=== PATIENT | male | born 1935 | race Caucasian/White ===

== ENCOUNTER → 2016-12-16 | Outpatient (CLI) | payer OTHER ==
[2015-12-02 11:22] VITALS: BP 108/62
[~2016-12-16] MED LIST: AMIN30LI2 PO; ASPI-482 PO; BRIM5DRO2 OP; BRIM5DRO3 EACHEYE; CALC1TAB75 PO; CARV3.12 PO; CARV6.25 PO; CARV6.252 PO; CITA20TA5 PO; DEXT237L PO; FURO-68 PO; FURO40TA4 PO; GADOBUTROL 10 MMOL/10 ML VIAL IV ONE; HYDR-2678 PO; HYDR12.53 PO; Hydrocodone/Acetaminophen PO; LATA2.5D2 OP; LATA2.5D3 OP; MULT1TAB97 PO; OMEG1CAP6 PO; OXYC-323 PO; POTA10TA12 PO; POTASSIUM CHLO10 MEQ PO; SIMV20TA3 PO; TAMS0.4C97 PO; TIMO1DRO2 OP; TIMO5DRO5 EACHEYE
--- NOTE | 2016-12-16 13:17 | KCIC ---
INDICATION: Solitary plasmacytoma of bone. Low back pain and the recent weeks. TECHNIQUE: Sagittal T1, sagittal T2, sagittal STIR, sagittal postcontrast, axial T1, axial T2, and axial postcontrast sequences are provided. 10 mL of intravenous Gadavist was administered without complication. Comparison is from March 01, 2016. FINDINGS: T1 hypointense enhancing lesion in the L5 vertebral body is slightly decreased in size. There is evidence of old pathologic fracture, similar degree of collapse is noted on today's study. Collapse posteriorly is greater than 50 percent. The lesion is T1 hypointense and T2 and STIR mildly hyperintense. An additional lesion is not identified. Relative fatty marrow from L4 through the sacrum when compared to the upper lumbar spine may be related to radiation change. There is no malalignment. There is diffuse disc desiccation. Disc height is relatively maintained. There is subcutaneous edema. The conus medullaris is normal in signal intensity and in position. Degenerative findings were described level by level on the prior study. Degenerative findings appear stable. There is canal stenosis at L3-L4 and L4-L5, moderate. This is secondary to degenerative disc disease and facet and ligamentum flavum hypertrophy. Foraminal narrowing is greatest at L4-L5. There is a lesion in the left ilium which has similar imaging characteristics to the L5 lesion, could represent a second plasmacytoma. Finding is similar to the June 22, 2015 exam. IMPRESSION: 1. Stable lesion at L5 compatible with provided history of plasmacytoma. 2. Lesion in the left ilium is stable as well. No new lesion is identified. 3. Degenerative findings are stable compared to a year ago. There is moderate canal stenosis at L3-L4 and L4-L5 with foraminal narrowing greatest at L4-L5. Electronically signed by: Esau Frias MD (12/16/2016 1:14 PM) [facility]-[email or web address]
== END | disposition home or self-care (01) ==
LOC: KCIC MRI 09:51
PROVIDERS: ATTEND Internal Medicine Hematology & Oncology
DX: C90.30 Solitary plasmacytoma not having achieved remission (principal); M48.06 Spinal stenosis, lumbar region
CPT/HCPCS: 72158; A9585

== ENCOUNTER → 2017-04-27 | Outpatient (CLI) | payer OTHER | END | disposition home or self-care (01) | LOC: KCIC 12:10 | DX: R05 Cough (principal) | CPT/HCPCS: 71046 ==

== ENCOUNTER 2017-06-24 20:02 | Inpatient (IN) | payer OTHER ==
[2017-06-24] MEDS: ASPIRIN CHEWABLE 81 MG TABLET. PO (20:25)
[2017-06-24 20:29] LABS: ADD MAN DIFF? NO
[2017-06-24] MEDS ORDERED: ONDANSETRON PF 4 MG/2 ML VIAL. (20:30)
[2017-06-24 20:31] LABS: BASO % 1 % (0-3); EOS # 0.1 x10^3/uL (0.0-0.7); EOS % 3 % (0-3); HEMOGLOBIN 11.4 g/dL (13.0-17.5); LYMPH # 1.5 x10^3/uL (1.0-4.8); LYMPH % 32 % (24-48); MEAN CORPUSCULAR HEMOGLOBIN 33 pg (25-35); MEAN CORPUSCULAR HGB CONC 34 g/dL (31-37); MEAN CORPUSCULAR VOLUME 96 fL (79-100); MONO # 0.4 x10^3/uL (0.0-1.1); MONO % 9 % (0-9); NEUT # 2.5 x10^3uL (1.8-7.7); NEUT % 56 % (31-73); PLATELET COUNT 166 x10^3/uL (140-400); RED BLOOD COUNT 3.45 x10^6/uL (4.30-5.70); RED CELL DISTRIBUTION WIDTH 13.9 % (11.5-14.5); WHITE BLOOD COUNT 4.6 x10^3/uL (4.0-11.0)
[2017-06-24] MEDS: fentaNYL PF VIAL 100 MCG/2 ML VIAL IV ×2 (20:35→21:49)
[2017-06-24] MEDS: ONDANSETRON PF 4 MG/2 ML VIAL. IV (20:35)
[2017-06-24] MEDS: NITROGLYCERIN SUBLINGUAL 0.4 MG BOTTLE OF 25. SL (20:35)
[2017-06-24 20:41] LABS: ANION GAP 6 (6-14); BLOOD UREA NITROGEN 17 mg/dL (8-26); BUN/CREATININE RATIO 19 (6-20); CALCIUM 9.8 mg/dL (8.5-10.1); CARBON DIOXIDE 32 mmol/L (21-32); CHLORIDE 104 mmol/L (98-107); CREATININE 0.9 mg/dL (0.7-1.3); GFR 81.4; GLUCOSE 139 mg/dL (70-99); POTASSIUM 3.8 mmol/L (3.5-5.1); SODIUM 142 mmol/L (136-145)
[2017-06-24 20:48] LABS: ALBUMIN 3.5 g/dL (3.4-5.0); ALBUMIN/GLOBULIN RATIO 0.9 (1.0-1.7); ALK PHOS 62 U/L (46-116); ALT (SGPT) 26 U/L (16-63); AST (SGOT) 25 U/L (15-37); LIPASE 84 U/L (73-393); TOTAL BILIRUBIN 0.3 mg/dL (0.2-1.0); TOTAL PROTEIN 7.4 g/dL (6.4-8.2)
[2017-06-24 20:48] LABS: TROPONINI 0.038 ng/mL (0.000-0.055)
[2017-06-24 20:52] LABS: NT-PRO BNP 341 pg/mL (0-449)
[2017-06-24] MEDS: CHLORTHALIDONE 25 MG TABLET. PO (21:48)
[2017-06-24 22:05] LABS: BARBITURATES NEG (NEG); BENZODIAZEPINES NEG (NEG); CANNABINOIDS NEG (NEG); COCAINE NEG (NEG); METHADONE NEG (NEG); OPIATES NEG (NEG); PHENCYCLIDINE NEG (NEG)
[2017-06-24 22:06] LABS: AMPHETAMINE/METHAMPHETAMINE NEG (NEG); ETHANOL, URINE NEG (NEG)
[2017-06-24] MEDS ORDERED: ONDANSETRON PF 4 MG/2 ML VIAL. IV (23:00)
[2017-06-24] MEDS ORDERED: MORPHINE SULFATE 4 MG/ML DISP.SYRIN. IV (23:00)
[2017-06-24] MEDS ORDERED: NITROGLYCERIN SUBLINGUAL 0.4 MG BOTTLE OF 25. SL (23:00)
[2017-06-24] MEDS ORDERED: DEXTROSE 50% 25 GM / 50ML DISP.SYRIN. IV (23:30)
[2017-06-24] MEDS: ACETAMINOPHEN 325 MG TABLET. PO (23:31)
[2017-06-25 03:29] LABS: TROPONINI 0.051 ng/mL (0.000-0.055)
[2017-06-25 05:13] LABS: ADD MAN DIFF? NO
[2017-06-25 05:43] LABS: BASO % 0 % (0-3); EOS # 0.1 x10^3/uL (0.0-0.7); EOS % 2 % (0-3); LYMPH # 1.3 x10^3/uL (1.0-4.8); LYMPH % 28 % (24-48); MEAN CORPUSCULAR HEMOGLOBIN 33 pg (25-35); MEAN CORPUSCULAR HGB CONC 35 g/dL (31-37); MEAN CORPUSCULAR VOLUME 96 fL (79-100); MONO # 0.4 x10^3/uL (0.0-1.1); MONO % 8 % (0-9); NEUT # 2.8 x10^3uL (1.8-7.7); NEUT % 62 % (31-73); PLATELET COUNT 137 x10^3/uL (140-400); RED BLOOD COUNT 3.01 x10^6/uL (4.30-5.70); RED CELL DISTRIBUTION WIDTH 14.2 % (11.5-14.5); WHITE BLOOD COUNT 4.5 x10^3/uL (4.0-11.0)
[2017-06-25 05:45] LABS: TROPONINI 0.044 ng/mL (0.000-0.055)
[2017-06-25 06:09] LABS: ANION GAP 12 (6-14); BLOOD UREA NITROGEN 17 mg/dL (8-26); CALCIUM 8.8 mg/dL (8.5-10.1); CARBON DIOXIDE 28 mmol/L (21-32); CHLORIDE 105 mmol/L (98-107); GFR 72.1; GLUCOSE 157 mg/dL (70-99); SODIUM 145 mmol/L (136-145)
[2017-06-25 06:23] LABS: POTASSIUM 2.8 mmol/L (3.5-5.1)
[2017-06-25] MEDS: INSULIN ASPART 300 UNITS/3 ML INSULN.PEN SQ ×3 (08:00→17:00)
[2017-06-25 08:05] LABS: POC GLUCOSE 124 mg/dL (70-99)
[2017-06-25] MEDS: POTASSIUM CHLORIDE 20 MEQ TABLET.ER. PO ×2 (08:13→17:23)
[2017-06-25] MEDS: hydroCHLOROthiazide 12.5 MG CAPSULE PO (09:26)
[2017-06-25] MEDS: ASPIRIN ENTERIC COATED 81 MG TABLET.DR. PO (09:26)
[2017-06-25] MEDS: CITALOPRAM 20 MG TABLET. PO (09:27)
[2017-06-25] MEDS: CARVEDILOL 6.25 MG TABLET. PO ×3 (09:27→17:24)
[2017-06-25 12:19] LABS: POC GLUCOSE 111 mg/dL (70-99)
[2017-06-25 16:59] LABS: POC GLUCOSE 116 mg/dL (70-99)
[2017-06-25] MEDS: LATANOPROST 0.005% OPHTH SOLUTION 2.5ML BOTTLE. OU (21:00)
[2017-06-25] MEDS: SIMVASTATIN 20 MG TABLET PO (21:26)
[2017-06-25] MEDS: TAMSULOSIN 0.4 MG CAP.ER.24H. PO (21:26)
[2017-06-25] MEDS: ACETAMINOPHEN 325 MG TABLET. PO (21:28)
[2017-06-26] MEDS: INSULIN ASPART 300 UNITS/3 ML INSULN.PEN SQ (08:00)
[2017-06-26 08:06] LABS: POC GLUCOSE 117 mg/dL (70-99)
[2017-06-26] MEDS: CITALOPRAM 20 MG TABLET. PO (08:14)
[2017-06-26] MEDS: POTASSIUM CHLORIDE 20 MEQ TABLET.ER. PO (08:14)
[2017-06-26] MEDS: ASPIRIN ENTERIC COATED 81 MG TABLET.DR. PO (08:15)
[2017-06-26] MEDS: CARVEDILOL 6.25 MG TABLET. PO (08:22)
[2017-06-26] MEDS: FUROSEMIDE 40 MG TABLET. PO (08:22)
[2017-06-26] MEDS: hydroCHLOROthiazide 12.5 MG CAPSULE PO (08:24)
[2017-06-26 09:48] LABS: POTASSIUM 3.4 mmol/L (3.5-5.1)
== END 2017-06-26 12:35 | disposition home health service (06) | DRG 305 ==
LOC: ER 20:02 → 5 NORTH 22:01
DX: I16.0 Hypertensive urgency (principal); G61.0 Guillain-Barre syndrome; I50.9 Heart failure, unspecified; E87.6 Hypokalemia; I11.0 Hypertensive heart disease with heart failure; E11.9 Type 2 diabetes mellitus without complications; E78.5 Hyperlipidemia, unspecified; F41.9 Anxiety disorder, unspecified; I25.10 Atherosclerotic heart disease of native coronary artery without angina pectoris; F32.9 Major depressive disorder, single episode, unspecified; T50.2X5A Adverse effect of carbonic-anhydrase inhibitors, benzothiadiazides and other diuretics, initial encounter; I25.2 Old myocardial infarction; Z85.46 Personal history of malignant neoplasm of prostate; Z86.73 Personal history of transient ischemic attack (TIA), and cerebral infarction without residual deficits; Z95.5 Presence of coronary angioplasty implant and graft
CPT/HCPCS: 36415; 70450; 71045; 80048; 80053; 80307; 82962; 83690; 83880; 84132; 84484; 85025; 93005; 96374; 96375; 96376; 99285; 99285-25; J1815; J2405; J3010

== ENCOUNTER 2017-07-21 06:51 | Outpatient (CLI) | payer OTHER ==
[2017-07-21 07:24] LABS: ADD MAN DIFF? NO
[2017-07-21 07:25] LABS: BASO % 1 % (0-3); EOS # 0.1 x10^3/uL (0.0-0.7); EOS % 3 % (0-3); HEMATOCRIT 35.1 % (39.0-53.0); HEMOGLOBIN 12.3 g/dL (13.0-17.5); LYMPH # 1.3 x10^3/uL (1.0-4.8); LYMPH % 29 % (24-48); MEAN CORPUSCULAR HEMOGLOBIN 33 pg (25-35); MEAN CORPUSCULAR HGB CONC 35 g/dL (31-37); MEAN CORPUSCULAR VOLUME 95 fL (79-100); MONO # 0.3 x10^3/uL (0.0-1.1); MONO % 7 % (0-9); NEUT # 2.8 x10^3uL (1.8-7.7); NEUT % 60 % (31-73); PLATELET COUNT 156 x10^3/uL (140-400); RED BLOOD COUNT 3.71 x10^6/uL (4.30-5.70); RED CELL DISTRIBUTION WIDTH 13.8 % (11.5-14.5); WHITE BLOOD COUNT 4.6 x10^3/uL (4.0-11.0)
[2017-07-21 07:37] LABS: PROTHROMBIN TIME PATIENT 12.3 SEC (11.7-14.0)
[2017-07-21] MEDS ORDERED: fentaNYL PF VIAL 100 MCG/2 ML VIAL (08:21)
[2017-07-21] MEDS ORDERED: MIDAZOLAM HCL/PF 2 MG/2 ML VIAL. (08:21)
[2017-07-21] MEDS ORDERED: LIDOCAINE WITH 8.4% SOD BICARB 3 ML DISP.SYRIN. (08:27)
[2017-07-21] MEDS: fentaNYL PF VIAL 100 MCG/2 ML VIAL IV (08:53)
[2017-07-21] MEDS: MIDAZOLAM HCL/PF 2 MG/2 ML VIAL. IV (08:53)
[2017-07-21] MEDS: LIDOCAINE WITH 8.4% SOD BICARB 3 ML DISP.SYRIN. IJ (08:53)
== END 2017-07-21 10:15 | disposition home or self-care (01) ==
LOC: INTRAD 06:51
DX: C79.51 Secondary malignant neoplasm of bone (principal); C80.1 Malignant (primary) neoplasm, unspecified
CPT/HCPCS: 36415; 38222; 77012; 85025; 85610; 88184; 88185; 88237; 99152; J2250; J3010

== ENCOUNTER → 2017-11-24 | Outpatient (CLI) | payer OTHER ==
[2017-07-21 10:00] VITALS: BP 133/68
[~2017-11-24] MED LIST changes: -CITA20TA5 PO; +CITA20TA6 PO; -GADOBUTROL 10 MMOL/10 ML VIAL IV ONE; -POTASSIUM CHLO10 MEQ PO
--- NOTE | 2017-11-24 14:44 | KCIC ---
EXAM: Metastatic Survey DATE: 11/24/2017 12:00 AM CLINICAL INDICATION: COMPARISON: No prior TECHNIQUE: Survey images of the skull, axial skeleton, pelvis and proximal appendicular skeleton submitted. PA view of the chest also submitted. FINDINGS: Lateral views of the skull are negative for focal lytic or blastic abnormality. Negative for acute fracture or sutural diastasis. Decreased bone density. Survey of the axial skeletal shows moderate degenerative changes of the cervical and lumbar spine. No spondylolisthesis. Negative focal lytic or blastic abnormality. Negative compression fracture. Comparative to appendicular skeleton, similar reduction in bone density. AP view of the pelvis is negative for focal lytic or blastic abnormality Comparative to appendicular skeleton, similar reduction in bone density. Negative pathologic fracture. Hip joint spaces are preserved bilaterally. Survey of the proximal appendicular skeleton is negative for focal lytic or blastic abnormality, or endosteal scalloping. Negative pathologic fracture. Decreased bone mineral density. PA chest exam is negative for consolidation or edema. Cardiac silhouette size normal. Negative expansile rib lesion. Old posterior right rib fractures are seen. Atherosclerotic calcifications of the tortuous aorta are seen. Negative lytic or blastic abnormality of the visualized marginal bony skeleton. IMPRESSION: 1. Within the constraints of decreased bone mineral density, no definite lytic or blastic lesion is identified. Electronically signed by: Jesus Nagel MD (11/24/2017 2:41 PM) [id number]
== END | disposition home or self-care (01) ==
LOC: KCIC 08:00
PROVIDERS: ATTEND Internal Medicine Hematology & Oncology
DX: C90.30 Solitary plasmacytoma not having achieved remission (principal); D47.2 Monoclonal gammopathy; I25.2 Old myocardial infarction; M16.0 Bilateral primary osteoarthritis of hip; I11.0 Hypertensive heart disease with heart failure; I50.9 Heart failure, unspecified; E11.9 Type 2 diabetes mellitus without complications; E78.5 Hyperlipidemia, unspecified; E87.6 Hypokalemia; I25.10 Atherosclerotic heart disease of native coronary artery without angina pectoris; Z86.73 Personal history of transient ischemic attack (TIA), and cerebral infarction without residual deficits; Z87.891 Personal history of nicotine dependence; Z85.46 Personal history of malignant neoplasm of prostate; Z82.49 Family history of ischemic heart disease and other diseases of the circulatory system
CPT/HCPCS: 77075

== ENCOUNTER 2017-11-27 08:55 | Outpatient (CLI) | payer OTHER ==
[2017-11-27] VITALS (8 sets, daily range): BP systolic 106–195; BP diastolic 64–100
[~2017-11-27] VITALS: Ht 177.8 cm; Wt 99.8 kg
[2017-11-27] MEDS ORDERED: LIDOCAINE WITH 8.4% SOD BICARB 3 ML DISP.SYRIN. ONE (10:14)
[2017-11-27 10:43] LABS: BASO % 1 % (0-3); EOS # 0.1 x10^3/uL (0.0-0.7); EOS % 2 % (0-3); HEMATOCRIT 33.1 % (39.0-53.0); HEMOGLOBIN 11.4 g/dL (13.0-17.5); LYMPH # 1.2 x10^3/uL (1.0-4.8); LYMPH % 27 % (24-48); MEAN CORPUSCULAR HEMOGLOBIN 33 pg (25-35); MEAN CORPUSCULAR HGB CONC 34 g/dL (31-37); MEAN CORPUSCULAR VOLUME 97 fL (79-100); MONO # 0.4 x10^3/uL (0.0-1.1); MONO % 8 % (0-9); NEUT # 2.7 x10^3uL (1.8-7.7); NEUT % 62 % (31-73); PLATELET COUNT 152 x10^3/uL (140-400); RED BLOOD COUNT 3.42 x10^6/uL (4.30-5.70); RED CELL DISTRIBUTION WIDTH 13.5 % (11.5-14.5); WHITE BLOOD COUNT 4.4 x10^3/uL (4.0-11.0)
[2017-11-27] MEDS ORDERED: fentaNYL PF VIAL 100 MCG/2 ML VIAL ONE (11:00)
[2017-11-27] MEDS ORDERED: MIDAZOLAM HCL/PF 2 MG/2 ML VIAL. ONE (11:00)
[2017-11-27 11:10] LABS: PROTHROMBIN TIME PATIENT 12.9 SEC (11.7-14.0)
[2017-11-27] MEDS ORDERED: fentaNYL PF VIAL 100 MCG/2 ML VIAL IV ONE (11:15)
[2017-11-27] MEDS ORDERED: MIDAZOLAM HCL/PF 2 MG/2 ML VIAL. IV ONE (11:15)
[2017-11-27] MEDS ORDERED: LIDOCAINE WITH 8.4% SOD BICARB 3 ML DISP.SYRIN. IJ ONE (11:15)
--- NOTE | 2017-11-27 11:41 | RAD ---
CT-guided bone marrow biopsy. 11/27/2017 11:36 AM Indication: PLASMACYTOMA, MYELOMA Discussion: The risks and benefits of the procedure, including but not limited to, bleeding and infection were discussed patient. Informed consent was obtained. The patient was brought to the CT scanner and placed in the prone position. A timeout procedure was performed. Hvac [employer]er CT imaging of the pelvis demonstrated left ilium amenable to bone marrow biopsy. The overlying soft tissues were prepped and draped using maximum sterile barrier technique. 1% lidocaine without epinephrine was administered for local anesthesia. Under intermittent CT guidance, an OncControl needle was advanced into the bone marrow of the left iliac crest. 2 Aspirates and 1 core biopsy samples were obtained. Samples were delivered to pathology was present at the time of procedure. The needle was removed and manual pressure held to achieve hemostasis. Secondary to scant cellularity with the sample, the process was repeated. No immediate complications were identified. The procedure was performed under conscious sedation including continuous cardiopulmonary monitoring via dedicated sedation nurse. Sedation time:25 minutes Impression: CT-guided bone marrow biopsy of the left iliac crest . PQRS Compliance Statement: One or more of the following individualized dose reduction techniques were utilized for this examination: 1. Automated exposure control 2. Adjustment of the mA and/or kV according to patient size 3. Use of iterative reconstruction technique
== END 2017-11-27 12:39 | disposition home or self-care (01) ==
LOC: INTRAD 08:55
PROVIDERS: ATTEND Internal Medicine Hematology & Oncology
DX: C90.30 Solitary plasmacytoma not having achieved remission (principal); Z79.01 Long term (current) use of anticoagulants
CPT/HCPCS: 36415; 38222; 77012; 85025; 85610; 85730; 99152; 99153; J2250; J3010; 88184; 88185; 88237

== ENCOUNTER → 2017-12-28 | Outpatient (CLI) | payer OTHER ==
[2017-12-21 11:00] VITALS: BP 124/65
[~2017-12-28] MED LIST changes: +BUPIVACAINE MPF 0.25% 10 ML VIAL. ONE; +BUSP10TA PO; +DOCU100C28 PO; +HYDR-2758 PO; +IOHEXOL 180 MG/ML 10 ML VIAL. ONE; +LIDOCAINE 2% PF 2ML VIAL. ONE; +methylPREDNISolone ACETATE 80 MG/ML VIAL. ONE
--- NOTE | 2017-12-28 20:58 | PAIN ---
DATE OF SERVICE: 12/28/2017 DIAGNOSIS: Bilateral sacroiliitis. HISTORY OF PRESENT ILLNESS: The patient is an 82-year-old male who returns for followup, last seen as an inpatient. The patient with sacroiliitis and significant posterior hip pain on the right side. The patient reports his left side is having some significant pain as well today and has become basically equal right and left with pain mostly with moving, changing positions, standing from sitting position and sitting from standing, is a cramping pain, is sharp, shooting. No radiation into the lower extremities currently, but sometimes into the groin on the right side. The patient reports his pain is a 7 on a scale of 10 at its worst, 4 on average and 4 at its least and is a 4 today. The patient reports it is much more difficult getting around and he is undergoing physical therapy currently, which he does report is helping he thinks significantly to increase his mobility and decrease his pain, but still is fairly tender with any movement or motion, especially standing and walking and again change in positions. The patient reports no new motor or sensory deficits. No new bowel or bladder incontinence or other complaints. PHYSICAL EXAMINATION: VITAL SIGNS: The patient's blood pressure 145/78, pulse 65, respirations are 18, temperature 97.7 degrees Fahrenheit, height is 5 feet 10 inches, weight is 216 pounds. GENERAL: The patient is awake, alert, oriented, appropriate, very pleasant demeanor. HEENT: Shows normocephalic, atraumatic. Extraocular movements are intact and symmetrical. Oral cavity: Mucous membranes are moist and pink. Dentition is intact. NECK: Shows anterior throat supple. CHEST: Shows normal on inspection. Breath sounds clear to auscultation bilaterally. HEART: Shows S1, S2 clear. ABDOMEN: Soft, nontender, nondistended. No palpable organomegaly is noted. No rebound or guarding demonstrated. BACK: Shows spine grossly in the midline, slight exaggerated thoracic kyphosis and minor flattening of lumbar lordotic curvature. Palpation over the spinous sacroiliac region shows significant tenderness bilaterally, slightly worse on the right than the left, but present bilaterally without significant radiation. The patient has good rotational motion of the lumbar spine without significant tenderness as well as extension and flexion without difficulty. EXTREMITIES: Lower extremities show deep tendon reflexes at 1+ in the patellar and tendo calcaneus tendons. Motor exam is approximately 4 on a scale of 5 dorsiflexion and extension, but equal and symmetrical. Options were discussed with the patient. The patient's old chart was reviewed as is his current medication regimen updated. Current review of systems is updated today as well. We will proceed with bilateral sacroiliac joint injection today with fluoroscopic guidance. Risks were again discussed including, but not limited to bleeding, infection, possibility of intravascular injection sequelae, spread of local anesthetic and numbness, side effects of steroid medication, exposure to fluoroscopy and poor results regarding pain control. The patient understands and wished to proceed. The patient will return to the clinic in approximately 2 weeks for followup, was counseled on return appointment, activity level and side effects to be aware of. DIAGNOSIS: Bilateral sacroiliitis. PROCEDURE: Bilateral sacroiliac joint injections using C-arm fluoroscopic guidance under sterile prep and drape using local anesthetic. MEDICATION INJECTED: A total of 80 mg Depo-Medrol plus 6 mL of 0.25% bupivacaine and 3 mL of Isovue for contrast. CONDITION AT DISCHARGE: Stable. The patient tolerated the procedure well, had no complications. LAURA GOOD MD DR: PHANI/kizzy JOB#: [id number] / [id number]
== END | disposition home or self-care (01) ==
LOC: PNCL 14:06
PROVIDERS: ATTEND Anesthesiology
DX: M46.1 Sacroiliitis, not elsewhere classified (principal); D64.9 Anemia, unspecified; I25.10 Atherosclerotic heart disease of native coronary artery without angina pectoris; N40.0 Benign prostatic hyperplasia without lower urinary tract symptoms; I42.0 Dilated cardiomyopathy; E78.5 Hyperlipidemia, unspecified; F41.9 Anxiety disorder, unspecified; M16.0 Bilateral primary osteoarthritis of hip; I11.0 Hypertensive heart disease with heart failure; I50.9 Heart failure, unspecified; E11.9 Type 2 diabetes mellitus without complications; E03.9 Hypothyroidism, unspecified; F32.9 Major depressive disorder, single episode, unspecified; I25.2 Old myocardial infarction; E66.01 Morbid (severe) obesity due to excess calories; Z68.30 Body mass index [BMI] 30.0-30.9, adult; Z85.46 Personal history of malignant neoplasm of prostate; Z95.5 Presence of coronary angioplasty implant and graft; Z79.899 Other long term (current) drug therapy; Z79.82 Long term (current) use of aspirin; Z85.89 Personal history of malignant neoplasm of other organs and systems; Z79.01 Long term (current) use of anticoagulants; Z87.891 Personal history of nicotine dependence; Z86.73 Personal history of transient ischemic attack (TIA), and cerebral infarction without residual deficits
CPT/HCPCS: 27096; J1040; J2001; J3490; Q9965; G0260

== ENCOUNTER → 2018-02-08 | Outpatient (CLI) | payer OTHER ==
[2017-12-21 11:00] VITALS: BP 124/65
[~2018-02-08] MED LIST changes: +LIDOCAINE 1% PF 2 ML VIAL. ONE; -LIDOCAINE 2% PF 2ML VIAL. ONE
--- NOTE | 2018-02-08 15:12 | PAIN ---
DATE OF SERVICE: 02/08/2018 PROGRESS NOTE FOR PAIN CLINIC DIAGNOSES: 1. Bilateral sacroiliitis 2. Right hip joint pain with primary osteoarthritis, right hip joint. HISTORY OF PRESENT ILLNESS: The patient is an 82-year-old male who returns for followup status post bilateral sacroiliac joint injections on 12/28/2017. The patient did fairly well with these, but without significant improvement on the right side. The patient reports the left side is doing much better, the right side has still significant pain. The patient has recently seen his orthopedic surgeon with new evaluation and probable etiology of pain from the right intraarticular acetabular femoral joint. , the patient reports worse with weightbearing, standing, especially with stepping on a stair on his right leg with pain in the hip itself radiating into the groin and into the anterior thigh as well as in the posterior aspect of the hip. The patient reports it is better with sitting or lying down, does not awaken him from sleep at night, sleeps 7-8 hours at a time. The patient reports pain is a 7 on a scale of 10 at its worst, 5 on average and 3 at its least and is a 5 today. The patient reports it is sharp, stabbing, becoming more constant, again worse with ambulation, standing, changing positions, getting up from sitting position as well. The patient reports no new motor or sensory deficits, no bowel or bladder incontinence or other complaints. PHYSICAL EXAMINATION: VITAL SIGNS: The patient's blood pressure is 107/67, pulse 74, respirations 16, temperature 97.6 degrees Fahrenheit, weight is 213 pounds. GENERAL: The patient is awake, alert, oriented, appropriate, very pleasant demeanor. The patient is accompanied by his spouse. HEENT: Shows normocephalic, atraumatic. Extraocular movements are intact and symmetrical. Oral cavity: Mucous membranes are moist and pink. Dentition is intact. NECK: Shows anterior throat supple without palpable lymphadenopathy noted. Swallow reflex is symmetrical. CHEST: Shows normal on inspection. Breath sounds are clear to auscultation bilaterally. HEART: Shows S1, S2 clear. No murmurs auscultated. ABDOMEN: Soft, nontender, nondistended. BACK: Shows spine grossly in the midline. Exaggerated thoracic kyphosis, some flattening of cervical lordotic curvature and lumbar lordotic curvature. Paraspinous musculature in the lumbar distribution shows symmetrical with palpation, on rotational motion shows limited rotational motion, but not secondary to pain as well as extension and flexion, however performed without significant pain reported. EXTREMITIES: Lower extremities show deep tendon reflexes at 1+ in the patellar and tendo-calcaneus tendons. Motor exam is approximately 4 on a scale of 5, but equal and symmetrical with dorsiflexion, extension, quadriceps and hamstring flexion. Peripheral pulses are 1+ posterior tibia. No peripheral edema is noted bilaterally. The patient's right hip shows positive John's sign with external rotation of the right hip and knee flexion. Left side is tender, but not nearly to the extent that it is on the right with this maneuver. Options were discussed with the patient and the patient's spouse who accompanies him to this visit today. The patient's old chart was reviewed as his current medication regimen updated. Current review of systems updated today as well. We will proceed with a right intraarticular hip joint injection today with fluoroscopic guidance. Risks were discussed including but not limited to bleeding, infection, possibility of intravascular injection sequelae, spread of local anesthetic and numbness, side effects of steroid medication and poor results regarding pain control. The patient understands and wished to proceed. The patient will return to the clinic in approximately 2 weeks for followup, was counseled on return appointment, activity level and side effects to be aware of. DIAGNOSIS: Right hip joint pain with primary osteoarthritis, right hip joint. PROCEDURE: Right intraarticular hip joint injection using C-arm fluoroscopic guidance under sterile prep and drape using local anesthetic. MEDICATION INJECTED: A total of 80 mg of Depo-Medrol plus total of 3 mL of 0.25% bupivacaine and 3 mL of Isovue for contrast. CONDITION AT DISCHARGE: Stable. The patient tolerated the procedure well, had no complications. LAURA GOOD MD DR: PHANI/kizzy JOB#: [id number] / [id number]
== END | disposition home or self-care (01) ==
LOC: PNCL 10:37
PROVIDERS: ATTEND Anesthesiology
DX: M16.11 Unilateral primary osteoarthritis, right hip (principal); M46.1 Sacroiliitis, not elsewhere classified
CPT/HCPCS: 20610; 77002; J1040; J3490; Q9965

== ENCOUNTER → 2018-03-21 | Outpatient (CLI) | payer OTHER ==
[2017-12-21 11:00] VITALS: BP 124/65
[~2018-03-21] MED LIST changes: -BUPIVACAINE MPF 0.25% 10 ML VIAL. ONE; +CARV6.2511 PO; -CARV6.252 PO; +CONTRAST GIVEN. MC PRN; -HYDR-2758 PO; +HYDR-2761 PO; -HYDR12.53 PO; +HYDR12.575 PO; -IOHEXOL 180 MG/ML 10 ML VIAL. ONE; +IOHEXOL 240 MG/ML 50ML VIAL. PO ONE; +IOHEXOL 300 MG/ML 100ML VIAL. IV ONE; +IOHEXOL 300 MG/ML 100ML VIAL. ONE; -LIDOCAINE 1% PF 2 ML VIAL. ONE; -OXYC-323 PO; +OXYC1TAB15 PO; -methylPREDNISolone ACETATE 80 MG/ML VIAL. ONE
[2018-03-21 10:41] LABS: BASO % 1 % (0-3); EOS # 0.1 x10^3/uL (0.0-0.7); EOS % 2 % (0-3); HEMATOCRIT 30.4 % (39.0-53.0); HEMOGLOBIN 10.5 g/dL (13.0-17.5); LYMPH # 1.1 x10^3/uL (1.0-4.8); LYMPH % 24 % (24-48); MEAN CORPUSCULAR HEMOGLOBIN 32 pg (25-35); MEAN CORPUSCULAR HGB CONC 34 g/dL (31-37); MEAN CORPUSCULAR VOLUME 92 fL (79-100); MONO # 0.5 x10^3/uL (0.0-1.1); MONO % 10 % (0-9); NEUT # 2.9 x10^3uL (1.8-7.7); NEUT % 64 % (31-73); PLATELET COUNT 169 x10^3/uL (140-400); RED CELL DISTRIBUTION WIDTH 14.4 % (11.5-14.5); WHITE BLOOD COUNT 4.5 x10^3/uL (4.0-11.0)
[2018-03-21 11:01] LABS: ALBUMIN 3.2 g/dL (3.4-5.0); CALCIUM 9.3 mg/dL (8.5-10.1); DIRECT BILIRUBIN 0.1 mg/dL (0.0-0.2); GFR 71.9; POTASSIUM 3.6 mmol/L (3.5-5.1); TOTAL BILIRUBIN 0.3 mg/dL (0.2-1.0)
--- NOTE | 2018-03-21 14:44 | RAD ---
Examination: CT of the abdomen pelvis with IV contrast HISTORY: History of left-sided abdominal pain COMPARISON: 02/11/2015 TECHNIQUE: Axial CT images of the abdomen pelvis were performed with IV contrast. Coronal and sagittal reformats are performed Exposure: One or more of the following individualized dose reduction techniques were utilized for this examination: 1. Automated exposure control 2. Adjustment of the mA and/or kV according to patient size 3. Use of iterative reconstruction technique FINDINGS: The bibasilar lungs are clear. No evidence of free air identified in the abdomen. The visualized liver, spleen, adrenals grossly appears unremarkable. The gallbladder is mildly distended. Moderate size hiatal hernia. The small bowel is nondilated. Feces and gas noted in the colon. Multiple sigmoid colon diverticulosis. Feces and gas noted in the colon. Urinary bladder is mildly distended. The bilateral kidneys enhance symmetrically. Multiple cystic structures identified in the bilateral kidneys with the largest measuring 7.3 cm likely cysts. Mild superior endplate compression change of L2 vertebral body. There is moderate size compression change of L5 vertebral body. There is a lytic bone density identified in the L5 vertebral body which appears somewhat mildly sclerotic of the edges, similar to prior exam could be treated metastasis. Severe aortic atherosclerosis. Moderate vascular calcifications identified in the superior mesenteric artery and the bilateral renal arteries proximally. Impression: 1. Moderate hiatal hernia. 2. Bilateral renal cysts. 2. Multiple sigmoid colon diverticulosis. 4. There is a lytic bone density identified in the L5 vertebral body which appears somewhat mildly sclerotic of the edges, similar to prior exam could be treated metastasis. 5. Mild age indeterminate superior endplate compression change of L2 vertebral body. Electronically signed by: Aaron Hrerera MD (03/21/2018 2:40 PM) [id number]
== END | disposition home or self-care (01) ==
LOC: CT 09:52
PROVIDERS: ATTEND Family Medicine
DX: K44.9 Diaphragmatic hernia without obstruction or gangrene (principal); K57.30 Diverticulosis of large intestine without perforation or abscess without bleeding; K82.8 Other specified diseases of gallbladder; I70.0 Atherosclerosis of aorta; K55.1 Chronic vascular disorders of intestine; Z87.891 Personal history of nicotine dependence
CPT/HCPCS: 36415; 74177; 80048; 80076; 83690; 85025; Q9966; Q9967

== ENCOUNTER → 2018-05-25 | Outpatient (CLI) | payer OTHER ==
[2018-05-21 09:57] VITALS: BP 145/74
[~2018-05-25] MED LIST changes: +ACYC800T PO; +ASPI81TA50 PO; +CARB1TAB2 PO; -CONTRAST GIVEN. MC PRN; +FERR300L PO; -IOHEXOL 240 MG/ML 50ML VIAL. PO ONE; -IOHEXOL 300 MG/ML 100ML VIAL. IV ONE; -IOHEXOL 300 MG/ML 100ML VIAL. ONE; +LATA2.5D3 EACHEYE; +Pantoprazole PO
--- NOTE | 2018-05-25 15:28 | KCIC ---
Ultrasound venous Doppler INDICATION:Left lower extremity swelling TECHNIQUE: Grayscale, color Doppler and spectral waveform ultrasound images of the left lower extremity deep veins obtained. COMPARISON: None FINDINGS: The interrogated deep veins are compressible and demonstrate evidence of blood flow with normal respiratory variation and response to augmentation. IMPRESSION: No sonographic evidence of acute DVT of the left lower extremity deep veins. Electronically signed by: Lele Mena DO (05/25/2018 3:25 PM) [id number]
== END | disposition home or self-care (01) ==
LOC: KCIC US 13:54
PROVIDERS: ATTEND Internal Medicine Hematology & Oncology
DX: M79.89 Other specified soft tissue disorders (principal)
CPT/HCPCS: 93971

== ENCOUNTER → 2018-09-27 | Outpatient (CLI) | payer OTHER ==
[2018-06-19 15:00] VITALS: BP 117/70
--- NOTE | 2018-09-27 16:23 | KCIC ---
Examination: Left Lower Extremity Venous Doppler Ultrasound History: Left leg swelling, calf pain Comparison: 05/25/2018 Procedure: Thornton scale, color flow 2D and spectal waveform analysis images are obtained with and without compression in the area of the common femoral vein, superficial femoral vein - femoral vein junction, main femoral vein (superficial femoral vein) and popliteal vein. Veins of the proximal calf are also imaged. Findings: There is normal duplex flow, color flow and compressibility of all visualized vein segments. No evidence of deep venous thrombus is present. Impression: No evidence of DVT in the visualized left lower extremity venous system. Electronically signed by: Aaron Herrera MD (09/27/2018 4:20 PM) [facility]-KCIC2
== END | disposition home or self-care (01) ==
LOC: KCIC US 12:18
PROVIDERS: ATTEND Internal Medicine Hematology & Oncology
DX: C90.00 Multiple myeloma not having achieved remission (principal); M79.605 Pain in left leg; M79.89 Other specified soft tissue disorders
CPT/HCPCS: 93971

== ENCOUNTER 2019-04-29 10:16 | Emergency (ER) | payer MEDICARE ==
[~2019-04-29] VITALS: Ht 177.8 cm; Wt 88.0 kg
[~2019-04-29 10:16] MED LIST changes: +POTASSIUM CHLO10 ME1 PO; +SIMV20TA18 PO; -SIMV20TA3 PO
[2019-04-29] MEDS ORDERED: traMADol 50 MG TABLET PO ONE (11:00)
--- NOTE | 2019-04-29 11:44 | RAD ---
EXAM: Pelvis and left hip, 3 views; lumbar spine, 3 views. HISTORY: Pain. Fall. COMPARISON: None. FINDINGS: Pelvis and left hip: A frontal view of the pelvis and frontal and frog-leg views of the left hip are obtained. There is no fracture, dislocation or subluxation. There is lucency involving the cortex of the left inferior pubic ramus which is only seen on a single image and is likely artifactual. No convincing pubic ramus fracture is seen. There is mild bilateral hip osteoarthritis with marginal acetabular and femoral head spurring. Lumbar spine: 3 views of the lumbar spine are obtained. There is degenerative endplate remodeling with disc space narrowing and facet arthropathy predominantly at L4-5 and L5-S1. No fracture is seen. IMPRESSION: 1. Mild bilateral hip osteoarthritis. 2. Multilevel degenerative change involving the lumbar spine, primarily at L4-S1. Electronically signed by: Amee Henderson MD (04/29/2019 11:40 AM) [facility] [place]
--- NOTE | 2019-04-29 11:57 | PHYS DOC ---
Past Medical History Past Medical History: Cancer, Heart Disease, Hypertension, Other Additional Past Medical Histor: PROSTATE CA. 2008,PARKINSONS,MULTIPLE MYELOMA, GUILLAIN BARRE SYNDROME Past Surgical History: Other Additional Past Surgical Histo: BONE MARROW ASPIRATION, CARDIAC STENT Alcohol Use: None Drug Use: None Adult General Chief Complaint Chief Complaint: HIP PAIN HPI HPI Patient is a 83 year old male, accompanied by his , who presents to the ER with complaints of left hip, and low back back pain after a fall from standing one week ago. He states that he uses a walker for ambulation and he was transitioning from his walker to turn into the bathroom when he lost his balance and fell. He reports an chronic unsteady gait due to Parkinson's disease. Pt denies any new numbness, tingling, or weakness of extremities. He denies any head or neck pain. Pt denies LOC with the fall and he denies any nausea, vom iting, abdominal pain, saddle anesthesia, or loss of bowel/bladder control. He has been taking ibuprofen at home for pain relief and he currently rates his pain 5/10 on the pain scale. All other ROS is neg unless otherwise noted in HPI. Review of Systems Review of Systems See Above Current Medications Current Medications Current Medications Medications (Trade) Dose Ordered Sig/Isaac Start Time Stop Time Status Last Admin Dose Admin Orphenadrine Citrate (Norflex) 60 mg 1X ONCE 04/29/19 12:15 04/29/19 12:16 DC 04/29/19 12:38 60 MG Tramadol HCl (Ultram) 50 mg 1X ONCE 04/29/19 11:00 04/29/19 11:01 DC 04/29/19 11:29 50 MG Allergies Allergies Allergies Coded Allergies Type Severity Reaction Last Updated Verified No Known Medication Allergies Allergy Unknown 11/30/17 Yes Physical Exam Physical Exam See Above Constitutional: Well developed, well nourished, no acute distress, non-toxic appearance. [] HENT: Normocephalic, atraumatic, bilateral external ears normal, nose normal. [] Eyes: PERRLA, EOMI, conjunctiva normal, no discharge. [] Neck: Normal range of motion, no stridor. [] Cardiovascular:Heart rate regular rhythm Lungs & Thorax: Bilateral breath sounds clear to auscultation, Respirations even and unlabored, no retractions, no respiratory distress [] Abdomen: soft, no tenderness, no masses, no pulsatile masses. [] Skin: Warm, dry, no erythema, no rash. [] Back: no CVA tenderness; L paraspinal lumbar TTP, lumbar bony TTP, no crepitus, no obvious deformity Extremities: L lateral hip TTP, no shortening, no rotation, no crepitus, increased pain with ROM, limited ROM due to pain, no edema; R hip non-tender, no cyanosis, no clubbing, ROM intact, no edema. [] Neurologic: Alert and oriented X 3, no focal deficits noted. [] Psychologic: Affect normal, judgement normal, mood normal. [] Current Patient Data Vital Signs Vital Signs Date Time Temp Pulse Resp B/P (MAP) Pulse Ox O2 Delivery O2 Flow Rate FiO2 04/29/19 14:30 74 18 127/68 (87) 99 Room Air 04/29/19 10:40 99.5 99.5 Lab Values Laboratory Tests Test 04/29/19 12:37 Urine Collection Type Unknown Urine Color Yellow Urine Clarity Clear Urine pH 6.5 Urine Specific [place] 1.010 Urine Protein Negative mg/dL (NEG-TRACE) Urine Glucose (UA) Negative mg/dL (NEG) Urine Ketones (Stick) Negative mg/dL (NEG) Urine Blood Negative (NEG) Urine Nitrite Negative (NEG) Urine Bilirubin Negative (NEG) Urine Urobilinogen Dipstick 0.2 mg/dL (0.2 mg/dL) Urine Leukocyte Esterase Negative (NEG) Urine RBC 0 /HPF (0-2) Urine WBC Occ /HPF (0-4) Urine Squamous Epithelial Cells Occ /LPF Urine Bacteria 0 /HPF (0-FEW) Urine Hyaline Casts Few /HPF EKG EKG [] Radiology/Procedures Radiology/Procedures PROCEDURE: LUMBAR SPINE 2-3V EXAM: Pelvis and left hip, 3 views; lumbar spine, 3 views. HISTORY: Pain. Fall. COMPARISON: None. FINDINGS: Pelvis and left hip: A frontal view of the pelvis and frontal and frog-leg views of the left hip are obtained. There is no fracture, dislocation or subluxation. There is lucency involving the cortex of the left inferior pubic ramus which is only seen on a single image and is likely artifactual. No convincing pubic ramus fracture is seen. There is mild bilateral hip osteoarthritis with marginal acetabular and femoral head spurring. Lumbar spine: 3 views of the lumbar spine are obtained. There is degenerative endplate remodeling with disc space narrowing and facet arthropathy predominantly at L4-5 and L5-S1. No fracture is seen. IMPRESSION: 1. Mild bilateral hip osteoarthritis. 2. Multilevel degenerative change involving the lumbar spine, primarily at L4-S1.[] Course & Med Decision Making Course & Med Decision Making Pertinent Labs and Imaging studies reviewed. (See chart for details) 1242- Spoke with Dr. Sullivan and advised of patient in the ER. X-rays negative, UA pending. Advised that is worried about falls. Will offer patient admit for rehab. Patient declined admission for pain control. He was given IM norflex and tramadol in the ER, he reported comfort with rest after these mediations. Pt was instructed to follow up with his doctor in 1-2 days, return to the ER if symptoms worsen. Prescriptions written for flexeril and tramadol PRN Pt and his verbalized an understanding of home care, medications, follow- up, and return to ED instructions and were in agreement with the plan of care. [] Dragon Disclaimer Dragon Disclaimer This electronic medical record was generated, in whole or in part, using a voice recognition dictation system. Departure Departure Impression: Primary Impression: Hip pain Additional Impressions: Sciatica of left side Back pain Disposition: 01 HOME, SELF-CARE Condition: STABLE Referrals: TAWNY SULLIVAN MD (PCP) Patient Instructions: Back Pain, Adult, [id number], Hip Pain, Sciatica, [id number] Additional Instructions: Fill the prescription(s) and use as directed. Apply heat or ice for to sore areas as needed for comfort. Activity as tolerated. Follow up with your primary care doctor this week if symptoms persist, return to the ER if symptoms worsen. Scripts Cyclobenzaprine Hcl (CYCLOBENZAPRINE HCL) 5 Mg Tablet 1 TAB PO TID for 7 Days, #21 TAB 0 Refills Prov: [facility] 04/29/19 Tramadol Hcl (TRAMADOL HCL) 50 Mg Tablet 50 MG PO Q6HRS PRN for PAIN for 3 Days, #12 TAB 0 Refills Prov: [facility] 04/29/19 Problem Qualifiers Primary Impression: Hip pain Laterality: left Qualified Codes: M25.552 - Pain in left hip Additional Impressions: Back pain Back pain location: low back pain Chronicity: unspecified Back pain laterality: bilateral Sciatica presence: with sciatica Sciatica laterality: sciatica of left side Qualified Codes: M54.42 - Lumbago with sciatica, left side MOLLY SANTOS APRN Apr 29, 2019 11:57
[2019-04-29] MEDS ORDERED: ORPHENADRINE CITRATE 60 MG/2 ML VIAL. IM ONE (12:15)
[2019-04-29 12:51] LABS: BILIRUBIN,URINE NEGATIVE (NEG); CLARITY,URINE CLEAR; COLOR,URINE YELLOW; NITRITE,URINE NEGATIVE (NEG); PH,URINE 6.5; PROTEIN,URINE NEGATIVE (NEG-TRACE); UROBILINOGEN,URINE 0.2 mg/dL (0.2 mg/dL)
[2019-04-29 13:15] LABS: BACTERIA,URINE 0 /HPF (0-FEW); HYALINE CASTS, URINE FEW /HPF; RBC,URINE 0 /HPF (0-2); SQUAMOUS EPITHELIAL CELL,UR OCC /LPF; WBC,URINE OCC /HPF (0-4)
[2019-04-29] MEDS ORDERED: TRAM50TA PO (13:39)
[2019-04-29] MEDS ORDERED: CYCL5TAB PO (13:39)
[2019-04-29 14:30] VITALS: BP 127/68
== END 2019-04-29 15:18 | disposition home or self-care (01) ==
LOC: ER 10:16
DX: M25.552 Pain in left hip (principal); M54.42 Lumbago with sciatica, left side; I11.9 Hypertensive heart disease without heart failure; G20 Parkinson's disease; G61.0 Guillain-Barre syndrome; Z95.5 Presence of coronary angioplasty implant and graft
CPT/HCPCS: 72100; 73502; 81001; 96372; 99285; J2360

== ENCOUNTER → 2019-09-06 | Outpatient (CLI) | payer MEDICARE, OTHER ==
[~2019-09-06] MED LIST changes: +CYCL5TAB PO; +TRAM50TA PO
--- NOTE | 2019-09-09 17:56 | RAD ---
EXAM: PET W CT TOP OF HEAD TO FEET EXAM DATE: 09/06/2019 INDICATION: MULTIPLE MYELOMA RADIOPHARMACEUTICAL: 14.4 mCi of F-18 Fluorodeoxyglucose (FDG) I.V. via the left antecubital fossa. TECHNIQUE: Patient weight: 192 pounds. Following at least four-hour fasting, the patient's blood glucose was 143 mg/dl. Approximately 1 hour after administration of FDG, overlapping emission scanning was performed from the top of the head through both feet. A low-dose CT was performed for attenuation correction purposes and anatomic localization. Fused images of PET and CT were reviewed. Any standardized uptake values (SUV) reported are maximum values within a volume region of interest, expressed in gm/ml. COMPARISON: Pelvis and left hip x-rays of 04/29/2019, CT abdomen and pelvis without IV contrast of 05/16/2018. 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 No abnormal soft tissue FDG uptake in the head and neck, chest, abdomen or pelvis is otherwise identified. There is focal uptake in the anterior right fifth rib to max SUV of 4.11 and in the mid left sixth rib to max SUV of 3.91. Focal uptake in the left iliac bone is present to max SUV of 6.56. CT: A tiny sclerotic focus (axial image 124 of series 3) in the anterolateral right fifth rib correlates with the area of increased FDG uptake. It is anterior to an old, healed right sixth rib fracture. Similar tiny sclerotic focus in the left sixth rib also correlates with the FDG uptake on same-day PET scan (image 121 of axial series 3, image 124 of fused axial series 603). There is a circumscribed osteolytic lesion in the left iliac bone that may correlate with the area of abnormal FDG uptake (axial image 243 of series 3), allowing for possible registration artifact (fused axial images 53 versus images 54 and 55 on series 603). Additional findings on CT including a large hiatal hernia, multiple renal cortical cysts, largest in the anterior right kidney measuring 7 cm and exerting some mild mass effect on the IVC, extensive arterial calcifications including the origins of both renal arteries, scattered colonic diverticuli and radiopaque densities around the prostate gland that could represent fiducial markers from previous radiotherapy. The bones show generalized osteopenia. IMPRESSION: There are 3 sites of FDG uptake that could reflect metabolically active lesions of myeloma; these include the right fifth and left sixth ribs and the left ilium as described. Otherwise, no abnormal FDG uptake identified. Electronically signed by: Adin Dai MD (09/09/2019 5:53 PM) [id number]
== END ==
LOC: PETSC 08:22
PROVIDERS: ATTEND Internal Medicine Hematology & Oncology
DX: C90.00 Multiple myeloma not having achieved remission (principal)
CPT/HCPCS: 78815; A9552

== ENCOUNTER → 2019-09-09 | Outpatient (CLI) | payer MEDICARE, OTHER ==
[2019-09-09 10:12] LABS: BASO % 1 % (0-3); EOS # 0.1 x10^3/uL (0.0-0.7); EOS % 3 % (0-3); HEMATOCRIT 23.2 % (39.0-53.0); HEMOGLOBIN 8.1 g/dL (13.0-17.5); LYMPH # 0.5 x10^3/uL (1.0-4.8); LYMPH % 19 % (24-48); MEAN CORPUSCULAR HEMOGLOBIN 38 pg (25-35); MEAN CORPUSCULAR HGB CONC 35 g/dL (31-37); MEAN CORPUSCULAR VOLUME 109 fL (79-100); MONO # 0.2 x10^3/uL (0.0-1.1); MONO % 8 % (0-9); NEUT # 1.9 x10^3/uL (1.8-7.7); NEUT % 70 % (31-73); PLATELET COUNT 126 x10^3/uL (140-400); RED BLOOD COUNT 2.13 x10^6/uL (4.30-5.70); WHITE BLOOD COUNT 2.7 x10^3/uL (4.0-11.0)
[2019-09-09 12:47] VITALS: BP 186/79
[2019-09-09 13:02] VITALS: BP 182/86
[2019-09-09 13:50] VITALS: BP 177/81
[2019-09-09 14:35] VITALS: BP 179/84
== END | disposition home or self-care (01) ==
LOC: OPS 09:12
PROVIDERS: ATTEND Internal Medicine Hematology & Oncology
DX: D64.9 Anemia, unspecified (principal)
CPT/HCPCS: 36415; 36430; 85025; 86850; 86900; 86901; 86920; P9040

== ENCOUNTER 2019-12-23 12:26 | Emergency (ER) | payer MEDICARE, OTHER ==
[~2019-12-23] VITALS: Ht 177.8 cm; Wt 86.0 kg
--- NOTE | 2019-12-23 12:47 | PHYS DOC ---
Past Medical History Past Medical History: Cancer, Heart Disease, Hypertension, Other Additional Past Medical Histor: PROSTATE CA. 2008,PARKINSONS,MULTIPLE MYELOMA, GUILLAIN BARRE SYNDROME Past Surgical History: Other Additional Past Surgical Histo: BONE MARROW ASPIRATION, CARDIAC STENT Smoking Status: Former Smoker Alcohol Use: None Drug Use: None General Adult EDM: Chief Complaint: SYNCOPE HPI: HPI: Patient is a 84 year old male who was brought here for by EMS from home after he became dizzy, fell down on his left side while he was standing to urinate in the bathroom. He was found to have low blood pressure, 70/40. He is complaining of headache, left shoulder pain, left side hip pain. No chest pain, no shortness of air, no back pain. Review of Systems: Review of Systems: Constitutional: Denies fever or chills. [] Eyes: Denies change in visual acuity. [] HENT: Denies nasal congestion or sore throat. [] Respiratory: Denies cough or shortness of breath. [] Cardiovascular: Denies chest pain or edema. [] GI: Denies abdominal pain, nausea, vomiting, bloody stools or diarrhea. [] : Denies dysuria. [] Musculoskeletal: Positive for left shoulder pain, left side hip pain.] Integument: Denies rash. [] Neurologic: Positive for headache, no focal weakness or sensory changes. [] Endocrine: Denies polyuria or polydipsia. [] Lymphatic: Denies swollen glands. [] Psychiatric: Denies depression or anxiety. [] Heart Score: Risk Factors: Risk Factors: DM, Current or recent (<one month) smoker, HTN, HLP, family history of CAD, obesity. Risk Scores: Score 0 - 3: 2.5% MACE over next 6 weeks - Discharge Home Score 4 - 6: 20.3% MACE over next 6 weeks - Admit for Clinical Observation Score 7 - 10: 72.7% MACE over next 6 weeks - Early Invasive Strategies Allergies: Allergies: Allergies Coded Allergies Type Severity Reaction Last Updated Verified No Known Medication Allergies Allergy Unknown 09/09/19 Yes Physical Exam: PE: Constitutional: Well developed, well nourished, no acute distress, non-toxic appearance. [] HENT: Normocephalic, atraumatic, bilateral external ears normal, oropharynx moist, no oral exudates, nose normal. [] Eyes: PERRLA, EOMI, conjunctiva normal, no discharge. [] Neck: Normal range of motion, no tenderness, supple, no stridor. [] Cardiovascular:Heart rate regular rhythm, no murmur [] Lungs & Thorax: Bilateral breath sounds clear to auscultation [] Abdomen: Bowel sounds normal, soft, no tenderness, no masses, no pulsatile masses. [] Skin: Warm, dry, no erythema, no rash. [] Back: No tenderness, no CVA tenderness. [] Extremities: Left shoulder is tender to palpation, no deformity, Left hip is tender to palpation, no deformity. Neurologic: Alert and oriented X 3, normal motor function, normal sensory function, no focal deficits noted. [] Psychologic: Affect normal, judgement normal, mood normal. [] Current Patient Data: Labs: Current Medications Medications (Trade) Dose Ordered Sig/Isaac Route PRN Reason Start Time Stop Time Status Last Admin Dose Admin Acetaminophen (Tylenol) 1,000 mg 1X ONCE PO 12/23/19 16:00 12/23/19 16:01 DC 12/23/19 16:14 Current Medications Medications (Trade) Dose Ordered Sig/Isaac Route PRN Reason Start Time Stop Time Status Last Admin Dose Admin Acetaminophen (Tylenol) 1,000 mg 1X ONCE PO 12/23/19 16:00 12/23/19 16:01 DC 12/23/19 16:14 Vital Signs: Current Medications Medications (Trade) Dose Ordered Sig/Isaac Route PRN Reason Start Time Stop Time Status Last Admin Dose Admin Acetaminophen (Tylenol) 1,000 mg 1X ONCE PO 12/23/19 16:00 12/23/19 16:01 DC 12/23/19 16:14 EKG: EKG: EKG was done at 1243, rate of 69 BPM, NO STEMI. Radiology/Procedures: Radiology/Procedures: [facility] [address] [place] [address] IMAGING REPORT Signed PATIENT: AIDA COWARTOUNT: [id number] : 1935 LOCATION: ER AGE: 84 SEX: M EXAM STATUS: REG ER ORD. PHYSICIAN: DENIA RUFF DO REASON: FELL, HEAD AND NECK PAIN PROCEDURE: CT HEAD AND CERVICAL SPINE WO EXAM: CT HEAD WITHOUT IV CONTRAST CLINICAL HISTORY: Reason: FELL, HEAD AND NECK PAIN / Spl. Instructions: / History: COMPARISON: None. TECHNIQUE: Routine CT of the head without contrast. Soft tissues and bone windows were reviewed. PQRS compliance statement - One or more of the following individualized dose reduction techniques were utilized for this study: 1. Automated exposure control 2. Adjustment of the mA and/or kV according to patient size 3. Use of iterative reconstruction technique FINDINGS: There is no evidence of hemorrhage, mass or extra-axial fluid collection. Davis-white differentiation is maintained with no evidence of edema. Subcortical, periventricular white matter hypoattenuation likely changes of chronic small vessel disease. Focal lucency left basal ganglia likely age indeterminate lacunar infarct or prominent perivascular space. There is no mass effect or shift of the intracranial structures. The ventricles, basilar cisterns and cortical sulci are normal in size and configuration for the patients stated age. The cerebellum and brainstem are unremarkable. The calvarium demonstrates no evidence of fracture or focal lesion. There is normal aeration of the visualized paranasal sinuses and mastoid air cells. The visualized portions of the orbits are normal. IMPRESSION: 1. No evidence for acute intracranial process. 2. Atherosclerotic calcifications of the intracranial internal carotid and vertebral arteries is seen. EXAM: CT CERVICAL SPINE WITHOUT IV CONTRAST CLINICAL HISTORY: Reason: FELL, HEAD AND NECK PAIN / Spl. Instructions: / History: COMPARISON: PET CT 09/06/2019., CT sinus C-spine 06/14/2018 TECHNIQUE: Helical CT of the cervical spine was performed. Axial, coronal and sagittal reformatted images were also performed. PQRS compliance statement - One or more of the following individualized dose reduction techniques were utilized for this study: 1. Automated exposure control 2. Adjustment of the mA and/or kV according to patient size 3. Use of iterative reconstruction technique FINDINGS: There is mild height loss of the C6 and T1 vertebral body, similar to prior PET scan. Marked osteopenia. There are no degenerative changes are seen. Moderate C3-4, mild C4-5, C5-6 and C6-7 as well as C7-T1 disc height loss. Anterior posterior endplate osteophytes C3-4, C5-6 and C7-T1. No spondylolisthesis. Underlying lucent lesions are suspected within the C6, T1, T2 and be further assessed by MRI. IMPRESSION: 1. Height loss of C6 and T1 vertebral bodies, grossly stable. Otherwise vertebral body heights are preserved. 2. Within the constraints of marked osteopenia, no definite acute fracture. 3. Underlying lucency is seen within several vertebral bodies, differential includes aggressive osteopenia as well as metastasis/myeloma. If further imaging is clinically required, MRI is recommended. Electronically signed by: Jesus Alexander MD (12/23/2019 1:53 PM) [email or web address] DICTATED and SIGNED BY: JESUS ALEXANDER MD DATE: 12/23/19 5154 [] [address] [address] IMAGING REPORT Signed PATIENT: AIDA COWARTOUNT: [id number] : 1935 LOCATION: ER AGE: 84 SEX: M EXAM STATUS: REG ER ORD. PHYSICIAN: DENIA RUFF DO REASON: FELL, LEFT HIP AND LEFT SHOULDER PAIN PROCEDURE: HIP LEFT 2V WITH PELVIS EXAM: AP pelvis, AP and lateral views left DATE: 12/23/2019 12:00 AM INDICATION: Reason: FELL, LEFT HIP AND LEFT SHOULDER PAIN / Spl. Instructions: / History: COMPARISON: No Prior FINDINGS: No evidence of acute fracture or dislocation. Decreased bone mineral density. Bilateral hip joint osteoarthritis with joint space narrowing and proliferative changes. Atherosclerotic vascular calcifications are seen. IMPRESSION: Within the constraints of osteopenia, no evidence for acute fracture or dislocation. If there is persistent clinical concern for fracture, CT or MRI is recommended. Electronically signed by: Jesus Alexander MD (12/23/2019 1:40 PM) [email or web address] DICTATED and SIGNED BY: JESUS ALEXANDER MD DATE: 12/23/[address] [address] IMAGING REPORT Signed PATIENT: AIDA COWARTOUNT: [id number] : 1935 LOCATION: ER AGE: 84 SEX: M EXAM STATUS: REG ER ORD. PHYSICIAN: DENIA RUFF DO REASON: FELL, LEFT HIP AND LEFT SHOULDER PAIN PROCEDURE: SHOULDER 2+V LEFT EXAM: 3 Views Left Shoulder DATE: 12/23/2019 12:44 PM INDICATION: Reason: FELL, LEFT HIP AND LEFT SHOULDER PAIN / Spl. Instructions: / History: COMPARISON: No Prior FINDINGS: There is no evidence for acute fracture or dislocation. AC joint is congruent. AC joint degenerative changes are seen. Glenohumeral joint degenerative changes are seen. Humeral head is not high riding. IMPRESSION: 1. No acute fracture or dislocation. 2. Left glenohumeral and acromioclavicular joint degenerative changes are seen. Electronically signed by: Jesus Alexander MD (12/23/2019 1:40 PM) [email or web address] DICTATED and SIGNED BY: JESUS ALEXANDER MD DATE: 12/23/19 1340 Course & Med Decision Making: Course & Med Decision Making Pertinent Labs and Imaging studies reviewed. (See chart for details) Patient had vasovagal response, orthostatus hypotension when he was standing to urinate. He was given IV FLUID. He felt much better now. Work up did not show any acute problem. Will discharge him home. Brooks Disclaimer: Brooks Disclaimer: This electronic medical record was generated, in whole or in part, using a voice recognition dictation system. Departure Departure Impression: Primary Impression: Head contusion Additional Impressions: Shoulder contusion Hip pain Disposition: HOME, SELF-CARE Condition: STABLE Referrals: TAWNY GUDINO MD (PCP) Justicifation of Admission Dx: Justifications for Admission: Justification of Admission Dx: N/A DENIA RUFF DO Dec 23, 2019 12:47
[2019-12-23 13:11] LABS: BASO % 0 % (0-3); EOS # 0.1 x10^3/uL (0.0-0.7); EOS % 2 % (0-3); HEMATOCRIT 32.7 % (39.0-53.0); HEMOGLOBIN 11.1 g/dL (13.0-17.5); LYMPH # 0.6 x10^3/uL (1.0-4.8); LYMPH % 18 % (24-48); MEAN CORPUSCULAR HEMOGLOBIN 36 pg (25-35); MEAN CORPUSCULAR HGB CONC 34 g/dL (31-37); MEAN CORPUSCULAR VOLUME 105 fL (79-100); MONO # 0.3 x10^3/uL (0.0-1.1); MONO % 10 % (0-9); NEUT # 2.3 x10^3/uL (1.8-7.7); NEUT % 70 % (31-73); PLATELET COUNT 70 x10^3/uL (140-400); RED BLOOD COUNT 3.11 x10^6/uL (4.30-5.70); RED CELL DISTRIBUTION WIDTH 14.7 % (11.5-14.5); WHITE BLOOD COUNT 3.2 x10^3/uL (4.0-11.0)
[2019-12-23 13:17] LABS: CALCIUM 8.7 mg/dL (8.5-10.1); CREATININE 0.8 mg/dL (0.7-1.3); GFR 92.5; POTASSIUM 4.8 mmol/L (3.5-5.1)
[2019-12-23 13:23] LABS: PROTHROMBIN TIME PATIENT 12.3 SEC (11.7-14.0)
[2019-12-23 13:29] LABS: ALBUMIN 3.2 g/dL (3.4-5.0); TOTAL BILIRUBIN 0.4 mg/dL (0.2-1.0); TOTAL PROTEIN 6.4 g/dL (6.4-8.2)
--- NOTE | 2019-12-23 13:43 | RAD ---
EXAM: AP pelvis, AP and lateral views left DATE: 12/23/2019 12:00 AM INDICATION: Reason: FELL, LEFT HIP AND LEFT SHOULDER PAIN / Spl. Instructions: / History: COMPARISON: No Prior FINDINGS: No evidence of acute fracture or dislocation. Decreased bone mineral density. Bilateral hip joint osteoarthritis with joint space narrowing and proliferative changes. Atherosclerotic vascular calcifications are seen. IMPRESSION: Within the constraints of osteopenia, no evidence for acute fracture or dislocation. If there is persistent clinical concern for fracture, CT or MRI is recommended. Electronically signed by: Jesus Nagel MD (12/23/2019 1:40 PM) [email or web address]
--- NOTE | 2019-12-23 13:43 | RAD ---
EXAM: 3 Views Left Shoulder DATE: 12/23/2019 12:44 PM INDICATION: Reason: FELL, LEFT HIP AND LEFT SHOULDER PAIN / Spl. Instructions: / History: COMPARISON: No Prior FINDINGS: There is no evidence for acute fracture or dislocation. AC joint is congruent. AC joint degenerative changes are seen. Glenohumeral joint degenerative changes are seen. Humeral head is not high riding. IMPRESSION: 1. No acute fracture or dislocation. 2. Left glenohumeral and acromioclavicular joint degenerative changes are seen. Electronically signed by: Jesus Nagel MD (12/23/2019 1:40 PM) [email or web address]
--- NOTE | 2019-12-23 13:56 | RAD ---
EXAM: CT HEAD WITHOUT IV CONTRAST CLINICAL HISTORY: Reason: FELL, HEAD AND NECK PAIN / Spl. Instructions: / History: COMPARISON: None. TECHNIQUE: Routine CT of the head without contrast. Soft tissues and bone windows were reviewed. PQRS compliance statement - One or more of the following individualized dose reduction techniques were utilized for this study: 1. Automated exposure control 2. Adjustment of the mA and/or kV according to patient size 3. Use of iterative reconstruction technique FINDINGS: There is no evidence of hemorrhage, mass or extra-axial fluid collection. Davis-white differentiation is maintained with no evidence of edema. Subcortical, periventricular white matter hypoattenuation likely changes of chronic small vessel disease. Focal lucency left basal ganglia likely age indeterminate lacunar infarct or prominent perivascular space. There is no mass effect or shift of the intracranial structures. The ventricles, basilar cisterns and cortical sulci are normal in size and configuration for the patients stated age. The cerebellum and brainstem are unremarkable. The calvarium demonstrates no evidence of fracture or focal lesion. There is normal aeration of the visualized paranasal sinuses and mastoid air cells. The visualized portions of the orbits are normal. IMPRESSION: 1. No evidence for acute intracranial process. 2. Atherosclerotic calcifications of the intracranial internal carotid and vertebral arteries is seen. EXAM: CT CERVICAL SPINE WITHOUT IV CONTRAST CLINICAL HISTORY: Reason: FELL, HEAD AND NECK PAIN / Spl. Instructions: / History: COMPARISON: PET CT 09/06/2019., CT sinus C-spine 06/14/2018 TECHNIQUE: Helical CT of the cervical spine was performed. Axial, coronal and sagittal reformatted images were also performed. PQRS compliance statement - One or more of the following individualized dose reduction techniques were utilized for this study: 1. Automated exposure control 2. Adjustment of the mA and/or kV according to patient size 3. Use of iterative reconstruction technique FINDINGS: There is mild height loss of the C6 and T1 vertebral body, similar to prior PET scan. Marked osteopenia. There are no degenerative changes are seen. Moderate C3-4, mild C4-5, C5-6 and C6-7 as well as C7-T1 disc height loss. Anterior posterior endplate osteophytes C3-4, C5-6 and C7-T1. No spondylolisthesis. Underlying lucent lesions are suspected within the C6, T1, T2 and be further assessed by MRI. IMPRESSION: 1. Height loss of C6 and T1 vertebral bodies, grossly stable. Otherwise vertebral body heights are preserved. 2. Within the constraints of marked osteopenia, no definite acute fracture. 3. Underlying lucency is seen within several vertebral bodies, differential includes aggressive osteopenia as well as metastasis/myeloma. If further imaging is clinically required, MRI is recommended. Electronically signed by: Jesus Nagel MD (12/23/2019 1:53 PM) [email or web address]
[2019-12-23 15:44] VITALS: BP 174/82
[2019-12-23] MEDS ORDERED: ACETAMINOPHEN 500 MG TABLET PO ONE (16:00)
== END 2019-12-23 16:36 | disposition home or self-care (01) ==
LOC: ER 12:26
DX: S00.93XA Contusion of unspecified part of head, initial encounter (principal); S40.012A Contusion of left shoulder, initial encounter; M25.552 Pain in left hip; I11.9 Hypertensive heart disease without heart failure; W18.39XA Other fall on same level, initial encounter; Y93.89 Activity, other specified; Y92.89 Other specified places as the place of occurrence of the external cause; Y99.8 Other external cause status
CPT/HCPCS: 36415; 70450; 72125; 73030; 73502; 80053; 83735; 84484; 85025; 85610; 85730; 93005; 99285-25

== ENCOUNTER → 2020-01-20 | Outpatient (CLI) | payer MEDICARE, OTHER ==
[2019-12-23 15:44] VITALS: BP 174/82
[~2020-01-20] MED LIST changes: +CALC-627 PO; -CALC1TAB75 PO
--- NOTE | 2020-01-21 13:43 | CARD ---
MR#: [id number] Date of Study: 01/20/2020 Ordering Physician: PAWAN COLBY, Referring Physician: PAWAN COLBY, Tech: Maritza Milligan APPROVED REPORT EXAM: Two-dimensional and M-mode echocardiogram with Doppler and color Doppler. Other Information Quality : AverageHR: 75bpm INDICATION Myeloma 2D DIMENSIONS Left Atrium(2D)2.8 (1.6-4.0cm)IVSd0.9 (0.7-1.1cm) Aortic Root(2D)3.4 (2.0-3.7cm)LVDd5.9 (3.9-5.9cm) LVOT Diameter2.1 (1.8-2.4cm)PWd0.9 (0.7-1.1cm) LVDs3.6 (2.5-4.0cm)FS (%) 39.7 % SV121.0 mlLVEF(%)69.4 (>50%) Aortic Valve AoV Peak Carloz.158.4cm/sAoV VTI29.1cm AO Peak GR.10.0mmHgLVOT Peak Carloz.106.4cm/s AO Mean GR.7mmHgAVA (VMAX)2.24cm2 AI P 1/2 Puxr420vi Pulmonary Valve PV Peak Uaevyumx12.6cm/s Tricuspid Valve TR P. Eqmgzbuy700dn/sRAP [id number] TR Peak Gr.15hcMeQINP31uoLm LEFT VENTRICLE The Left Ventricle is borderline dilated. There is normal left ventricular wall thickness. The left v entricular systolic function is normal and the ejection fraction is within normal range. The Ejection Fraction is 50-55%. There is normal LV segmental wall motion. Transmitral Doppler flow pattern is Gr amos I-abnormal relaxation pattern. RIGHT VENTRICLE The right ventricle is normal size. There is normal right ventricular wall thickness. The right ventr icular systolic function is normal. ATRIA The left atrium size is normal. The right atrium size is normal. The interatrial septum is intact wit h no evidence for an atrial septal defect or patent foramen ovale as noted on 2-D or Doppler imaging. AORTIC VALVE The aortic valve is thickened but opens well. Doppler and Color Flow revealed trace aortic regurgitat ion. There is no significant aortic valvular stenosis. Calculated aortic valve area is 3.0 cm2 with m aximum pressure gradient of 10 mmHg and mean pressure gradient of 6 mmHg. MITRAL VALVE The mitral valve is normal in structure and function. There is no evidence of mitral valve prolapse. There is no mitral valve stenosis. Doppler and Color-flow revealed trace mitral regurgitation. TRICUSPID VALVE The tricuspid valve is normal in structure and function. Doppler and Color Flow revealed trace tricus pid regurgitation with an estimated PAP of 25 mmHg. There is no tricuspid valve stenosis. PULMONIC VALVE The pulmonic valve is not well visualized. Doppler and Color Flow revealed trace pulmonic valvular re gurgitation. GREAT VESSELS The aortic root is normal in size. The ascending aorta is normal in size. The IVC was not visualized. PERICARDIAL EFFUSION There is no evidence of significant pericardial effusion. Critical Notification Critical Value: No <Conclusion> The left ventricular systolic function is normal and the ejection fraction is within normal range. Th e Ejection Fraction is 50-55%. There is normal LV segmental wall motion. Signed by : Artie Lynn, Electronically Approved : 01/21/2020 13:42:50
== END ==
LOC: ECHO 08:45
PROVIDERS: ATTEND Internal Medicine Hematology & Oncology
DX: C90.00 Multiple myeloma not having achieved remission (principal)
CPT/HCPCS: 93306

== ENCOUNTER → 2020-06-17 | Outpatient (CLI) | payer MEDICARE, OTHER ==
--- NOTE | 2020-06-17 16:12 | RAD ---
EXAM: Left shoulder, 2 views. HISTORY: Fall. Pain. COMPARISON: None. FINDINGS: 2 views of left shoulder obtained. There is no acute fracture, dislocation or subluxation. There is mild degenerative spurring involving the acromioclavicular joint. There are suspected healed left rib fractures, not fully assessed on this exam. IMPRESSION: Mild left acromioclavicular osteoarthritis. Suspected healed left rib fractures. Electronically signed by: Amee Henderson MD (06/17/2020 4:10 PM) [id number]
--- NOTE | 2020-06-17 17:16 | RAD ---
Examination: 1. Chest PA lateral. 2. Pelvis and left hip 3 views. 3. Left ankle 3 views INDICATION: Chest wall pain, left hip pain after recent fall, left ankle pain after fall COMPARISON: Left hip x-rays 12/23/2019, left shoulder x-rays of 06/17/2020 FINDINGS: Upper normal heart size. No mediastinal widening or shift. Aortic calcifications. Moderate size hiatal hernia. No evidence of hilar adenopathy. Lungs clear on good inspiration. No pneumothorax or pleural effusion Posterior right rib fractures. CHEST: Unremarkable. No free air under the diaphragms. IMPRESSION: No acute cardiopulmonary process. PROCEDURE: XR EXAM OF ANKLE_LEFT 3V, XR BILATERAL HIP (WITH OR WITHOUT PELVIS) LEFT 2 VIEWS, XR CHEST 2V STUDY DATE: 06/17/2020 CLINICAL INDICATION / HISTORY: Reason: LEFT ANKLE PAIN FALL / Spl. Instructions: / History: . TECHNIQUE:Three views of the left hip were obtained. COMPARISON: 12/23/2019 FINDINGS: The osseous structures are normally mineralized. There is normal bony alignment present wit h the femoral heads well-seated within the acetabuli. There is no evidence of acute fracture or dislo cation identified. The overlying soft tissues show surgical clips projecting over the bilateral pubi c symphyses similar to prior but otherwise are grossly unremarkable. Incidental degenerative changes in the lumbar spine are redemonstrated. IMPRESSION: No evidence of a left hip fracture or dislocation. PROCEDURE: XR EXAM OF ANKLE_LEFT 3V, XR BILATERAL HIP (WITH OR WITHOUT PELVIS) LEFT 2 VIEWS, XR CHEST 2V STUDY DATE: 06/17/2020 CLINICAL INDICATION / HISTORY: Reason: LEFT ANKLE PAIN FALL / Spl. Instructions: / History: . TECHNIQUE: Left ankle 3 views. COMPARISON: None FINDINGS: The ankle mortise is approximated, and the talar dome is unremarkable. The joint space widt hs are maintained. No dislocation identified. There are ossific densities along the distal aspect of the medial malleolus that is suspicious for possible tiny avulsion fracture fragments.. There is mild diffuse soft tissue swelling. IMPRESSION: Left ankle swelling with ossific densities along the medial malleolus that could represent tiny avuls ion fracture fragments. Correlate with the clinical exam. Otherwise no fracture or malalignment. Inci dental calcaneal spur. Electronically signed by: Adin Dai MD (06/17/2020 5:13 PM) [id number]
== END ==
LOC: RAD 11:04
PROVIDERS: ATTEND Internal Medicine Hematology & Oncology
DX: C90.00 Multiple myeloma not having achieved remission (principal); M19.012 Primary osteoarthritis, left shoulder; K44.9 Diaphragmatic hernia without obstruction or gangrene; R07.9 Chest pain, unspecified; Z79.52 Long term (current) use of systemic steroids; Z92.29 Personal history of other drug therapy
CPT/HCPCS: 71046; 73030; 73502; 73610

== ENCOUNTER 2020-07-23 09:32 | Observation (INO) | payer MEDICARE, OTHER ==
[~2020-07-23] VITALS: Ht 177.8 cm; Wt 103.0 kg
[~2020-07-23 09:32] MED LIST changes: -ACYC800T PO; +ACYC800T88 PO; +CARB-183 PO; -CARB1TAB2 PO
--- NOTE | 2020-07-23 09:47 | PHYS DOC ---
Past Medical History Past Medical History: Cancer, Heart Disease, Hypertension, Other Additional Past Medical Histor: PROSTATE CA. 2008,PARKINSONS,MULTIPLE MYELOMA, GUILLAIN BARRE SYNDROME Past Surgical History: Other Additional Past Surgical Histo: BONE MARROW ASPIRATION, CARDIAC STENT Smoking Status: Former Smoker Alcohol Use: None Drug Use: None General Adult EDM: Chief Complaint: PRESYNCOPE HPI: HPI: This is a pleasant 84-year-old male presenting to the emergency department today with syncope/presyncope. He was on the toilet when he felt lightheaded dizzy after having a severe pain on his left flank. He fell about a week ago which has been causing him severe pain in his left flank since then. He reports having had a CT and an MRI which were unremarkable. His flank pain has now resolved and is feeling much better. Upon EMS arrival the patient's initial blood pressure was in the 70s systolic. No interventions were given in route and the patient's blood pressure came up to the 120s on arrival. Currently the patient is feeling much better and has no symptoms. Review of systems negative for chest pain shortness of breath. Positive for le ft-sided flank pain. Negative for headache. He did not hit his head. He denies vomiting fevers or chills. He denies facial droop, focal neurologic deficits, double vision. All other review of systems negative. ED course: 84-year-old male presenting with syncope/presyncope. EKG obtained and reviewed contemporaneously in real-time by myself. Shows no obvious P wave with a regular rhythm. ST segments congruent. Not suggestive of acute ischemia. Nonspecific T wave flattening in the inferior leads. CBC shows white blood cell count of 3.8. Hemoglobin 12.5. Platelet count of 120. CBC down to 3.8 from 4.6 on June 172020. Sodium is 150. We will give 1 L of LR. BUN 30. Troponin within normal limits. D-dimer elevated at 0.56. CT head and CT chest abdomen pelvis ordered. CT head unremarkable for acute intracranial findings. CT chest abdomen pelvis shows no central pulmonary embolism though limited evaluation. Multiple lytic lesions noted. Severe aortic and aortic branch atherosclerosis present. On reexamination patient continues to be asymptomatic. I spoke with Dr. Sullivan. Will admit the patient for telemetry and further monitoring and care. Review of Systems: Review of Systems: Constitutional: Denies fever or chills. [] Eyes: Denies change in visual acuity. [] HENT: Denies nasal congestion or sore throat. [] Respiratory: Denies cough or shortness of breath. [] Cardiovascular: Denies chest pain or edema. [] GI: Denies bloody stools[] : Denies dysuria. [] Musculoskeletal: Denies back pain or joint pain. [] Integument: Denies rash. [] Neurologic: Denies headache, focal weakness or sensory changes. [] Endocrine: Denies polyuria or polydipsia. [] Lymphatic: Denies swollen glands. [] Psychiatric: Denies depression or anxiety. [] Heart Score: C/O Chest Pain: No Risk Factors: Risk Factors: DM, Current or recent (<one month) smoker, HTN, HLP, family history of CAD, obesity. Risk Scores: Score 0 - 3: 2.5% MACE over next 6 weeks - Discharge Home Score 4 - 6: 20.3% MACE over next 6 weeks - Admit for Clinical Observation Score 7 - 10: 72.7% MACE over next 6 weeks - Early Invasive Strategies Allergies: Allergies: Allergies Coded Allergies Type Severity Reaction Last Updated Verified No Known Medication Allergies Allergy Unknown 09/09/19 Yes Physical Exam: PE: Constitutional: Well developed, well nourished, no acute distress, non-toxic appearance. [] HENT: Normocephalic, atraumatic, bilateral external ears normal, oropharynx moist, no oral exudates, nose normal. [] Eyes: PERRLA, EOMI, conjunctiva normal, no discharge. [] Neck: Normal range of motion, no tenderness, supple, no stridor. [] Cardiovascular:Heart rate regular rhythm, no murmur [] Lungs & Thorax: Bilateral breath sounds clear to auscultation [] Abdomen: Bowel sounds normal, soft, no tenderness, no masses, no pulsatile masses. [] No rebound tenderness or guarding. Negative McBurney's point. Negative Chu sign Skin: Warm, dry, no erythema, no rash. [] Back: No tenderness, no CVA tenderness. [] Extremities: No tenderness, no cyanosis, no clubbing, ROM intact, no edema. [] Neurologic: Mental status: Awake oriented and alert x3 Cranial nerves: Extraocular movements intact, eyebrows sander bilaterally, smile symmetric, uvula elevation nl, shoulder shrug intact bilaterally, tongue protrusion normal Clear speech. Normal [id number]-[id number]. Sensation: equal and normal in all extremities Strength: 5/5 in upper and lower extremities bilaterally Psychologic: Affect normal, judgement normal, mood normal. [] EKG: EKG: [] Radiology/Procedures: Radiology/Procedures: [] Course & Med Decision Making: Course & Med Decision Making Pertinent Labs and Imaging studies reviewed. (See chart for details) [] Dragon Disclaimer: Dragon Disclaimer: This electronic medical record was generated, in whole or in part, using a voice recognition dictation system. Departure Departure Impression: Primary Impression: Pre-syncope Disposition: ADMITTED INPATIENT Admitting Physician: Jorge Alberto Sullivan Condition: STABLE Referrals: JORGE ALBERTO SULLIVAN MD (PCP) ALEJANDRO PARRA MD Jul 23, 2020 09:47
[2020-07-23 09:56] LABS: BASO % 0 % (0-3); EOS % 1 % (0-3); HEMATOCRIT 37.1 % (39.0-53.0); HEMOGLOBIN 12.5 g/dL (13.0-17.5); LYMPH # 0.6 x10^3/uL (1.0-4.8); LYMPH % 15 % (24-48); MEAN CORPUSCULAR HEMOGLOBIN 36 pg (25-35); MEAN CORPUSCULAR HGB CONC 34 g/dL (31-37); MEAN CORPUSCULAR VOLUME 108 fL (79-100); MONO # 0.2 x10^3/uL (0.0-1.1); MONO % 5 % (0-9); NEUT % 79 % (31-73); PLATELET COUNT 120 x10^3/uL (140-400); RED BLOOD COUNT 3.42 x10^6/uL (4.30-5.70); RED CELL DISTRIBUTION WIDTH 14.5 % (11.5-14.5); WHITE BLOOD COUNT 3.8 x10^3/uL (4.0-11.0)
[2020-07-23 10:07] LABS: CALCIUM 9.4 mg/dL (8.5-10.1); CREATININE 1.2 mg/dL (0.7-1.3)
[2020-07-23 10:13] LABS: ALBUMIN 3.6 g/dL (3.4-5.0); ALBUMIN/GLOBULIN RATIO 1.2 (1.0-1.7); MAGNESIUM 1.9 mg/dL (1.8-2.4); TOTAL BILIRUBIN 0.6 mg/dL (0.2-1.0); TOTAL PROTEIN 6.5 g/dL (6.4-8.2)
[2020-07-23] MEDS ORDERED: CONTRAST GIVEN. MC PRN (10:30)
[2020-07-23] MEDS ORDERED: IOHEXOL 350 MG/ML 100 ML VIAL. IV ONE (10:30)
[2020-07-23] MEDS ORDERED: IV RINGERS,LACTATED 500ML 500 ML IV ONE (11:00)
--- NOTE | 2020-07-23 11:14 | RAD ---
EXAM: Head CT without contrast. HISTORY: Syncope. TECHNIQUE: Computed tomographic images of the head were obtained without contrast. *One or more of the following individualized dose reduction techniques were utilized for this examina tion: 1. Automated exposure control. 2. Adjustment of the mA and/or kV according to patient size. 3. Use of iterative reconstruction technique. COMPARISON: 06/17/2020. FINDINGS: There is no acute or subacute extra-axial or intraparenchymal hemorrhage. There is no mass effect or midline shift. There is no hydrocephalus. There are areas of decreased attenuation within the cerebral white matter, nonspecific and likely rel ated to chronic small vessel disease. There is cerebral atrophy with compensatory enlargement of the ventricles. There are small chronic lacunar infarcts within the left basal ganglia and thalamus. No orbital lesion is seen. There is a left laura bullosa. The mastoid air cells are clear. There are advanced degenerative changes involving the proximal cervical spine. No suspicious calvarial lesion is seen. IMPRESSION: 1. No acute intracranial finding. Note is made that MRI is more sensitive for acute infarction. 2. Bilateral cerebral white matter changes, likely due to chronic small vessel disease. 3. Cerebral atrophy with compensatory enlargement of the ventricles. The ventricles are not greater t cui expected for cerebral volume to suggest normal pressure hydrocephalus. 4. Chronic lacunar infarcts within the left basal ganglia and thalamus. Electronically signed by: Amee Henderson MD (07/23/2020 11:12 AM) [id number]
--- NOTE | 2020-07-23 11:35 | RAD ---
EXAM: CT angiography of the chest, abdomen and pelvis with intravenous contrast. HISTORY: Pain. Multiple myeloma. TECHNIQUE: Computed tomographic images of the chest, abdomen and pelvis were obtained following the a dministration of intravenous contrast according to angiography protocol. Multiplanar reformatting was performed and three dimensional maximum intensity projection images were obtained. *One or more of the following individualized dose reduction techniques were utilized for this examina tion: 1. Automated exposure control. 2. Adjustment of the mA and/or kV according to patient size. 3. Use of iterative reconstruction technique. COMPARISON: 09/06/2019. FINDINGS: Chest: Evaluation for pulmonary emboli is significantly limited due to respiratory motion. No central embolism is seen. However, the possibility of a segmental or subsegmental pulmonary emboli sm is not excluded on this exam. There is no aortic dissection. There is mild cardiomegaly. There is heavily calcified atherosclerotic plaque involving the coronary arteries. There is no mediastinal or hilar lymphadenopathy. There is a large hiatal hernia. There is no infiltrate or pleural effusion. Th ere is no pneumothorax. There is left greater than right basilar atelectasis. There is a mixed lytic and sclerotic lesion within the posterior aspect of T7. No associated pathologic fracture is seen. Th ere is a moderate chronic appearing compression fracture of T1. There are few lytic lesions within th e vertebral column, primarily at T2 and T12. This is superimposed on bone demineralization. There is multilevel endplate remodeling. There is mild central canal stenosis at T10-T11. There are healed rig ht rib fractures. Abdomen and pelvis: No hepatic lesion is seen. The gallbladder, pancreas, stomach, spleen and adrenal glands are unremarkable. There are multiple bilateral renal cysts, the largest of which is seen on t he right measuring 8.1 cm. These are simple in appearance. There is a 2 mm nonobstructing left renal stone. There is no hydronephrosis. There is no evidence of bowel obstruction. There is distal colonic diverticulosis. There is no eviden ce of diverticulitis. The bladder is unremarkable. There are metallic fiducials within the pelvis adj acent to the prostate. There is a normal caliber abdominal aorta. There is heavily calcified atherosc lerotic plaque involving the aorta and main aortic branch vessels. No dissection is seen. There are mixed lytic and sclerotic osseous lesions within the vertebral column, the largest of which is seen within L5 and is associated with a moderate chronic compression fracture. There is multileve l degenerative change throughout the lumbar spine. There is central canal stenosis primarily at L3-L4 and L4-L5. There is sclerosis within the sacrococcygeal junction likely due to additional metastasis . IMPRESSION: 1. Significantly limited evaluation for pulmonary vessels due to respiratory motion. No central embol ism is seen. The possibility of a distal embolism is not excluded. There is no alternative acute thor acic finding or acute finding involving the abdomen or pelvis. 2. Multiple lytic, sclerotic and mixed lytic-sclerotic osseous lesions likely due to accommodation of active and treated multiple myeloma lesions. No acute pathologic fracture is seen. This is similar c ompared to the CT portion of the PET/CT dated 09/06/2019, allowing for differences in imaging technique . 3. Colonic diverticulosis. 4. Large hiatal hernia. 5. Multiple simple appearing renal cysts. Follow-up is not routinely performed for simple cysts. Ther e is also a suspected nonobstructing left renal stone. 6. Severe aortic and aortic branch vessel atherosclerosis. Electronically signed by: Amee Henderson MD (07/23/2020 11:32 AM) [id number]
[2020-07-23] MEDS ORDERED: ACETAMINOPHEN 325 MG TABLET. PO PRN (15:45)
[2020-07-23] MEDS ORDERED: IV NORMAL SALINE 1000ML BAG 1,000 ML IV SCH (16:30)
[2020-07-23 16:45] VITALS: BP 190/100
[2020-07-23] MEDS ORDERED: FERR325T72 PO (17:02)
[2020-07-23 17:15] VITALS: BP 187/96
[2020-07-23] MEDS ORDERED: ACYC200C84 PO (17:53)
[2020-07-23] MEDS ORDERED: DOCUSATE SODIUM 100 MG CAPSULE. PO PRN (18:00)
--- NOTE | 2020-07-23 18:15 | NUR ---
Patient arrived around 1642 from the ER. at bedside. Patient was oriented to the unit and the hospital. Medications reviewed with the patient and his . BP elevated upon admission. Dr Sullivan aware and does not want to order any extra BP medications at this time. He also does not want to start him on fluids at this time as well. Leah paged around 1730 and Amparo paged around 1814. Patient now resting in bed. Will continue to monitor.
[2020-07-23] MEDS ORDERED: CARVEDILOL 3.125 MG TABLET. PO SCH (18:30)
[2020-07-23 19:15] VITALS: BP 129/74
[2020-07-23] MEDS: ACYCLOVIR 200 MG CAPSULE. PO SCH (20:46)
[2020-07-23] MEDS: CARBIDOPA/LEVODOPA 25/100MG TABLET PO SCH (20:47)
[2020-07-23] MEDS: BRIMONIDINE 0.2% OPHTH SOLUTION 5ML BOTTLE. OU SCH (20:50)
[2020-07-23] MEDS: TIMOLOL 0.5% OPHTH SOLUTION 5ML BOTTLE. OU SCH (20:50)
[2020-07-23] MEDS ORDERED: LATANOPROST 0.005% OPHTH SOLUTION 2.5ML BOTTLE. OU SCH (21:00)
[2020-07-23] MEDS ORDERED: SIMVASTATIN 20 MG TABLET PO SCH (21:00)
[2020-07-23] MEDS ORDERED: TAMSULOSIN 0.4 MG CAP.ER.24H. PO SCH (21:00)
[2020-07-23 23:11] VITALS: BP 137/73
[2020-07-24] VITALS (7 sets, daily range): BP systolic 94–175; BP diastolic 55–84
--- NOTE | 2020-07-24 06:26 | NUR ---
Ambulated to toilet w/ walker and SBA w/o difficulty. No c/o chest pain or SOA x 12 hours.
[2020-07-24] MEDS ORDERED: PANTOPRAZOLE 40 MG TABLET.DR. PO SCH (07:30)
[2020-07-24] MEDS ORDERED: POTASSIUM CHLORIDE 20 MEQ TABLET.ER. PO SCH (08:00)
--- NOTE | 2020-07-24 08:43 | PDOC ---
Provider Note Date of Service: DATE: 07/24/20 TIME: 08:42 Provider Note [id number] Justifications for Admission Other Justification TAWNY GUDINO MD Jul 24, 2020 08:43
[2020-07-24] MEDS ORDERED: CITALOPRAM 20 MG TABLET. PO SCH (09:00)
[2020-07-24] MEDS ORDERED: FERROUS SULFATE 325 MG TABLET. PO SCH (09:00)
[2020-07-24] MEDS ORDERED: MULTIVITAMIN with MINERAL TABLET. PO SCH (09:00)
[2020-07-24] MEDS ORDERED: OMEGA-3 FATTY ACIDS/FISH OIL 1,000 MG CAPSULE. PO SCH (09:00)
[2020-07-24] MEDS ORDERED: CALCIUM CARB/VIT D3 500/200 TABLET. PO SCH (09:00)
[2020-07-24] MEDS: CARBIDOPA/LEVODOPA 25/100MG TABLET PO SCH ×2 (09:00→14:16)
[2020-07-24] MEDS: ACYCLOVIR 200 MG CAPSULE. PO SCH (09:01)
[2020-07-24 09:02] LABS: BASO % 0 % (0-3); EOS % 1 % (0-3); HEMATOCRIT 35.3 % (39.0-53.0); HEMOGLOBIN 11.9 g/dL (13.0-17.5); LYMPH # 0.8 x10^3/uL (1.0-4.8); LYMPH % 19 % (24-48); MEAN CORPUSCULAR HEMOGLOBIN 36 pg (25-35); MEAN CORPUSCULAR HGB CONC 34 g/dL (31-37); MEAN CORPUSCULAR VOLUME 108 fL (79-100); MONO # 0.4 x10^3/uL (0.0-1.1); MONO % 8 % (0-9); NEUT # 3.2 x10^3/uL (1.8-7.7); NEUT % 72 % (31-73); PLATELET COUNT 115 x10^3/uL (140-400); RED BLOOD COUNT 3.27 x10^6/uL (4.30-5.70); RED CELL DISTRIBUTION WIDTH 13.8 % (11.5-14.5); WHITE BLOOD COUNT 4.5 x10^3/uL (4.0-11.0)
[2020-07-24] MEDS: BRIMONIDINE 0.2% OPHTH SOLUTION 5ML BOTTLE. OU SCH (09:02)
[2020-07-24] MEDS: TIMOLOL 0.5% OPHTH SOLUTION 5ML BOTTLE. OU SCH (09:02)
--- NOTE | 2020-07-24 09:05 | SSS ---
ADMIT DATE: 07/24/2020 23-HOUR SUMMARY The patient was admitted for discharged and dictated 07/24/2000. HOSPITAL SUMMARY: An 84-year-old white male who had some diarrhea at home and then while sitting in the kitchen, after that got lightheaded and weak and dizzy and was hypotensive and had a presyncopal episode. Since then, he has been feeling fine. His blood pressure has been labile and actually elevated at times. His hemoglobin and blood counts were normal except for sodium mildly elevated at 150 and MCV is 108 consistent with his known hematologic problem. Head CT and abdominal and pelvic CTA showed no significant abnormalities. He continues to eat today and will likely be discharged later today and followed as an outpatient. FINAL DIAGNOSIS: Vasovagal syncope. OPERATIONS, PROCEDURES, COMPLICATIONS: None. CONSULTATION: Dr. Lord. DISPOSITION: All home meds remain the same. ACTIVITY: As tolerated. FOLLOWUP: Office followup as scheduled. SHELL DANGELO: Dorinda TID: [id number]
[2020-07-24 09:08] LABS: ALBUMIN 3.2 g/dL (3.4-5.0); ALBUMIN/GLOBULIN RATIO 1.1 (1.0-1.7); CALCIUM 8.5 mg/dL (8.5-10.1); CREATININE 0.9 mg/dL (0.7-1.3); GFR 80.8; TOTAL BILIRUBIN 0.7 mg/dL (0.2-1.0); TOTAL PROTEIN 6.2 g/dL (6.4-8.2)
--- NOTE | 2020-07-24 09:26 | PDOC2 ---
TRISTEN TORO GROUP SALES MANAGER 07/24/20 0926: CARDIAC CONSULT DATE OF CONSULT Date of Consult DATE: 07/24/20 TIME: 09:00 REASON FOR CONSULT Reason for Consult: Syncope REFERRING PHYSICIAN Referring Physician: Zulay SOURCE Source: Caregiver (spouse), Chart review, Patient HISTORY OF PRESENT ILLNESS HISTORY OF PRESENT ILLNESS This is a pleasnt 84 yo male admitted for complains of passing out. Reports yesterday morning that he started having loose stools went to the bathroom then went back to the chair and had some bowel incontinence and went back to the bathroom and had another diarrhea and attended by his and suddenly he lost consciousness. No chest pain, but slightly SOA at that time. No complains of palpitations. His told me that he was unconscious <1 min. She called for help and EMS checked his SBP and it was in the 70s while on a the toilet. He did check his BP earlier prior to this event while laying down and his SBP was in the 180s. He had a fall about a month ago but involving losing his balance. Denies passing out prior to this event for a very long time. No prior hx of arrhythmia. No hx of VTE. 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, Parkinsons) GI: Diverticulosis, Hemorrhoids Heme/Onc: Anemia NOS, Cancer (MM, prostate CA with radiation and chemo) Hepatobiliary: No pertinent hx Psych: Anxiety Musculoskeletal: Osteoarthritis Rheumatologic: No pertinent hx Infectious disease: No pertinent hx ENT: Other (glaucoma) Renal/: No pertinent hx Endocrine: Diabetes Dermatology: No pertinent hx PAST SURGICAL HISTORY Past Surgical History: Tonsillectomy, Other (PCI/stent, vasectomy) FAMILY HISTORY Family History noncontributory SOCIAL HISTORY Smoke: No ALCOHOL: none Drugs: None Lives: with Family CURRENT MEDICATIONS CURRENT MEDICATIONS Current Medications Medications (Trade) Dose Ordered Sig/Isaac Route PRN Reason Start Time Stop Time Status Last Admin Dose Admin Iohexol (Omnipaque 350 Mg/ml) 75 ml 1X ONCE IV 07/23/20 10:30 07/23/20 10:31 DC 07/23/20 10:34 Ringer's Solution 500 ml @ 500 mls/hr 1X ONCE IV 07/23/20 11:00 07/23/20 11:59 DC 07/23/20 11:13 Acetaminophen (Tylenol) 650 mg QID PRN PO MILD PAIN / TEMP > 100.3'F 07/23/20 15:45 07/23/20 16:06 Carbidopa/Levodopa (Sinemet 25/100) 2 tab TID PO 07/23/20 21:00 07/23/20 20:47 Carvedilol (Coreg) 3.125 mg DAILYWSUP PO 07/23/20 18:30 07/23/20 18:36 Latanoprost (Xalatan) 1 drop QHS OU 07/23/20 21:00 07/23/20 20:46 Simvastatin (Zocor) 20 mg QHS PO 07/23/20 21:00 07/23/20 20:47 Tamsulosin HCl (Flomax) 0.4 mg HS PO 07/23/20 21:00 07/23/20 20:47 Acyclovir (Zovirax) 200 mg BID PO 07/23/20 21:00 07/23/20 20:46 ALLERGIES ALLERGIES: Coded Allergies: No Known Medication Allergies (Verified Allergy, Unknown, 09/09/19) ROS Review of System 14 point ROS evaluated with pertinent positives noted per HPI PHYSICAL EXAM General: Alert, Oriented X3, Cooperative, No acute distress HEENT: Atraumatic, Mucous membr. moist/pink Lungs: Other (diminished) Heart: Regular rate (SR), Normal S1, Normal S2, No murmurs Abdomen: Soft, No tenderness Extremities: No cyanosis, No edema Skin: No breakdown, No significant lesion Neuro: Normal speech, Sensation intact Psych/Mental Status: Mental status NL, Mood NL MUSCULOSKELETAL: Osteoarthritic changes both hands VITALS/I&O VITALS/I&O: Vital Signs Date Time Temp Pulse Resp B/P (MAP) Pulse Ox O2 Delivery O2 Flow Rate FiO2 07/24/20 03:23 98.7 62 16 133/70 (91) 95 Room Air 98.7 I & O 07/23/20 07/23/20 07/24/20 15:00 23:00 07:00 Intake Total 500 ml 120 ml 200 ml Output Total 325 ml Balance 500 ml 120 ml -125 ml LABS Lab: Laboratory Tests Test 07/23/20 09:43 White Blood Count 3.8 x10^3/uL (4.0-11.0) L Red Blood Count 3.42 x10^6/uL (4.30-5.70) L Hemoglobin 12.5 g/dL (13.0-17.5) L Hematocrit 37.1 % (39.0-53.0) L Mean Corpuscular Volume 108 fL (79-100) H Mean Corpuscular Hemoglobin 36 pg (25-35) H Mean Corpuscular Hemoglobin Concent 34 g/dL (31-37) Red Cell Distribution Width 14.5 % (11.5-14.5) Platelet Count 120 x10^3/uL (140-400) L Neutrophils (%) (Auto) 79 % (31-73) H Lymphocytes (%) (Auto) 15 % (24-48) L Monocytes (%) (Auto) 5 % (0-9) Eosinophils (%) (Auto) 1 % (0-3) Basophils (%) (Auto) 0 % (0-3) Neutrophils # (Auto) 3.0 x10^3/uL (1.8-7.7) Lymphocytes # (Auto) 0.6 x10^3/uL (1.0-4.8) L Monocytes # (Auto) 0.2 x10^3/uL (0.0-1.1) Eosinophils # (Auto) 0.0 x10^3/uL (0.0-0.7) Basophils # (Auto) 0.0 x10^3/uL (0.0-0.2) D-Dimer (Tonja) 0.56 ug/mlFEU (0.00-0.50) H Sodium Level 150 mmol/L (136-145) H Potassium Level 4.0 mmol/L (3.5-5.1) Chloride Level 109 mmol/L (98-107) H Carbon Dioxide Level 29 mmol/L (21-32) Anion Gap 12 (6-14) Blood Urea Nitrogen 30 mg/dL (8-26) H Creatinine 1.2 mg/dL (0.7-1.3) Estimated GFR (Cockcroft-Gault) 58.0 BUN/Creatinine Ratio 25 (6-20) H Glucose Level 197 mg/dL (70-99) H Calcium Level 9.4 mg/dL (8.5-10.1) Magnesium Level 1.9 mg/dL (1.8-2.4) Total Bilirubin 0.6 mg/dL (0.2-1.0) Aspartate Amino Transferase (AST) 19 U/L (15-37) Alanine Aminotransferase (ALT) 12 U/L (16-63) L Alkaline Phosphatase 53 U/L (46-116) Troponin I Quantitative < 0.017 ng/mL (0.000-0.055) Total Protein 6.5 g/dL (6.4-8.2) Albumin 3.6 g/dL (3.4-5.0) Albumin/Globulin Ratio 1.2 (1.0-1.7) Laboratory Tests 07/23/20 09:43 Laboratory Tests 07/23/20:43 ECHOCARDIOGRAM ECHOCARDIOGRAM LEFT VENTRICLE The Left Ventricle is borderline dilated. There is normal left ventricular wall thickness. The left ventricular systolic function is normal and the ejection fraction is within normal range. The Ejection Fraction is 50-55%. There is normal LV segmental wall motion. Transmitral Doppler flow pattern is Grade I- abnormal relaxation pattern. RIGHT VENTRICLE The right ventricle is normal size. There is normal right ventricular wall thickness. The right ventricular systolic function is normal. ATRIA The left atrium size is normal. The right atrium size is normal. The interatrial septum is intact with no evidence for an atrial septal defect or patent foramen ovale as noted on 2-D or Doppler imaging. AORTIC VALVE The aortic valve is thickened but opens well. Doppler and Color Flow revealed trace aortic regurgitation. There is no significant aortic valvular stenosis. Calculated aortic valve area is 3.0 cm2 with maximum pressure gradient of 10 mmHg and mean pressure gradient of 6 mmHg. MITRAL VALVE The mitral valve is normal in structure and function. There is no evidence of mitral valve prolapse. There is no mitral valve stenosis. Doppler and Color-flow revealed trace mitral regurgitation. TRICUSPID VALVE The tricuspid valve is normal in structure and function. Doppler and Color Flow revealed trace tricuspid regurgitation with an estimated PAP of 25 mmHg. There is no tricuspid valve stenosis. PULMONIC VALVE The pulmonic valve is not well visualized. Doppler and Color Flow revealed trace pulmonic valvular regurgitation. GREAT VESSELS The aortic root is normal in size. The ascending aorta is normal in size. The IVC was not visualized. PERICARDIAL EFFUSION There is no evidence of significant pericardial effusion. Critical Notification Critical Value: No <Conclusion> The left ventricular systolic function is normal and the ejection fraction is within normal range. The Ejection Fraction is 50-55%. There is normal LV segmental wall motion. DATE: 01/20/20 1443 HEART CATH HEART CATH Coronary Angiography The patient's coronary anatomy is right dominant. The left main coronary artery is a large size vessel with diffuse calcification noted throughout this vessel and without significant stenosis. The left main trifurcates to the left anterior descending, circumflex, and ramus. The left anterior descending artery is a large size vessel with mild-moderate diffused disease. There is a 50% stenosis in the proximal segment. and in the mid-segment is 50% The first diagonal branch is a medium size vessel with stenosis. There is a 50% stenosis in the proximal segment. The second diagonal branch is a small size vessel with intimal irregularities and without significant stenosis. The third diagonal branch is a small size vessel with intimal irregularities and without significant stenosis. The circumflex artery is a medium size vessel with mild diffused disease. There is a 60% stenosis in the distal segment. The first obtuse marginal branch is a medium size vessel with intimal irregularities and without significant stenosis. The second obtuse marginal branch is a small size vessel with intimal irregularities and without significant stenosis. The third obtuse marginal branch is a small size vessel free of disease. The ramus intermedius artery is a medium size vessel with intimal irregularities and without significant stenosis. The right coronary artery is a large size vessel with diffuse calcification noted throughout this vessel and without significant stenosis. The right posterior descending artery is a medium size vessel with intimal irregularities and without significant stenosis. The right posterolateral branch is a small size vessel with intimal irregularities and without significant stenosis. Left Ventriculography The left ventricle is dilated in size with decreased contractility. The left ventricular ejection fraction is estimated to be 28%. The left ventricular end diastolic pressure is 16 mmHg. There was no gradient across the aortic valve upon pullback. There is global hypokinesis of the LV Conclusion This pt has mild diffuse calcific CAD with an advanced dilated cardiomyopathy that may be nonischemic. In view of the coronary anatomy I do not think that the chest pain is angina. Recommend medical treatment. Recommendations Medical Therapy DATE: 06/20/171911 ASSESSMENT/PLAN ASSESSMENT/PLAN 1. Syncope: due to orthostasis and likely vasovagal episode induced by diarrhea 2. 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 Parkinsons 4. Hx of MM and Prostate CA 5. Pancytopenia 6. CAD: reported past stent, clinically stable 7. HTN: controlled currently 8. Chronic diastolic CHF: compensated 9. HLP 10. Diarrhea: none further, notable for diverticulosis and large hiatal hernia per CT. Per PCP 11 Prerenal azotemia with hypernatremia: due to volume loss also contributing to hypotension 12. DM2: no coverage, defer to PCP 13. Hx of thrombocytopenia: PLT at 120 Recommendations 1. IVF received in ED. Recheck BMP. Stop lasix. 2. Check UA, TSH and will obtain orthostatic readings. If this is positive then will start mechanical compressions, discussed with RN 3. He takes x1 low dose coreg at [facility] which could potentially result to rebound HTN. Will monitor BP trend will adjust BP coverage pending BP trend 4. Secondary prevention measures. No ASA noted will placed on baby ECASA 5. Would like to f/u in our office will set up appointment. On September 02 at 1030 RYAN BUNCH MD 07/24/20 1616: CARDIAC CONSULT ASSESSMENT/PLAN ASSESSMENT/PLAN Patient seen and examined. Agree with CLIENT RELATIONSHIP MANAGER's assessment and plan. Syncope most likely secondary to combination of orthostasis from dehydration and vasovagal etiology Continue intravenous hydration CAD status clinically stable Chronic diastolic heart failure clinically well compensated We will consider outpatient event monitor Thank you for your consultation TRISTEN TORO APRN Jul 24, 2020 09:26 RYAN BUNCH MD Jul 24, 2020 16:16
--- NOTE | 2020-07-24 09:57 | PDOC2 ---
NEUROLOGY CONSULT Date of Service DOS: DATE: 07/24/20 TIME: 09:48 Reason for Consult Reason for Consult: Syncope Referring Physician Referring Physician: Dr. Sullivan Source Source: Caregiver (), Chart review, Patient History of Present Illness History of Present Illness The patient is an 84-year-old right-handed male who had 2 bouts of diarrhea, the second of which was incontinent, then he fainted. He felt lightheaded and dizzy. He had pain in the left flank. He fell a week ago and has had some pain there. Emergency medical services found blood pressure of 70 systolic. There was no convulsive activity or prolonged postictal confusion. He feels fine today. I follow-up in the office for Parkinson's and he also had Guillain-Robbins in 2009. He has fainted before. Past Medical History Cardiovascular: CAD, HTN, [place], Syncope, Other (Cardiomyopathy) CENTRAL NERVOUS SYSTEM: Other (Parkinson's, Guillain-Robbins, chronic tension headache) Heme/Onc: Other (Multiple myeloma) Psych: Depression ENT: Other (Glaucoma) Renal/: Benign prostatic enlarg., Prostate Ca. Endocrine: Diabetes (Prediabetes) Past Surgical History Past Surgical History: No pertinent history Family History Family History: No pertinent hx Social History Social History , no alcohol or tobacco Current Medications Current Medications Current Medications Iohexol (Omnipaque 350 Mg/ml) 75 ml 1X ONCE IV Last administered on 07/23/20at 10:34; Start 07/23/20 at 10:30; Stop 07/23/20 at 10:31; Status DC Info (CONTRAST GIVEN -- Rx MONITORING) 1 each PRN DAILY PRN MC SEE COMMENTS; Start 07/23/20 at 10:30; Stop 07/25/20 at 10:29 Ringer's Solution 500 ml @ 500 mls/hr 1X ONCE IV Last administered on 07/23/20at 11:13; Start 07/23/20 at 11:00; Stop 07/23/20 at 11:59; Status DC Acetaminophen (Tylenol) 650 mg QID PRN PO MILD PAIN / TEMP > 100.3'F Last administered on 07/23/20at 16:06; Start 07/23/20 at 15:45 Sodium Chloride 1,000 ml @ 100 mls/hr Q10H IV ; Start 07/23/20 at 16:30; Stop 07/23/20 at 20:29; Status DC Carbidopa/Levodopa (Sinemet 25/100) 2 tab TID PO Last administered on 07/24/20 09:00; Start 07/23/20 at 21:00 Carvedilol (Coreg) 3.125 mg DAILYWSUP PO Last administered on 07/23/20 18:36; Start 07/23/20 at 18:30 Citalopram Hydrobromide (CeleXA) 20 mg DAILY PO Last administered on 07/24/20 09:01; Start 07/24/20 at 09:00 Docusate Sodium (Colace) 100 mg PRN DAILY PRN PO CONSTIPATION; Start 07/23/20 at 18:00 Ferrous Sulfate (Feosol) 325 mg DAILY PO Last administered on 07/24/20 09:01; Start 07/24/20 at 09:00 Furosemide (Lasix) 40 mg QMWF PO ; Start 07/24/20 at 16:00 Latanoprost (Xalatan) 1 drop QHS OU Last administered on 07/23/20 20:46; Start 07/23/20 at 21:00 Fish Oil (Fish Oil) 1,000 mg DAILY PO Last administered on 07/24/20 09:01; Start 07/24/20 at 09:00 Potassium Chloride (Klor-Con) 20 meq DAILYWBKFT PO Last administered on 07/24/20 09:02; Start 07/24/20 at 08:00 Simvastatin (Zocor) 20 mg QHS PO Last administered on 07/23/20 20:47; Start 07/23/20 at 21:00 Tamsulosin HCl (Flomax) 0.4 mg HS PO Last administered on 07/23/20 20:47; Start 07/23/20 at 21:00 Brimonidine Tartrate (Alphagan) 1 drop BID OU Last administered on 07/24/20 09:02; Start 07/23/20 at 21:00 Calcium/Vitamin D (Oscal D 500mg/ 200uts) 1 tab DAILY PO Last administered on 07/24/20 09:00; Start 07/24/20 at 09:00 Multivitamins (Thera M Plus) 1 tab DAILY PO Last administered on 4/23/21at 09:00; Start 07/24/20 at 09:00 Timolol Maleate (Timoptic 0.5% Ophth) 1 drop BID OU Last administered on 07/24/20at 09:02; Start 07/23/20 at 21:00 Pantoprazole Sodium (Protonix) 40 mg DAILYAC PO Last administered on 07/24/20at 09:01; Start 07/24/20 at 07:30 Acyclovir (Zovirax) 200 mg BID PO Last administered on 07/24/20at 09:01; Start 07/23/20 at 21:00 Active Scripts Active Tramadol Hcl 50 Mg Tablet 50 Mg PO Q6HRS PRN 3 Days [Pantoprazole] 40 MG Tablet.dr 40 Mg PO DAILY 30 Days Reported Acyclovir 200 Mg Capsule 1 Cap PO BID Feosol (Ferrous Sulfate) 325 Mg Tablet 1 Tab PO DAILY 30 Days Fish Oil 1,000 Mg Capsule (Angier-3 Fatty Acids/Fish Oil) 1 Each Capsule 1 Each PO DAILY Sinemet 25-100 Mg Tablet (Carbidopa/Levodopa) 1 Each Tablet 2 Tab PO TID Latanoprost 2.5 Ml Drops 1 Drop EACHEYE QHS Docusate Sodium 100 Mg Capsule 1 Cap PO DAILY PRN Potassium Chloride (Potassium Chloride) 10 Meq Capsule.er 20 Meq PO DAILY Timoptic 0.5% Ocudose Drop (Timolol Maleate/Pf) 1 Each Droperette 1 Each OP BID Furosemide 40 Mg Tablet 40 Mg PO QMWF Flomax (Tamsulosin Hcl) 0.4 Mg Cap.er.24h 0.4 Mg PO HS Carvedilol (Carvedilol) 6.25 Mg Tablet 3.25 Mg PO DAILYWSUP Calcium 600 + Vit D 200 Tablet (Calcium Carbonate/Vitamin D3) 1 Each Tablet 1 Each PO DAILY Daily Multiple Vitamin (Multivitamin) 1 Each Tablet 1 Each PO DAILY Alphagan P (Brimonidine Tartrate) 5 Ml Drops 1 Drop EACHEYE BID Citalopram Hbr (Citalopram Hydrobromide) 20 Mg Tablet 20 Mg PO DAILY Simvastatin 20 Mg Tablet 20 Mg PO DAILY Allergies Allergies: Coded Allergies: No Known Medication Allergies (Verified Allergy, Unknown, 09/09/19) ROS Review of System Negative for fever, chills, weight loss, shortness of breath, chest pain, indigestion, hematochezia, melena, and dysuria. Full 14-point review of systems is negative. Physical Exam Physical Examination General: Well-developed, well-nourished white male in no acute distress HEENT: Normocephalic andatraumatic. Temporal arteriespulsatile and nontender. Neck: Supple without bruit, no meningismus Musculoskeletal: Stability:see neurologic. Gait exam:see neurologic. Tone:see neurologic.Strength:see neurologic. Neurological: Mental Status:intact, orientation, memory, attention span/concentration, language, fund of knowledge normal. Cranial Nerves:Pupils equal and reactive to light, extraocular movements areintact, visual young are full to confrontation. Facial sensation is normal. There is no facial asymmetry. Vestibulo-ocular reflex is intact. Palate elevates and tongue protrudes in midline. All other cranial related problems are negative except as mentioned before.Reflexes:0+ and symmetric with flexor plantar responses. Motor:4/5 strength with normal tone and bulk. Coordination:Finger-nose finger and [id number] testing are normal. Rapid alternating movements and fine finger movements are intact. Slight rest tremor. Masked fascies, bradykinesia, cogwheel rigidity. Gait:Not tested, usually uses a roller-walker. Sensory:Stocking loss. Vitals VITALS Vital Signs Date Time Temp Pulse Resp B/P (MAP) Pulse Ox O2 Delivery O2 Flow Rate FiO2 07/24/20 07:00 98.4 61 16 175/84 (114) 96 Room Air 98.4 Labs Labs Laboratory Tests Test 07/23/20 09:43 07/24/20 07:45 White Blood Count 3.8 x10^3/uL (4.0-11.0) 4.5 x10^3/uL (4.0-11.0) Red Blood Count 3.42 x10^6/uL (4.30-5.70) 3.27 x10^6/uL (4.30-5.70) Hemoglobin 12.5 g/dL (13.0-17.5) 11.9 g/dL (13.0-17.5) Hematocrit 37.1 % (39.0-53.0) 35.3 % (39.0-53.0) Mean Corpuscular Volume 108 fL (79-100) 108 fL (79-100) Mean Corpuscular Hemoglobin 36 pg (25-35) 36 pg (25-35) Mean Corpuscular Hemoglobin Concent 34 g/dL (31-37) 34 g/dL (31-37) Red Cell Distribution Width 14.5 % (11.5-14.5) 13.8 % (11.5-14.5) Platelet Count 120 x10^3/uL (140-400) 115 x10^3/uL (140-400) Neutrophils (%) (Auto) 79 % (31-73) 72 % (31-73) Lymphocytes (%) (Auto) 15 % (24-48) 19 % (24-48) Monocytes (%) (Auto) 5 % (0-9) 8 % (0-9) Eosinophils (%) (Auto) 1 % (0-3) 1 % (0-3) Basophils (%) (Auto) 0 % (0-3) 0 % (0-3) Neutrophils # (Auto) 3.0 x10^3/uL (1.8-7.7) 3.2 x10^3/uL (1.8-7.7) Lymphocytes # (Auto) 0.6 x10^3/uL (1.0-4.8) 0.8 x10^3/uL (1.0-4.8) Monocytes # (Auto) 0.2 x10^3/uL (0.0-1.1) 0.4 x10^3/uL (0.0-1.1) Eosinophils # (Auto) 0.0 x10^3/uL (0.0-0.7) 0.0 x10^3/uL (0.0-0.7) Basophils # (Auto) 0.0 x10^3/uL (0.0-0.2) 0.0 x10^3/uL (0.0-0.2) D-Dimer (Tonja) 0.56 ug/mlFEU (0.00-0.50) Sodium Level 150 mmol/L (136-145) 145 mmol/L (136-145) Potassium Level 4.0 mmol/L (3.5-5.1) 4.0 mmol/L (3.5-5.1) Chloride Level 109 mmol/L (98-107) 107 mmol/L (98-107) Carbon Dioxide Level 29 mmol/L (21-32) 30 mmol/L (21-32) Anion Gap 12 (6-14) 8 (6-14) Blood Urea Nitrogen 30 mg/dL (8-26) 25 mg/dL (8-26) Creatinine 1.2 mg/dL (0.7-1.3) 0.9 mg/dL (0.7-1.3) Estimated GFR (Cockcroft-Gault) 58.0 80.8 BUN/Creatinine Ratio 25 (6-20) 28 (6-20) Glucose Level 197 mg/dL (70-99) 85 mg/dL (70-99) Calcium Level 9.4 mg/dL (8.5-10.1) 8.5 mg/dL (8.5-10.1) Magnesium Level 1.9 mg/dL (1.8-2.4) Total Bilirubin 0.6 mg/dL (0.2-1.0) 0.7 mg/dL (0.2-1.0) Aspartate Amino Transf (AST/SGOT) 19 U/L (15-37) 20 U/L (15-37) Alanine Aminotransferase (ALT/SGPT) 12 U/L (16-63) 9 U/L (16-63) Alkaline Phosphatase 53 U/L (46-116) 43 U/L (46-116) Troponin I Quantitative < 0.017 ng/mL (0.000-0.055) Total Protein 6.5 g/dL (6.4-8.2) 6.2 g/dL (6.4-8.2) Albumin 3.6 g/dL (3.4-5.0) 3.2 g/dL (3.4-5.0) Albumin/Globulin Ratio 1.2 (1.0-1.7) 1.1 (1.0-1.7) Thyroid Stimulating Hormone (TSH) 2.036 uIU/mL (0.358-3.74) Laboratory Tests Test 07/24/20 07:45 White Blood Count 4.5 x10^3/uL (4.0-11.0) Red Blood Count 3.27 x10^6/uL (4.30-5.70) Hemoglobin 11.9 g/dL (13.0-17.5) Hematocrit 35.3 % (39.0-53.0) Mean Corpuscular Volume 108 fL (79-100) Mean Corpuscular Hemoglobin 36 pg (25-35) Mean Corpuscular Hemoglobin Concent 34 g/dL (31-37) Red Cell Distribution Width 13.8 % (11.5-14.5) Platelet Count 115 x10^3/uL (140-400) Neutrophils (%) (Auto) 72 % (31-73) Lymphocytes (%) (Auto) 19 % (24-48) Monocytes (%) (Auto) 8 % (0-9) Eosinophils (%) (Auto) 1 % (0-3) Basophils (%) (Auto) 0 % (0-3) Neutrophils # (Auto) 3.2 x10^3/uL (1.8-7.7) Lymphocytes # (Auto) 0.8 x10^3/uL (1.0-4.8) Monocytes # (Auto) 0.4 x10^3/uL (0.0-1.1) Eosinophils # (Auto) 0.0 x10^3/uL (0.0-0.7) Basophils # (Auto) 0.0 x10^3/uL (0.0-0.2) Sodium Level 145 mmol/L (136-145) Potassium Level 4.0 mmol/L (3.5-5.1) Chloride Level 107 mmol/L (98-107) Carbon Dioxide Level 30 mmol/L (21-32) Anion Gap 8 (6-14) Blood Urea Nitrogen 25 mg/dL (8-26) Creatinine 0.9 mg/dL (0.7-1.3) Estimated GFR (Cockcroft-Gault) 80.8 BUN/Creatinine Ratio 28 (6-20) Glucose Level 85 mg/dL (70-99) Calcium Level 8.5 mg/dL (8.5-10.1) Total Bilirubin 0.7 mg/dL (0.2-1.0) Aspartate Amino Transf (AST/SGOT) 20 U/L (15-37) Alanine Aminotransferase (ALT/SGPT) 9 U/L (16-63) Alkaline Phosphatase 43 U/L (46-116) Total Protein 6.2 g/dL (6.4-8.2) Albumin 3.2 g/dL (3.4-5.0) Albumin/Globulin Ratio 1.1 (1.0-1.7) Thyroid Stimulating Hormone (TSH) 2.036 uIU/mL (0.358-3.74) Images Images Head CT without contrast. HISTORY: Syncope. TECHNIQUE: Computed tomographic images of the head were obtained without c ontrast. *One or more of the following individualized dose reduction techniques were utilized for this examination: 1. Automated exposure control. 2. Adjustment of the mA and/or kV according to patient size. 3. Use of iterative reconstruction technique. COMPARISON: 06/17/2020. FINDINGS: There is no acute or subacute extra-axial or intraparenchymal hemorrhage. There is no mass effect or midline shift. There is no hydrocephalus. There are areas of decreased attenuation within the cerebral white matter, nonspecific and likely related to chronic small vessel disease. There is cerebral atrophy with compensatory enlargement of the ventricles. There are small chronic lacunar infarcts within the left basal ganglia and thalamus. No orbital lesion is seen. There is a left laura bullosa. The mastoid air cells are clear. There are advanced degenerative changes involving the proximal cervical spine. No suspicious calvarial lesion is seen. IMPRESSION: 1. No acute intracranial finding. Note is made that MRI is more sensitive for acute infarction. 2. Bilateral cerebral white matter changes, likely due to chronic small vessel disease. 3. Cerebral atrophy with compensatory enlargement of the ventricles. The ventricles are not greater than expected for cerebral volume to suggest normal pressure hydrocephalus. 4. Chronic lacunar infarcts within the left basal ganglia and thalamus. MRI of the left hip without contrast, 06/19/2020 HISTORY: History of left hip pain COMPARISON: None TECHNIQUE: Multiplanar, multisequence MR imaging of the left hip was performed without contrast FINDINGS: The attachment of the hamstring tendon to the ischial tuberosity, attachment of the gluteal tendons to the greater trochanter, attachment of the iliopsoas tendon to the lesser trochanter and the attachment of the rectus femoris tendon to the anterior inferior iliac spine grossly appears intact. Mild increased signal identified in the gluteal tendons and the hamstring tendons likely tendinosis.The left femoral head is within the acetabulum. Moderate joint space loss left hip joint likely degenerative changes. Mild increased T2 signal identified in the subcutaneous region of the left proximal thigh laterally likely edema or cellulitis. Moderate degenerative the left hip joint. The evaluation of the labrum is difficult. IMPRESSION: 1. Mild increased T2 signal identified in the subcutaneous region of the left proximal thigh laterally likely edema or cellulitis. 2. Moderate degenerative changes left hip joint. 3. Mild tendinosis hamstring and gluteal tendons. Assessment/Plan Assessment/Plan Impression: Vasovagal syncope due to diarrhea, dehydration, flank pain. Parkinson's, stable History of Guillain-Robbins which may give him a heightened vasovagal response. Recommendations: Okay for discharge later today if he feels well. Follow-up with me as scheduled, 12/11/2020 Also discussed with patient's . Thank you for letting me help with the patient's care. DONI ASENCIO MD Jul 24, 2020 09:57
--- NOTE | 2020-07-24 12:40 | NUR ---
SS following for discharge planning. SS reviewed pt chart and discussed with pt RN. Pt is from home with spouse and is currently on room air. Pt has had services with [facility], ; fax [phone]. SS will continue to follow for discharge planning.
[2020-07-24 13:57] LABS: BILIRUBIN,URINE NEGATIVE (NEG); CLARITY,URINE CLEAR; COLOR,URINE YELLOW; NITRITE,URINE NEGATIVE (NEG); PROTEIN,URINE NEGATIVE (NEG-TRACE)
[2020-07-24 14:12] LABS: AMORPHOUS SEDIMENT,UR PRESENT /HPF; BACTERIA,URINE 0 /HPF (0-FEW); HYALINE CASTS, URINE MODERATE /HPF; RBC,URINE 0 /HPF (0-2); WBC,URINE 0 /HPF (0-4)
[2020-07-24] MEDS ORDERED: METOPROLOL SUCC 24HR ER 25 MG TAB.ER.24H. PO SCH (15:00)
[2020-07-24] MEDS ORDERED: FUROSEMIDE 40 MG TABLET. PO SCH (16:00)
[2020-07-24] MEDS ORDERED: METO-239 PO ×2 (17:39→17:41)
--- NOTE | 2020-07-24 19:23 | NUR ---
Discharge Note: AIDA COWART [address] Discharge instructions and discharge home medications reviewed with Patient and a copy given. All questions have been answered and understanding verbalized. The following instructions and handouts were given: syncope, hypotension, follow up, medications including new dose of metoprolol and stopping his coreg, he will talk to Dr. Sullivan about his lasix use. Discontinued lines and drains: IV removed, no lines present on discharge. Patient discharged to home. left by wheelchair to his 's private vehicle. Addendum: 07/24/20 at 1944 by OLAYINKA GARNER RN called metoprolol into [facility].
[2020-07-25 16:10] LABS: KAPPA FREE 244.9 mg/L (3.3-19.4); KAPPA LAMBDA RATIO 13.61 (0.26-1.65)
== END 2020-07-24 18:50 | disposition home or self-care (01) ==
LOC: ER 09:32 → INTOOBSV 12:24 → ED HOLD 12:24 → 2 SOUTH 15:43
PROVIDERS: ADMIT Family Medicine; ATTEND Family Medicine
DX: R55 Syncope and collapse (principal); G20 Parkinson's disease; I11.0 Hypertensive heart disease with heart failure; I50.32 Chronic diastolic (congestive) heart failure; I25.10 Atherosclerotic heart disease of native coronary artery without angina pectoris; I42.8 Other cardiomyopathies; K44.9 Diaphragmatic hernia without obstruction or gangrene; K57.90 Diverticulosis of intestine, part unspecified, without perforation or abscess without bleeding; E11.51 Type 2 diabetes mellitus with diabetic peripheral angiopathy without gangrene; D61.818 Other pancytopenia; E87.0 Hyperosmolality and hypernatremia; E86.0 Dehydration; E78.5 Hyperlipidemia, unspecified; L03.90 Cellulitis, unspecified; F41.9 Anxiety disorder, unspecified; D69.6 Thrombocytopenia, unspecified; M19.90 Unspecified osteoarthritis, unspecified site; H40.9 Unspecified glaucoma; Z85.46 Personal history of malignant neoplasm of prostate; Z95.1 Presence of aortocoronary bypass graft; Z87.891 Personal history of nicotine dependence; Z95.5 Presence of coronary angioplasty implant and graft; Z90.49 Acquired absence of other specified parts of digestive tract; W19.XXXA Unspecified fall, initial encounter; Y92.89 Other specified places as the place of occurrence of the external cause; Y93.89 Activity, other specified; Y99.8 Other external cause status
CPT/HCPCS: 36415; 70450; 71275; 74174; 80053; 81001; 83520; 83735; 84165; 84443; 84484; 85025; 85379; 93005; 99285; G0378; J7120; Q9967; 96360; G0379

== ENCOUNTER 2020-09-10 12:45 | Emergency (ER) | payer MEDICARE, OTHER ==
[~2020-09-10] VITALS: Ht 177.8 cm; Wt 87.2 kg
[~2020-09-10 12:45] MED LIST changes: +ACYC200C84 PO; +FERR325T72 PO; +METO-239 PO
[2020-09-10] MEDS ORDERED: ORPHENADRINE CITRATE 60 MG/2 ML VIAL. IM ONE (13:30)
--- NOTE | 2020-09-10 13:32 | RAD ---
EXAM: CT head and cervical spine without contrast INDICATION: Headache, neck pain status post fall COMPARISON: CT head 07/23/[address] head and cervical spine 06/17/2020 and 12/23/2019 TECHNIQUE: Axial CT imaging through the head and cervical spine without intravenous contrast. Sagitta l and coronal reformats were obtained. One or more of the following individualized dose reduction techniques were utilized for this examinat ion: 1. Automated exposure control 2. Adjustment of the mA and/or kV according to patient size 3. Use of iterative reconstruction technique. FINDINGS: CT head: The ventricles and sulci are moderately enlarged, reflecting age-related volume loss. There is a mild burden of periventricular and deep hypoattenuating white matter lesions. There are old small lacunar infarcts in the left basal ganglia, unchanged. vGrey-white matter differentiation is maintained. The re is no intracranial hemorrhage, acute infarct, or mass lesion. Basal cisterns are clear. The skull and scalp are intact. Paranasal sinuses and mastoid air cells are clear. Globes and orbits are intact.. CT cervical spine: No acute fracture. There are unchanged C6 and T1 compression fractures with up to 50 percent vertebra l body height loss of both vertebral bodies. No retropulsion of cortex. There is lucency in both vert ebral body suspicious for underlying lytic lesion. Lucency in the T2 and T3 vertebral bodies could al so represent underlying lytic lesions, or could be due to osteopenia. This is unchanged from 0. Alignment is normal. There is unchanged reversal of lordosis. Unchanged moderate to severe disc sp joy narrowing, greatest at C3-C4. There are bridging anterior osteophyte throughout the cervical spin e. Unchanged fusion of the right facets at C2-C3 and mild facet arthrosis elsewhere. Multilevel cami inal narrowing, greatest at 3 C4 and C5-C6. Prevertebral soft tissue is normal. There are calcifications in the arch and great vessels. Visualized portion of lung apices are clear. IMPRESSION: 1. No acute intracranial abnormality. 2. No acute osseous abnormality of the cervical spine. 3. Unchanged probable pathologic compression fractures of C6 and T1. Unchanged possible lytic lesions in the T2 and T3 vertebral bodies versus osteopenia. Electronically signed by: Nishi Painter MD (09/10/2020 1:29 PM) [id number]
--- NOTE | 2020-09-10 13:41 | RAD ---
EXAM: Left shoulder radiograph, left hip and pelvis radiograph 09/10/2020 1:03 PM CLINICAL INDICATION: Pain, fall COMPARISON: Left shoulder radiograph and left hip and pelvis radiograph 12/23/2019 TECHNIQUE: 3 views of the left shoulder, 3 views of the left hip and pelvis. FINDINGS: Left shoulder: No acute fracture. Alignment is normal. There is mild acromioclavicular degenerative j oint disease. The glenohumeral joint is maintained. Subacromial space is normal. Pelvis and left hip: No acute fracture. Alignment is normal. There is moderate degenerative joint dis ease of the hips. The pubic symphysis and sacroiliac joints are maintained. IMPRESSION: No acute osseous abnormality of the left shoulder or hip. Electronically signed by: Nishi Painter MD (09/10/2020 1:38 PM) [id number]
[2020-09-10] MEDS ORDERED: ORPH100T PO (13:44)
--- NOTE | 2020-09-10 13:47 | PHYS DOC ---
Past Medical History Past Medical History: Cancer, Heart Disease, Hypertension, Other Additional Past Medical Histor: PROSTATE CA,PARKINSONS,MULTIPLE MYELOMA,GUILLAIN BARRE SYNDROME Past Surgical History: Angioplasty, Other Additional Past Surgical Histo: BONE MARROW ASPIRATION, CARDIAC STENT Smoking Status: Never Smoker Alcohol Use: None Drug Use: None General Adult EDM: Chief Complaint: MECHANICAL FALL HPI: HPI: Patient is a 85 year old [f__sex] who presents with [] Review of Systems: Review of Systems: Constitutional: Denies fever or chills. [] Eyes: Denies change in visual acuity. [] HENT: Denies nasal congestion or sore throat. [] Respiratory: Denies cough or shortness of breath. [] Cardiovascular: Denies chest pain or edema. [] GI: Denies abdominal pain, nausea, vomiting, bloody stools or diarrhea. [] : Denies dysuria. [] Musculoskeletal: Denies back pain or joint pain. [] Integument: Denies rash. [] Neurologic: Denies headache, focal weakness or sensory changes. [] Endocrine: Denies polyuria or polydipsia. [] Lymphatic: Denies swollen glands. [] Psychiatric: Denies depression or anxiety. [] Heart Score: Risk Factors: Risk Factors: DM, Current or recent (<one month) smoker, HTN, HLP, family history of CAD, obesity. Risk Scores: Score 0 - 3: 2.5% MACE over next 6 weeks - Discharge Home Score 4 - 6: 20.3% MACE over next 6 weeks - Admit for Clinical Observation Score 7 - 10: 72.7% MACE over next 6 weeks - Early Invasive Strategies Current Medications: Current Medications Medications (Trade) Dose Ordered Sig/Isaac Start Time Stop Time Status Last Admin Dose Admin Orphenadrine Citrate (Norflex) 60 mg 1X ONCE 09/10/20 13:30 09/10/20 13:31 DC 09/10/20 13:27 60 MG Allergies: Allergies: Allergies Coded Allergies Type Severity Reaction Last Updated Verified No Known Medication Allergies Allergy Unknown 09/09/19 Yes Physical Exam: PE: Constitutional: Well developed, well nourished, no acute distress, non-toxic appearance. [] HENT: Normocephalic, atraumatic, bilateral external ears normal, oropharynx moist, no oral exudates, nose normal. [] Eyes: PERRLA, EOMI, conjunctiva normal, no discharge. [] Neck: Normal range of motion, no tenderness, supple, no stridor. [] Cardiovascular:Heart rate regular rhythm, no murmur [] Lungs & Thorax: Bilateral breath sounds clear to auscultation [] Abdomen: Bowel sounds normal, soft, no tenderness, no masses, no pulsatile masses. [] Skin: Warm, dry, no erythema, no rash. [] Back: No tenderness, no CVA tenderness. [] Extremities: No tenderness, no cyanosis, no clubbing, ROM intact, no edema. [] Neurologic: Alert and oriented X 3, normal motor function, normal sensory function, no focal deficits noted. [] Psychologic: Affect normal, judgement normal, mood normal. [] Current Patient Data: Vital Signs: Vital Signs Date Time Temp Pulse Resp B/P (MAP) Pulse Ox O2 Delivery O2 Flow Rate FiO2 09/10/20 12:57 98.0 63 18 139/71 (93) 99 Room Air 98.0 EKG: EKG: [] Radiology/Procedures: Radiology/Procedures: PROCEDURE: CT HEAD AND CERVICAL SPINE WO EXAM: CT head and cervical spine without contrast INDICATION: Headache, neck pain status post fall COMPARISON: CT head 07/23/[address] head and cervical spine 06/17/2020 and 12/23/2019 TECHNIQUE: Axial CT imaging through the head and cervical spine without intravenous contrast. Sagittal and coronal reformats were obtained. One or more of the following individualized dose reduction techniques were utilized for this examination: 1. Automated exposure control 2. Adjustment of the mA and/or kV according to patient size 3. Use of iterative reconstruction technique. FINDINGS: CT head: The ventricles and sulci are moderately enlarged, reflecting age-related volume loss. There is a mild burden of periventricular and deep hypoattenuating white matter lesions. There are old small lacunar infarcts in the left basal ganglia, unchanged. vGrey-white matter differentiation is maintained. There is no intracranial hemorrhage, acute infarct, or mass lesion. Basal cisterns are clear. The skull and scalp are intact. Paranasal sinuses and mastoid air cells are clear. Globes and orbits are intact.. CT cervical spine: No acute fracture. There are unchanged C6 and T1 compression fractures with up to 50 percent vertebral body height loss of both vertebral bodies. No retropulsion of cortex. There is lucency in both vertebral body suspicious for underlying lytic lesion. Lucency in the T2 and T3 vertebral bodies could also represent underlying lytic lesions, or could be due to osteopenia. This is unchanged from 12/23/2019. Alignment is normal. There is unchanged reversal of lordosis. Unchanged moderate to severe disc space narrowing, greatest at C3-C4. There are bridging anterior osteophyte throughout the cervical spine. Unchanged fusion of the right facets at C2-C3 and mild facet arthrosis elsewhere. Multi level foraminal narrowing, greatest at 3 C4 and C5-C6. Prevertebral soft tissue is normal. There are calcifications in the arch and great vessels. Visualized portion of lung apices are clear. IMPRESSION: 1. No acute intracranial abnormality. 2. No acute osseous abnormality of the cervical spine. 3. Unchanged probable pathologic compression fractures of C6 and T1. Unchanged possible lytic lesions in the T2 and T3 vertebral bodies versus osteopenia. Electronically signed by: Nishi Painter MD (09/10/2020 1:29 PM) [id number] PROCEDURE: SHOULDER 2+V LEFT & HIP LEFT + PELVIS EXAM: Left shoulder radiograph, left hip and pelvis radiograph 09/10/2020 1:03 PM CLINICAL INDICATION: Pain, fall COMPARISON: Left shoulder radiograph and left hip and pelvis radiograph 12/23/2019 TECHNIQUE: 3 views of the left shoulder, 3 views of the left hip and pelvis. FINDINGS: Left shoulder: No acute fracture. Alignment is normal. There is mild acromioclavicular degenerative joint disease. The glenohumeral joint is maintained. Subacromial space is normal. Pelvis and left hip: No acute fracture. Alignment is normal. There is moderate degenerative joint disease of the hips. The pubic symphysis and sacroiliac joints are maintained. IMPRESSION: No acute osseous abnormality of the left shoulder or hip. Electronically signed by: Nishi Painter MD (09/10/2020 1:38 PM) [id number] Course & Med Decision Making: Course & Med Decision Making Pertinent Labs and Imaging studies reviewed. (See chart for details) [] Dragkaushik Disclaimer: Dragon Disclaimer: This electronic medical record was generated, in whole or in part, using a voice recognition dictation system. Departure Departure Impression: Primary Impression: Fall from standing Qualified Codes: W19.XXXA - Unspecified fall, initial encounter Additional Impressions: Head contusion Qualified Codes: S00.03XA - Contusion of scalp, initial encounter Left shoulder strain Qualified Codes: S46.912A - Strain of unspecified muscle, fascia and tendon at shoulder and upper arm level, left arm, initial encounter Hip pain Disposition: HOME / SELF CARE / HOMELESS Condition: STABLE Referrals: TAWNY GUDINO MD (PCP) MEENA ZALDIVAR MD Patient Instructions: Facial or Scalp Contusion, [id number], Fall Prevention and Home Safety, [id number], Hip Pain, Shoulder Pain, [id number] Additional Instructions: ICE area of discomfort 20 min on then leave off next 20 mins. Repeat several times daily for next few days. Take over the counter Naproxen and/or Tylenol as needed for pain or discomfort. Scripts Orphenadrine Citrate (ORPHENADRINE CITRATE) 100 Mg Tablet.er 100 MG PO BID PRN for MUSCLE PAIN, #10 TAB Prov: YUE LA DO 09/10/20 YUE LA DO Sep 10, 2020 13:47
[2020-09-10 14:01] VITALS: BP 151/72
[2020-09-10] MEDS ORDERED: NAPROXEN 500 MG TABLET PO ONE (14:15)
== END 2020-09-10 14:37 | disposition home or self-care (01) ==
LOC: ER 12:45
DX: S46.912A Strain of unspecified muscle, fascia and tendon at shoulder and upper arm level, left arm, initial encounter (principal); S00.03XA Contusion of scalp, initial encounter; M54.2 Cervicalgia; M25.552 Pain in left hip; I11.9 Hypertensive heart disease without heart failure; M16.0 Bilateral primary osteoarthritis of hip; Z95.5 Presence of coronary angioplasty implant and graft; W18.39XA Other fall on same level, initial encounter; Y93.89 Activity, other specified; Y92.89 Other specified places as the place of occurrence of the external cause; Y99.8 Other external cause status
CPT/HCPCS: 70450; 72125; 73030; 73502; 96372; 99285; J2360

== ENCOUNTER → 2020-10-23 | Outpatient (CLI) | payer MEDICARE, OTHER ==
[2020-10-13 15:00] VITALS: BP 130/60
[~2020-10-23] MED LIST changes: +ORPH100T PO
--- NOTE | 2020-10-23 17:41 | RAD ---
EXAM: PET/CT SCAN INDICATION: Multiple myeloma, restaging COMPARISON: PET CT 09/06/2019 PET/CT SCAN TECHNIQUE: Approximately 60 minutes after the intravenous administration of 14.79millicur ies of F-18 fluorodeoxyglucose (FDG), PET imaging of the body from the base of the skull through the toes was performed. Reconstruction in all 3 planes were performed. The patient's serum glucose level at the time of the F-18 FDG administration was 109 mg/dL. A noncontrast CT scan was obtained for atte nuation correction and anatomic localization purposes only and is not considered a diagnostic CT scan . PQRS compliance Statement One or more of the following individualized dose reduction techniques were utilized for this study: 1. Automated exposure control 2. Adjustment of the mA and/or kV according to patient size 3. Use of iterative reconstruction technique FINDINGS: HEAD AND NECK: No abnormal radiotracer uptake in the head and neck. CHEST: No FDG avid lymphadenopathy or abnormal FDG uptake in the lungs. Abnormal FDG uptake in bones discussed below. Heart is mildly enlarged. There are coronary artery calcifications. Thoracic aorta. Alignment is normal in caliber. There is a large hiatal hernia. Mild distention of the esophagus. Sma ll right and trace left pleural effusions. ABDOMEN AND PELVIS: No abnormal FDG uptake. There is physiologic uptake in the liver, spleen, and kid neys. Large bilateral exophytic simple renal cysts are unchanged. MUSCULOSKELETAL: There is intense FDG uptake in the T5 vertebral body, SUV max 24.4. This is new from prior PET/CT and may correspond with an underlying vague sclerotic lesion. There is mild FDG uptake within the T1 fracture. Unchanged low level FDG uptake in the T6 and L1 vertebral bodies. FDG uptake in the right anterior fifth rib is unchanged. There is persistent FDG uptake in the left anterior fif th, sixth, and seventh ribs. Persistent FDG uptake in the left iliac bone. No FDG uptake in the lower extremities. IMPRESSION: 1. New intense FDG uptake in the T5 vertebral body suspicious for disease involvement. 2. Persistent mild to moderate FDG uptake in the bilateral ribs and left iliac bone. 3. Unchanged low level FDG uptake in the T6-L1 vertebral bodies. Electronically signed by: Nishi Painter MD (10/23/2020 5:39 PM) [id number]
== END ==
LOC: PETSC 08:21
PROVIDERS: ATTEND Physician Assistant
DX: C90.00 Multiple myeloma not having achieved remission (principal); S22.019A Unspecified fracture of first thoracic vertebra, initial encounter for closed fracture; I51.7 Cardiomegaly; I25.10 Atherosclerotic heart disease of native coronary artery without angina pectoris; K44.9 Diaphragmatic hernia without obstruction or gangrene; N28.1 Cyst of kidney, acquired; X58.XXXA Exposure to other specified factors, initial encounter; Y93.89 Activity, other specified; Y92.89 Other specified places as the place of occurrence of the external cause; Y99.8 Other external cause status
CPT/HCPCS: 78816; A9552

== ENCOUNTER 2020-11-02 08:32 | Outpatient (CLI) | payer MEDICARE, OTHER ==
[~2020-11-02] VITALS: Ht 177.8 cm; Wt 88.6 kg
[2020-11-02] VITALS (11 sets, daily range): BP systolic 142–179; BP diastolic 66–91
[2020-11-02 09:25] LABS: BASO % 0 % (0-3); EOS # 0.1 x10^3/uL (0.0-0.7); EOS % 4 % (0-3); HEMATOCRIT 34.1 % (39.0-53.0); HEMOGLOBIN 11.7 g/dL (13.0-17.5); LYMPH # 0.7 x10^3/uL (1.0-4.8); LYMPH % 24 % (24-48); MEAN CORPUSCULAR HEMOGLOBIN 38 pg (25-35); MEAN CORPUSCULAR HGB CONC 34 g/dL (31-37); MEAN CORPUSCULAR VOLUME 110 fL (79-100); MONO # 0.3 x10^3/uL (0.0-1.1); MONO % 10 % (0-9); NEUT # 1.9 x10^3/uL (1.8-7.7); NEUT % 62 % (31-73); PLATELET COUNT 111 x10^3/uL (140-400); RED CELL DISTRIBUTION WIDTH 13.4 % (11.5-14.5)
[2020-11-02] MEDS ORDERED: LIDOCAINE WITH 8.4% SOD BICARB 3 ML DISP.SYRIN. ONE (09:30)
[2020-11-02] MEDS ORDERED: MIDAZOLAM HCL/PF 2 MG/2 ML VIAL. ONE (09:31)
[2020-11-02] MEDS ORDERED: fentaNYL PF VIAL 100 MCG/2 ML VIAL ONE (09:31)
[2020-11-02 09:33] LABS: PROTHROMBIN TIME PATIENT 12.6 SEC (11.7-14.0)
[2020-11-02] MEDS ORDERED: fentaNYL PF VIAL 100 MCG/2 ML VIAL IV ONE (09:45)
[2020-11-02] MEDS ORDERED: LIDOCAINE WITH 8.4% SOD BICARB 3 ML DISP.SYRIN. IJ ONE (09:45)
[2020-11-02] MEDS ORDERED: MIDAZOLAM HCL/PF 2 MG/2 ML VIAL. IV ONE (09:45)
[2020-11-02] MEDS ORDERED: ALPR1TAB6 PO (09:47)
--- NOTE | 2020-11-02 12:35 | NUR ---
Discharge Note: AIDA COWART Discharge instructions and discharge home medications reviewed with Patient and ; and a copy given. All questions have been answered and understanding verbalized. The following instructions and handouts were given: Moderate Sedation and bone marrow biopsy. Discontinued lines and drains: Left wrist IV dc'd, tip intact, and bandage applied. Patient discharged to home with via personal vehicle.
--- NOTE | 2020-11-02 16:29 | RAD ---
Procedure: CT guided iliac crest bone marrow aspirate and biopsy with conscious sedation . Clinical Indication: Multiple myeloma Discussion: The risks and benefits of the procedure including but not limited to infection, bleeding, and pain, were discussed the patient. Informed consent was obtained. Patient was brought to the CT s canner and placed in the prone position. A time out procedure was performed. The left gluteal region was prepped and draped using maximum sterile barrier technique. CT imaging of the pelvis was perform ed demonstrating a left ilium amenable to bone marrow biopsy. Once an appropriate site for skin entry was selected 1% lidocaine without epinephrine was administered for local anesthesia Following this an Sequence [employer] In [employer] an 11 gauge biopsy needle was set into the superficial cortex of the iliac crest. Aspirates and cores were obtained. Pressure was held to achieve hemostasis. Sterile dressing was applied. The patient tolerated the procedure well without immediate complication. Sedation: Conscious sedation was performed for 20 minutes. Sedation was carried while the patient wa s continually monitored by a member of the Radiology nursing staff. Continual cardiopulmonary monito ring was carried out during the procedure. Conclusion: Successful CT guided bone marrow biopsy and aspirate of left iliac crest CT DOSING PQRS STATEMENT: One or more of the following individualized dose reduction techniques were utilized for this examinat ion: 1. Automated exposure control 2. Adjustment of the mA and/or kV according to patient size 3. Use of iterative reconstruction technique Electronically signed by: Shravan Bennett MD (11/02/2020 4:26 PM) [id number]
== END 2020-11-02 12:38 | disposition home or self-care (01) ==
LOC: INTRAD 08:32
PROVIDERS: ATTEND Internal Medicine Hematology & Oncology
DX: C90.00 Multiple myeloma not having achieved remission (principal); Z20.822 Contact with and (suspected) exposure to COVID-19; I10 Essential (primary) hypertension; E78.00 Pure hypercholesterolemia, unspecified; I25.2 Old myocardial infarction; I42.9 Cardiomyopathy, unspecified; I25.10 Atherosclerotic heart disease of native coronary artery without angina pectoris; G20 Parkinson's disease; G61.0 Guillain-Barre syndrome; F41.9 Anxiety disorder, unspecified; H40.9 Unspecified glaucoma; F32.9 Major depressive disorder, single episode, unspecified; M19.90 Unspecified osteoarthritis, unspecified site; Z86.010 Personal history of colon polyps; Z87.442 Personal history of urinary calculi; Z87.440 Personal history of urinary (tract) infections; Z92.3 Personal history of irradiation; Z85.46 Personal history of malignant neoplasm of prostate; Z85.830 Personal history of malignant neoplasm of bone; Z87.891 Personal history of nicotine dependence; Z79.899 Other long term (current) drug therapy; Z95.5 Presence of coronary angioplasty implant and graft; Z98.890 Other specified postprocedural states
CPT/HCPCS: 36415; 38222; 77012; 85025; 85610; 87426; 99152; J2250; J3010; J3490

== ENCOUNTER → 2020-11-20 | Outpatient (CLI) | payer MEDICARE, OTHER ==
[2020-11-02 11:47] VITALS: BP 159/77
[~2020-11-20] MED LIST changes: +ALPR1TAB6 PO
[2020-11-20 11:57] LABS: CALCIUM 8.5 mg/dL (8.5-10.1); CREATININE 1.1 mg/dL (0.7-1.3); GFR 63.9; POTASSIUM 4.2 mmol/L (3.5-5.1)
[2020-11-20 12:07] LABS: BASO % 0 % (0-3); EOS % 1 % (0-3); HEMATOCRIT 33.5 % (39.0-53.0); HEMOGLOBIN 11.3 g/dL (13.0-17.5); LYMPH # 0.3 x10^3/uL (1.0-4.8); LYMPH % 6 % (24-48); MEAN CORPUSCULAR HEMOGLOBIN 38 pg (25-35); MEAN CORPUSCULAR HGB CONC 34 g/dL (31-37); MEAN CORPUSCULAR VOLUME 111 fL (79-100); MONO # 0.3 x10^3/uL (0.0-1.1); MONO % 5 % (0-9); NEUT % 88 % (31-73); PLATELET COUNT 123 x10^3/uL (140-400); RED BLOOD COUNT 3.02 x10^6/uL (4.30-5.70); RED CELL DISTRIBUTION WIDTH 14.1 % (11.5-14.5); WHITE BLOOD COUNT 5.6 x10^3/uL (4.0-11.0)
[2020-11-20 13:12] LABS: % EOS 1 % (0-5); % LYMPHS 6 % (24-48); % MONOS 4 % (0-10); % SEGS 89 % (35-66); PLT ESTIMATE DECREASED (ADEQUATE)
== END ==
LOC: ONCLAB 11:16
PROVIDERS: ATTEND Physician Assistant
DX: C90.00 Multiple myeloma not having achieved remission (principal)
CPT/HCPCS: 36415; 80048; 85007; 85025

== ENCOUNTER → 2020-11-27 | Outpatient (CLI) | payer MEDICARE, OTHER ==
[2020-11-02 11:47] VITALS: BP 159/77
--- NOTE | 2020-11-27 13:46 | RAD ---
EXAMINATION: CT pelvis without IV contrast. INDICATION:85 years, Male, pelvic pain. History of multiple myeloma. TECHNIQUE: Axial CT images of the pelvis were obtained. Coronal and sagittal reformatted performed. COMPARISON: PET/CT dated 10/20/2020. Exposure: One or more of the following individualized dose reduction techniques were utilized for thi s examination: 1. Automated exposure control 2. Adjustment of the mA and/or kV according to patient size 3. Use of iterative reconstruction technique. FINDINGS: Partially visualized simple 5.0 cm and 3.7 cm cysts in the right kidney. No bowel obstruction or wall thickening. Few sigmoid diverticulosis without diverticulitis. Moderate to severe aortobiiliac ather osclerotic calcifications without dilatation. No lymphadenopathy in the pelvis by size criteria. Unde rdistended urinary bladder which limits evaluation. Brachytherapy seed implants in the prostate. Trac e amount of pelvic free fluid. No pneumoperitoneum. MUSCULOSKELETAL: Diffuse osteopenia. Similar mixed lytic and sclerotic lesion with mild compression deformity of L5 ve rtebral body. Subcentimeter subtle lytic lesion in the left iliac bone, corresponds to previous hyper metabolic lesion seen on PET CT scan, most consistent with metastasis. Severe multilevel degenerative changes in the spine. No acute osseous process. IMPRESSION: 1. No acute osseous abnormality. No pelvic lymphadenopathy. 2. Similar mixed lytic and sclerotic lesion with mild compression deformity of L5 vertebral body. 3. Subcentimeter lytic lesion in the left iliac bone, corresponds to previous hypermetabolic lesion seen on PET CT scan, most consistent with metastasis. Electronically signed by: Carlos Medel MD (11/27/2020 1:44 PM) [facility]
== END ==
LOC: CT 15:21
PROVIDERS: ATTEND Physician Assistant
DX: M85.88 Other specified disorders of bone density and structure, other site (principal); M43.8X6 Other specified deforming dorsopathies, lumbar region; M47.819 Spondylosis without myelopathy or radiculopathy, site unspecified; I70.90 Unspecified atherosclerosis; N28.1 Cyst of kidney, acquired; K57.30 Diverticulosis of large intestine without perforation or abscess without bleeding; Z96.89 Presence of other specified functional implants; R10.2 Pelvic and perineal pain
CPT/HCPCS: 72192

== ENCOUNTER → 2020-12-09 | Outpatient (CLI) | payer MEDICARE, OTHER ==
[2020-11-02 11:47] VITALS: BP 159/77
[2020-12-09 11:28] LABS: BASO % 0 % (0-3); EOS # 0.6 x10^3/uL (0.0-0.7); EOS % 10 % (0-3); HEMATOCRIT 34.3 % (39.0-53.0); HEMOGLOBIN 11.8 g/dL (13.0-17.5); LYMPH # 0.4 x10^3/uL (1.0-4.8); LYMPH % 8 % (24-48); MEAN CORPUSCULAR HEMOGLOBIN 37 pg (25-35); MEAN CORPUSCULAR HGB CONC 34 g/dL (31-37); MEAN CORPUSCULAR VOLUME 109 fL (79-100); MONO # 0.4 x10^3/uL (0.0-1.1); MONO % 6 % (0-9); NEUT # 4.5 x10^3/uL (1.8-7.7); NEUT % 77 % (31-73); PLATELET COUNT 124 x10^3/uL (140-400); RED BLOOD COUNT 3.16 x10^6/uL (4.30-5.70); RED CELL DISTRIBUTION WIDTH 13.1 % (11.5-14.5); WHITE BLOOD COUNT 5.9 x10^3/uL (4.0-11.0)
[2020-12-09 11:47] LABS: ALBUMIN 2.8 g/dL (3.4-5.0); CREATININE 0.8 mg/dL (0.7-1.3); GFR 92.3; POTASSIUM 3.5 mmol/L (3.5-5.1); TOTAL BILIRUBIN 0.3 mg/dL (0.2-1.0); TOTAL PROTEIN 5.7 g/dL (6.4-8.2)
[2020-12-09 11:51] LABS: CALCIUM 8.1 mg/dL (8.5-10.1)
== END ==
LOC: ONCLAB 09:47
PROVIDERS: ATTEND Physician Assistant
DX: C90.00 Multiple myeloma not having achieved remission (principal)
CPT/HCPCS: 36415; 80053; 85025

== ENCOUNTER → 2020-12-16 | Outpatient (CLI) | payer MEDICARE, OTHER ==
[2020-11-02 11:47] VITALS: BP 159/77
[2020-12-16 10:55] LABS: CALCIUM 8.8 mg/dL (8.5-10.1); CREATININE 0.8 mg/dL (0.7-1.3); GFR 92.3
[2020-12-16 10:56] LABS: BASO % 0 % (0-3); EOS # 0.3 x10^3/uL (0.0-0.7); EOS % 6 % (0-3); HEMATOCRIT 37.1 % (39.0-53.0); HEMOGLOBIN 12.6 g/dL (13.0-17.5); LYMPH # 0.7 x10^3/uL (1.0-4.8); LYMPH % 12 % (24-48); MEAN CORPUSCULAR HEMOGLOBIN 37 pg (25-35); MEAN CORPUSCULAR HGB CONC 34 g/dL (31-37); MEAN CORPUSCULAR VOLUME 108 fL (79-100); MONO # 0.5 x10^3/uL (0.0-1.1); MONO % 9 % (0-9); NEUT % 73 % (31-73); PLATELET COUNT 124 x10^3/uL (140-400); RED BLOOD COUNT 3.44 x10^6/uL (4.30-5.70); RED CELL DISTRIBUTION WIDTH 13.7 % (11.5-14.5); WHITE BLOOD COUNT 5.5 x10^3/uL (4.0-11.0)
[2020-12-16 11:04] LABS: ALBUMIN 3.1 g/dL (3.4-5.0); ALBUMIN/GLOBULIN RATIO 1.2 (1.0-1.7); TOTAL BILIRUBIN 0.5 mg/dL (0.2-1.0); TOTAL PROTEIN 5.7 g/dL (6.4-8.2)
== END ==
LOC: ONCLAB 10:02
PROVIDERS: ATTEND Physician Assistant
DX: C90.00 Multiple myeloma not having achieved remission (principal)
CPT/HCPCS: 36415; 80053; 85025

== ENCOUNTER → 2020-12-24 | Outpatient (CLI) | payer MEDICARE, OTHER ==
[2020-11-02 11:47] VITALS: BP 159/77
[2020-12-24 12:14] LABS: BASO % 0 % (0-3); EOS # 0.2 x10^3/uL (0.0-0.7); EOS % 5 % (0-3); HEMATOCRIT 35.2 % (39.0-53.0); HEMOGLOBIN 12.2 g/dL (13.0-17.5); LYMPH # 0.4 x10^3/uL (1.0-4.8); LYMPH % 10 % (24-48); MEAN CORPUSCULAR HEMOGLOBIN 37 pg (25-35); MEAN CORPUSCULAR HGB CONC 35 g/dL (31-37); MEAN CORPUSCULAR VOLUME 107 fL (79-100); MONO # 0.3 x10^3/uL (0.0-1.1); MONO % 8 % (0-9); NEUT % 77 % (31-73); PLATELET COUNT 126 x10^3/uL (140-400); RED BLOOD COUNT 3.29 x10^6/uL (4.30-5.70); RED CELL DISTRIBUTION WIDTH 13.4 % (11.5-14.5)
[2020-12-24 12:32] LABS: CALCIUM 8.8 mg/dL (8.5-10.1); CREATININE 0.8 mg/dL (0.7-1.3); GFR 92.3; POTASSIUM 3.7 mmol/L (3.5-5.1)
[2020-12-24 12:40] LABS: ALBUMIN 2.9 g/dL (3.4-5.0); ALBUMIN/GLOBULIN RATIO 0.9 (1.0-1.7); TOTAL BILIRUBIN 0.3 mg/dL (0.2-1.0); TOTAL PROTEIN 6.2 g/dL (6.4-8.2)
== END ==
LOC: ONCLAB 11:09
PROVIDERS: ATTEND Internal Medicine Hematology & Oncology
DX: C90.00 Multiple myeloma not having achieved remission (principal)
CPT/HCPCS: 36415; 80053; 85025

== ENCOUNTER → 2020-12-31 | Outpatient (CLI) | payer MEDICARE, OTHER ==
[2020-11-02 11:47] VITALS: BP 159/77
[2020-12-31 12:30] LABS: BASO % 0 % (0-3); EOS # 0.1 x10^3/uL (0.0-0.7); EOS % 2 % (0-3); HEMATOCRIT 35.3 % (39.0-53.0); HEMOGLOBIN 11.8 g/dL (13.0-17.5); LYMPH # 0.4 x10^3/uL (1.0-4.8); LYMPH % 10 % (24-48); MEAN CORPUSCULAR HEMOGLOBIN 36 pg (25-35); MEAN CORPUSCULAR HGB CONC 34 g/dL (31-37); MEAN CORPUSCULAR VOLUME 107 fL (79-100); MONO # 0.3 x10^3/uL (0.0-1.1); MONO % 9 % (0-9); NEUT # 3.1 x10^3/uL (1.8-7.7); NEUT % 80 % (31-73); PLATELET COUNT 138 x10^3/uL (140-400); RED CELL DISTRIBUTION WIDTH 13.8 % (11.5-14.5); WHITE BLOOD COUNT 3.9 x10^3/uL (4.0-11.0)
[2020-12-31 12:45] LABS: CALCIUM 8.8 mg/dL (8.5-10.1); CREATININE 0.9 mg/dL (0.7-1.3); GFR 80.6; POTASSIUM 3.6 mmol/L (3.5-5.1)
[2020-12-31 12:55] LABS: ALBUMIN 2.9 g/dL (3.4-5.0); ALBUMIN/GLOBULIN RATIO 0.9 (1.0-1.7); TOTAL BILIRUBIN 0.4 mg/dL (0.2-1.0); TOTAL PROTEIN 6.1 g/dL (6.4-8.2)
== END ==
LOC: ONCLAB 11:46
PROVIDERS: ATTEND Internal Medicine Hematology & Oncology
DX: C90.00 Multiple myeloma not having achieved remission (principal)
CPT/HCPCS: 36415; 80053; 85025

== ENCOUNTER → 2021-01-07 | Outpatient (CLI) | payer MEDICARE, OTHER ==
[2020-11-02 11:47] VITALS: BP 159/77
[2021-01-08 12:34] LABS: BASO % 1 % (0-3); EOS # 0.1 x10^3/uL (0.0-0.7); EOS % 2 % (0-3); HEMATOCRIT 38.3 % (39.0-53.0); LYMPH # 0.6 x10^3/uL (1.0-4.8); LYMPH % 14 % (24-48); MEAN CORPUSCULAR HEMOGLOBIN 36 pg (25-35); MEAN CORPUSCULAR HGB CONC 34 g/dL (31-37); MEAN CORPUSCULAR VOLUME 106 fL (79-100); MONO # 0.5 x10^3/uL (0.0-1.1); MONO % 11 % (0-9); NEUT # 3.2 x10^3/uL (1.8-7.7); NEUT % 73 % (31-73); PLATELET COUNT 143 x10^3/uL (140-400); RED BLOOD COUNT 3.63 x10^6/uL (4.30-5.70); RED CELL DISTRIBUTION WIDTH 13.5 % (11.5-14.5); WHITE BLOOD COUNT 4.4 x10^3/uL (4.0-11.0)
== END ==
LOC: ONCLAB 11:41
PROVIDERS: ATTEND Internal Medicine Hematology & Oncology
DX: C90.30 Solitary plasmacytoma not having achieved remission (principal)
CPT/HCPCS: 36415; 85025

== ENCOUNTER → 2021-01-08 | Outpatient (CLI) | payer MEDICARE, OTHER ==
[2020-11-02 11:47] VITALS: BP 159/77
== END | disposition home or self-care (01) ==
LOC: OPS 09:54
PROVIDERS: ATTEND Physician Assistant
DX: C90.00 Multiple myeloma not having achieved remission (principal); R07.82 Intercostal pain; N28.1 Cyst of kidney, acquired; R10.2 Pelvic and perineal pain
CPT/HCPCS: G0463

== ENCOUNTER → 2021-01-15 | Outpatient (CLI) | payer MEDICARE, OTHER ==
[2020-11-02 11:47] VITALS: BP 159/77
[2021-01-15 11:13] LABS: BASO % 0 % (0-3); EOS # 0.1 x10^3/uL (0.0-0.7); EOS % 3 % (0-3); HEMATOCRIT 37.6 % (39.0-53.0); HEMOGLOBIN 12.7 g/dL (13.0-17.5); LYMPH # 0.5 x10^3/uL (1.0-4.8); LYMPH % 12 % (24-48); MEAN CORPUSCULAR HEMOGLOBIN 36 pg (25-35); MEAN CORPUSCULAR HGB CONC 34 g/dL (31-37); MEAN CORPUSCULAR VOLUME 106 fL (79-100); MONO # 0.4 x10^3/uL (0.0-1.1); MONO % 9 % (0-9); NEUT # 3.2 x10^3/uL (1.8-7.7); NEUT % 76 % (31-73); PLATELET COUNT 127 x10^3/uL (140-400); RED BLOOD COUNT 3.55 x10^6/uL (4.30-5.70); RED CELL DISTRIBUTION WIDTH 13.5 % (11.5-14.5); WHITE BLOOD COUNT 4.2 x10^3/uL (4.0-11.0)
[2021-01-15 11:32] LABS: ALBUMIN 3.1 g/dL (3.4-5.0); CALCIUM 8.5 mg/dL (8.5-10.1); CREATININE 0.8 mg/dL (0.7-1.3); GFR 92.3; POTASSIUM 3.6 mmol/L (3.5-5.1); TOTAL BILIRUBIN 0.4 mg/dL (0.2-1.0); TOTAL PROTEIN 6.3 g/dL (6.4-8.2)
== END ==
LOC: ONCLAB 11:06
PROVIDERS: ATTEND Physician Assistant
DX: C90.30 Solitary plasmacytoma not having achieved remission (principal)
CPT/HCPCS: 36415; 80053; 85025

== ENCOUNTER → 2021-01-15 | Outpatient (CLI) | payer MEDICARE, OTHER ==
[2020-11-02 11:47] VITALS: BP 159/77
--- NOTE | 2021-01-15 17:29 | RAD ---
EXAM: Chest, 2 views. HISTORY: Chest wall pain. COMPARISON: None. FINDINGS: 2 views of the chest are obtained. There is no infiltrate, pleural effusion or pneumothorax . The heart is normal in size. There is a small hiatal hernia. There are healed rib fractures. IMPRESSION: No acute pulmonary finding. Electronically signed by: Amee Henderson MD (01/15/2021 5:27 PM) [facility]
== END ==
LOC: RAD 14:24
PROVIDERS: ATTEND Internal Medicine Hematology & Oncology
DX: R07.82 Intercostal pain (principal); K44.9 Diaphragmatic hernia without obstruction or gangrene; Z87.81 Personal history of (healed) traumatic fracture
CPT/HCPCS: 71046

== ENCOUNTER → 2021-01-22 | Outpatient (CLI) | payer MEDICARE, OTHER ==
[2020-11-02 11:47] VITALS: BP 159/77
[2021-01-22 12:29] LABS: BASO % 0 % (0-3); EOS # 0.1 x10^3/uL (0.0-0.7); EOS % 2 % (0-3); HEMATOCRIT 35.7 % (39.0-53.0); LYMPH # 0.5 x10^3/uL (1.0-4.8); LYMPH % 13 % (24-48); MEAN CORPUSCULAR HEMOGLOBIN 35 pg (25-35); MEAN CORPUSCULAR HGB CONC 34 g/dL (31-37); MEAN CORPUSCULAR VOLUME 105 fL (79-100); MONO # 0.3 x10^3/uL (0.0-1.1); MONO % 8 % (0-9); NEUT % 77 % (31-73); PLATELET COUNT 126 x10^3/uL (140-400); RED BLOOD COUNT 3.41 x10^6/uL (4.30-5.70); RED CELL DISTRIBUTION WIDTH 13.6 % (11.5-14.5); WHITE BLOOD COUNT 3.9 x10^3/uL (4.0-11.0)
[2021-01-22 12:40] LABS: CALCIUM 8.5 mg/dL (8.5-10.1); CREATININE 0.8 mg/dL (0.7-1.3); GFR 92.3; POTASSIUM 4.1 mmol/L (3.5-5.1)
[2021-01-22 12:51] LABS: ALBUMIN 2.9 g/dL (3.4-5.0); TOTAL BILIRUBIN 0.4 mg/dL (0.2-1.0); TOTAL PROTEIN 5.9 g/dL (6.4-8.2)
== END ==
LOC: ONCLAB 11:19
PROVIDERS: ATTEND Internal Medicine Hematology & Oncology
DX: C90.00 Multiple myeloma not having achieved remission (principal)
CPT/HCPCS: 36415; 80053; 85025

== ENCOUNTER 2021-01-30 19:05 | Inpatient (IN) | payer MEDICARE, OTHER ==
[~2021-01-30] VITALS: Ht 177.8 cm; Wt 83.1 kg
--- NOTE | 2021-01-30 19:28 | PHYS DOC ---
Past Medical History Past Medical History: CAD, Cancer, Diverticulitis, Heart Disease, Hypertension, MO, Other Additional Past Medical Histor: PROSTATE CA,PARKINSONS,MULTIPLE MYELOMA,GUILLAIN BARRE SYNDROME Past Surgical History: Angioplasty, Other Additional Past Surgical Histo: BONE MARROW ASPIRATION, CARDIAC STENT Smoking Status: Former Smoker Alcohol Use: None Drug Use: None General Adult EDM: Chief Complaint: CHEST PAIN-CARDIAC NATURE HPI: HPI: Patient is a 85-year-old male with past medical history of CAD status post stents, multiple myeloma currently on chemo, hypertension, and Parkinson's presenting per EMS for chest pain that started more than 1 hour ago. He describes the pain as a pressure in the center of his chest that radiates to his left arm. He reports that he has felt more short of breath throughout this afternoon. Per EMS, patient's first blood pressure was 200 systolic then decreased after the first nitro to 130 systolic and patient reported an improvement in his pain from 8 out of 10 to a 5 out of 10. He denies associated nausea, vomiting, or dizziness. He reports he last saw his external relations manager Dr. Lakhani few weeks ago for routine checkup. Review of Systems: Review of Systems: Constitutional: Denies fever or chills Eyes: Denies redness or eye pain HENT: Denies nasal congestion or sore throat Respiratory:Denies cough; reports shortness of breath Cardiovascular:Denies palpitations; reports chest pain. GI: Denies abdominal pain, nausea, or vomiting : Denies dysuria or hematuria Musculoskeletal: Denies back pain or joint pain Integument: Denies rash or skin lesions Neurologic: Denies headache, focal weakness or sensory changes Complete systems were reviewed and found to be within normal limits, except as documented in this note. Heart Score: C/O Chest Pain: Yes HEART Score for Chest Pain: HEART Score for Chest Pain Response (Comments) Value History Moderately Suspicious 1 ECG Normal 0 Age > 65 2 Risk Factors >3 Risk Factors or Hx CAD 2 Troponin < Normal Limit 0 Total 5 Risk Factors: Risk Factors: DM, Current or recent (<one month) smoker, HTN, HLP, family history of CAD, obesity. Risk Scores: Score 0 - 3: 2.5% MACE over next 6 weeks - Discharge Home Score 4 - 6: 20.3% MACE over next 6 weeks - Admit for Clinical Observation Score 7 - 10: 72.7% MACE over next 6 weeks - Early Invasive Strategies Allergies: Allergies: Allergies Coded Allergies Type Severity Reaction Last Updated Verified No Known Drug Allergies 10/10/20 No Physical Exam: PE: Constitutional: Well developed, well nourished, no acute distress, non-toxic appearance HENT: Normocephalic, atraumatic Eyes: EOMI, conjunctiva normal, no discharge Neck: Normal range of motion, no tenderness, supple Lungs & Thorax: No respiratory distress, equal chest rise and fall Abdomen: Soft, no tenderness Skin: Warm, dry, no rash Back: No tenderness, no CVA tenderness Extremities: ROM intact, no edema, upper extremity tremor at rest Neurologic: Alert and oriented X 3, normal motor function, normal sensory function, no focal deficits noted, resting tremor noted Psychologic: Affect normal, judgment normal EKG: EKG: Completed at 1909, normal sinus rhythm at a rate of 95 bpm, no acute ST segment changes, QRS 78 ms, QT 336 ms, QTc 425 ms Completed at 1957, normal sinus rhythm at a rate of 86 bpm, no acute ST segment changes, QRS 84 ms, QT 380 ms, QTc 458 ms Radiology/Procedures: Radiology/Procedures: PROCEDURE: CT ANGIOGRAPHY CHEST CTA Chest with contrast: Clinical History: Reason: chest pain, elevated d-dimer, eval for PE, OMNI 350, 100 ML IV / Spl. Instructions: / History: Shortness of breath. Axial helical images of the chest were obtained after the administration of 100 cc of IV Omni 350 and timed appropriately for a pulmonary arterial study. Conventional axial reconstruction was performed in addition to coronal, sagittal and bilateral oblique MIP (maximum intensity projection). This study was ordered to detect possible pulmonary embolism. COMPARISON: July 23, 2020 FINDINGS: There are no filling defects to suggest pulmonary embolism. The lungs and pleural margins are clear. There is no mediastinal or hilar lymphadenopathy. The thoracic aorta appears normal. There is a moderate size hiatal hernia. There is old rib fractures bilaterally. Impression: 1. No evidence of pulmonary embolism. 2. No significant findings. End impression PQRS Compliance Statement: One or more of the following individualized dose reduction techniques were utilized for this examination: 1. Automated exposure control 2. Adjustment of the mA and/or kV according to patient size 3. Use of iterative reconstruction technique Electronically signed by: Jesus Ty III, MD (01/30/2021 8:49 PM) [facility] PROCEDURE: PORTABLE CHEST 1V XR CHEST 1V Clinical History: Reason: chest pain blood work 7:25 / Spl. Instructions: / History: Technique: AP view of the chest was obtained at 01/30/2021 8:11 PM. Comparison: January 15, 2021. Findings: The heart is normal in size. The pulmonary vessels appear normal. This patchy opacity in the lung bases left worse than right. There is old rib fractures bilaterally. Prominence of the mediastinum is likely a hiatal hernia. Impression: Mild basal infiltrates likely discoid atelectasis. Electronically signed by: Jesus Ty III, MD (01/30/2021 9:46 PM) [facility] Course & Med Decision Making: Course & Med Decision Making Pertinent Labs and Imaging studies reviewed. (See chart for details) Patient is a 85-year-old male with past medical history of CAD with stents, hypertension, multiple myeloma currently on chemo, and Parkinson's presenting for chest pain. Heart score 5. Both EKGs demonstrated no acute ST segment changes. 324 mg aspirin and 1 sublingual nitro given per EMS. Fentanyl given for continued chest pain along with 1 L normal saline. CBC unremarkable when compared with previous. D-dimer elevated 0.83. CMP unremarkable besides an elevated pro BNP of 1043. Troponin negative. Urine unremarkable. Rapid Covid negative. CT chest negative for evidence of pulmonary embolism. CXR showed some evidence of atelectasis, but no cardiomegaly or evidence of pneumonia. Based on risk factors and heart score of 5 recommended admission for further wor k-up with cardiology. Patient agreeable to plan. Patient requiring admission for further evaluation and treatment. Discussed with Dr. Gudino (PCP) who is in agreement with admission. Discussed findings and plan with patient and spouse, who acknowledge understanding and agreement. Kseniaon Disclaimer: Brooks Disclaimer: This electronic medical record was generated, in whole or in part, using a voice recognition dictation system. Departure Departure Impression: Primary Impression: Chest pain Qualified Codes: R07.9 - Chest pain, unspecified Disposition: ADMITTED INPATIENT Admitting Physician: Tawny Gudino Condition: STABLE Referrals: TAWNY GUDINO MD (PCP) YUE LA DO Jan 30, 2021 19:28
[2021-01-30 19:41] LABS: BASO % 1 % (0-3); EOS # 0.1 x10^3/uL (0.0-0.7); EOS % 2 % (0-3); HEMATOCRIT 37.1 % (39.0-53.0); HEMOGLOBIN 12.7 g/dL (13.0-17.5); LYMPH # 1.1 x10^3/uL (1.0-4.8); LYMPH % 26 % (24-48); MEAN CORPUSCULAR HEMOGLOBIN 35 pg (25-35); MEAN CORPUSCULAR HGB CONC 34 g/dL (31-37); MEAN CORPUSCULAR VOLUME 104 fL (79-100); MONO # 0.5 x10^3/uL (0.0-1.1); MONO % 12 % (0-9); NEUT # 2.7 x10^3/uL (1.8-7.7); NEUT % 60 % (31-73); PLATELET COUNT 156 x10^3/uL (140-400); RED BLOOD COUNT 3.59 x10^6/uL (4.30-5.70); RED CELL DISTRIBUTION WIDTH 13.5 % (11.5-14.5); WHITE BLOOD COUNT 4.5 x10^3/uL (4.0-11.0)
[2021-01-30 19:52] LABS: CREATININE 0.8 mg/dL (0.7-1.3); GFR 92.3; POTASSIUM 3.8 mmol/L (3.5-5.1); PROTHROMBIN TIME PATIENT 12.5 SEC (11.7-14.0)
[2021-01-30 19:58] LABS: ALBUMIN 3.1 g/dL (3.4-5.0); MAGNESIUM 1.9 mg/dL (1.8-2.4); TOTAL BILIRUBIN 0.4 mg/dL (0.2-1.0); TOTAL PROTEIN 6.3 g/dL (6.4-8.2)
[2021-01-30 20:08] LABS: BILIRUBIN,URINE NEGATIVE (NEG); CLARITY,URINE CLOUDY; COLOR,URINE YELLOW; NITRITE,URINE NEGATIVE (NEG); PH,URINE 7.5 (<5.0-8.0); PROTEIN,URINE NEGATIVE (NEG-TRACE)
[2021-01-30 20:14] LABS: AMORPHOUS SEDIMENT,UR PRESENT /HPF; BACTERIA,URINE 0 /HPF (0-FEW); RBC,URINE RARE /HPF (0-2); WBC,URINE 0 /HPF (0-4)
[2021-01-30] MEDS ORDERED: CONTRAST GIVEN. MC PRN (20:15)
[2021-01-30] MEDS ORDERED: fentaNYL PF VIAL 100 MCG/2 ML VIAL IV ONE (20:30)
--- NOTE | 2021-01-30 20:51 | RAD ---
CTA Chest with contrast: Clinical History: Reason: chest pain, elevated d-dimer, eval for PE, OMNI 350, 100 ML IV / Spl. Instr uctions: / History: Shortness of breath. Axial helical images of the chest were obtained after the administration of 100 cc of IV Omni 350 and timed appropriately for a pulmonary arterial study. Conventional axial reconstruction was performed in addition to coronal, sagittal and bilateral oblique MIP (maximum intensity projection). This catrina dy was ordered to detect possible pulmonary embolism. COMPARISON: July 23, 2020 FINDINGS: There are no filling defects to suggest pulmonary embolism. The lungs and pleural margins are clear. There is no mediastinal or hilar lymphadenopathy. The thoracic aorta appears normal. There is a moderate size hiatal hernia. There is old rib fractures bilaterally. Impression: 1. No evidence of pulmonary embolism. 2. No significant findings. End impression PQRS Compliance Statement: One or more of the following individualized dose reduction techniques were utilized for this examinat ion: 1. Automated exposure control 2. Adjustment of the mA and/or kV according to patient size 3. Use of iterative reconstruction technique Electronically signed by: Jesus Ty III, MD (01/30/2021 8:49 PM) [facility]
[2021-01-30] MEDS ORDERED: IOHEXOL 350 MG/ML 100 ML VIAL. IV ONE (21:00)
[2021-01-30] MEDS ORDERED: IV NORMAL SALINE 1000ML BAG 1,000 ML IV ONE (21:00)
[2021-01-30] MEDS ORDERED: ONDANSETRON PF 4 MG/2 ML VIAL. IVP PRN (21:30)
--- NOTE | 2021-01-30 21:48 | RAD ---
XR CHEST 1V Clinical History: Reason: chest pain blood work 7:25 / Spl. Instructions: / History: Technique: AP view of the chest was obtained at 01/30/2021 8:11 PM. Comparison: January 15, 2021. Findings: The heart is normal in size. The pulmonary vessels appear normal. This patchy opacity in the lung bas es left worse than right. There is old rib fractures bilaterally. Prominence of the mediastinum is li anne marie a hiatal hernia. Impression: Mild basal infiltrates likely discoid atelectasis. Electronically signed by: Jesus Ty III, MD (01/30/2021 9:46 PM) [facility]
[2021-01-30] MEDS: fentaNYL PF VIAL 100 MCG/2 ML VIAL IVP PRN (22:41)
[2021-01-31] VITALS (7 sets, daily range): BP systolic 130–190; BP diastolic 75–109
[2021-01-31] MEDS ORDERED: TRAM50TA PO (01:25)
[2021-01-31] MEDS ORDERED: POTA20TA4 PO (02:07)
[2021-01-31] MEDS ORDERED: CARB1TAB44 PO (02:07)
[2021-01-31] MEDS ORDERED: FLUD0.1T PO (02:07)
[2021-01-31] MEDS ORDERED: PANT40TA77 PO (02:07)
[2021-01-31] MEDS ORDERED: ACYC800T88 PO (02:07)
--- NOTE | 2021-01-31 05:24 | EKG ---
[facility] [address] [place] [address] Test Date: 2021-01-30 Test Time: 19:57:57 Pat Name: AIDA COWART Department: Room: [facility] Gender: M Strategy Planning Consultant: : 1935 Requested By: YUE LA Order Number: [id number] Reading MD: Bony Lakhani Measurements Intervals [place] Rate: 86 P: 2 SD: 198 QRS: -22 QRSD: 84 T: 53 QT: 380 QTc: 458 Interpretive Statements SINUS RHYTHM LEFTWARD AXIS QRS(T) CONTOUR ABNORMALITY CONSISTENT WITH ANTEROSEPTAL INFARCT AGE UNDETERMINED T ABNORMALITY IN HIGH LATERAL LEADS ABNORMAL ECG Electronically Signed On 01-31-2021 12:43:02 CDT by Bony Lakhani
--- NOTE | 2021-01-31 05:25 | EKG ---
[facility] [address] [place] [address] Test Date: 2021-01-30 Test Time: 19:09:28 Pat Name: AIDA COWART Department: Room: [facility] Gender: M Business Process Manager: : 1935 Requested By: YUE LA Order Number: [id number] Reading MD: Bony Lakhani Measurements Intervals [place] Rate: 95 P: -42 TN: 204 QRS: -23 QRSD: 78 T: 31 QT: 336 QTc: 425 Interpretive Statements SINUS RHYTHM LEFT ATRIAL ABNORMALITY LEFTWARD AXIS QRS(T) CONTOUR ABNORMALITY CONSISTENT WITH ANTEROSEPTAL INFARCT AGE UNDETERMINED Electronically Signed On 01-31-2021 12:43:29 CDT by Bony Lakhani
[2021-01-31] MEDS: fentaNYL PF VIAL 100 MCG/2 ML VIAL IVP PRN ×2 (08:54→21:17)
[2021-01-31] MEDS ORDERED: traMADol 50 MG TABLET PO PRN ×2 (10:00)
[2021-01-31] MEDS ORDERED: DOCUSATE SODIUM 100 MG CAPSULE. PO PRN (10:00)
--- NOTE | 2021-01-31 10:11 | PDOC ---
Provider Note Date of Service: DATE: 01/31/21 TIME: 10:09 Provider Note [id number] Justifications for Admission Other Justification TAWNY GUDINO MD Jan 31, 2021 10:11
[2021-01-31] MEDS: PANTOPRAZOLE 40 MG TABLET.DR. PO SCH (10:38)
[2021-01-31] MEDS: CARVEDILOL 6.25 MG TABLET. PO SCH ×2 (10:39→17:13)
[2021-01-31] MEDS: ACYCLOVIR 200 MG CAPSULE. PO SCH ×2 (10:39→21:17)
[2021-01-31] MEDS: POTASSIUM CHLORIDE 20 MEQ TABLET.ER. PO SCH (10:39)
[2021-01-31] MEDS ORDERED: FLUDROCORTISONE 0.1 MG TABLET PO SCH (11:00)
[2021-01-31] MEDS ORDERED: SIMVASTATIN 20 MG TABLET PO SCH (11:00)
[2021-01-31] MEDS: TIMOLOL 0.5% OPHTH SOLUTION 5ML BOTTLE. OU SCH ×2 (11:44→21:18)
[2021-01-31] MEDS: BRIMONIDINE 0.2% OPHTH SOLUTION 5ML BOTTLE. OU SCH ×2 (11:45→21:18)
--- NOTE | 2021-01-31 11:50 | HP ---
DATE OF SERVICE: 01/31/2021 ADMIT DATE: 01/30/2021 CHIEF COMPLAINT: Headache and chest pain. HISTORY OF PRESENT ILLNESS: An 85-year-old white male with multiple medical problems including multiple myeloma, coronary disease by history, Parkinson's disease and others. He takes Florinef for orthostatic hypotension from Parkinson's, but lately he has been having headaches and chest pressure and pain and blood pressure has been high at home. He has been taken off several medicines including carvedilol and amlodipine in the last few months because of blood pressure reduction. He has no visual complaints. No other specific complaints and ER evaluation was unremarkable. PAST MEDICAL HISTORY: Well documented in the old record. ALLERGIES: No allergies. MEDICATIONS: Multiple meds listed per the chart. SOCIAL HISTORY: Disabled, lives at home with his . Nonsmoker, nondrinker. FAMILY HISTORY: Unremarkable. REVIEW OF SYSTEMS: No other complaints. OBJECTIVE: ENT: All within normal limits. Funduscopic exam was not done. NECK: Revealed no carotid bruits, nodes or masses. LUNGS: Clear, without tachypnea. CARDIOVASCULAR: Regular rate. No tachycardia or murmur. ABDOMEN: Soft, benign, nontender. EXTREMITIES: Good pedal and radial pulses. No edema. No joint or skin lesions. NEUROLOGIC: He has bilateral parkinsonian tremor in each arm, right greater than left. He has some cogwheeling and stiffness. Gait was not tested. He moves all upper and lower extremities. Mental status is intact for him. ASSESSMENT: Headache, chest pain and generalized discomfort consistent with uncontrolled hypertension. He has a history of Parkinson's disease and previous orthostatic hypotension and takes Florinef for that condition. All other medical problems are stable. PLAN: Discontinue Florinef and will resume amlodipine and carvedilol to lower blood pressure for now and see if his headache and chest pain respond. Appropriate consultations. CAM/GABBY/DEBI DR: CAM/kizzy TID: [id number]
[2021-01-31] MEDS: CARBIDOPA/LEVODOPA CR 25/100MG TABLET.SA. PO SCH ×2 (14:24→21:17)
--- NOTE | 2021-01-31 17:37 | PDOC2 ---
CONSULT Date of Consult Date of Consult DATE: 01/31/21 TIME: 17:30 Reason for Consult Reason for Consult: Chest pain Referring Physician Referring Physician: Dr. Sullivan Identification/Chief Complaint Chief Complaint Chest pain Source Source: Chart review, Patient History of Present Illness Reason for Visit: The patient is an 85-year-old male who developed episodes of chest pain and headache last evening and came to the emergency room. His initial EKG showed no acute ischemic changes and additional troponin was normal. He received a CT scan with contrast of the chest that showed no evidence of pulmonary emboli. Chest x-ray showed mild basilar infiltrates. He has an extensive medical history including previous coronary stenting, hypertension, multiple myeloma treated with chemotherapy and a history of a bone marrow transplant. His troponins have remained stable and normal overnight. He has had recent episodes of hypertension. He states that originally he was treated for hypotension with Florinef. This morning he is feeling comfortable. His chest pain has largely resolved. Past Medical History Cardiovascular: CAD, HTN, [place], Syncope, Other Pulmonary: No pertinent hx CENTRAL NERVOUS SYSTEM: Other (Parkinson's disease) GI: Diverticulosis, Hemorrhoids Heme/Onc: Other (Multiple myeloma) Hepatobiliary: No pertinent hx Psych: Depression Musculoskeletal: Osteoarthritis Rheumatologic: No pertinent hx Infectious disease: No pertinent hx Renal/: Benign prostatic enlarg., Prostate Ca. Endocrine: Diabetes Past Surgical History Past Surgical History: Other (Reported coronary stents.) Family History Family History: Hypertension Social History Quit ALCOHOL: none Drugs: None Lives: with Family Current Medications Current Medications Current Medications Fentanyl Citrate (Fentanyl 2ml Vial) 50 mcg 1X ONCE IV Last administered on 01/30/21at 20:45; Start 01/30/21 at 20:30; Stop 01/30/21 at 20:31; Status DC Sodium Chloride 1,000 ml @ 1,000 mls/hr 1X ONCE IV Last administered on 01/30/21at 20:45; Start 01/30/21 at 21:00; Stop 01/30/21 at 21:59; Status DC Iohexol (Omnipaque 350 Mg/ml) 100 ml 1X ONCE IV Last administered on 01/30/21at 20:41; Start 01/30/21 at 21:00; Stop 01/30/21 at 21:01; Status DC Info (CONTRAST GIVEN -- Rx MONITORING) 1 each PRN DAILY PRN MC SEE COMMENTS; Start 01/30/21 at 20:15; Stop 02/01/21 at 20:14 Ondansetron HCl (Zofran) 4 mg PRN Q8HRS PRN IVP NAUSEA/VOMITING; Start 01/30/21 at 21:30; Stop 01/31/21 at 21:29 Fentanyl Citrate (Fentanyl 2ml Vial) 50 mcg PRN Q2HR PRN IVP PAIN Last administered on 01/31/21at 08:54; Start 01/30/21 at 21:30 Docusate Sodium (Colace) 100 mg PRN DAILY PRN PO HARD STOOLS; Start 01/31/21 at 10:00 Fludrocortisone Acetate (Florinef) 0.1 mg DAILY PO ; Start 01/31/21 at 11:00; Stop 01/31/21 at 10:17; Status DC Latanoprost (Xalatan) 1 drop QHS OU ; Start 01/31/21 at 21:00 Pantoprazole Sodium (Protonix) 40 mg DAILYAC PO Last administered on 01/31/21at 10:38; Start 01/31/21 at 11:00 Potassium Chloride (Klor-Con) 40 meq DAILY PO Last administered on 01/31/21at 10:39; Start 01/31/21 at 11:00 Simvastatin (Zocor) 20 mg DAILY PO Last administered on 01/31/21at 10:39; Start 01/31/21 at 11:00 Tamsulosin HCl (Flomax) 0.4 mg HS PO ; Start 01/31/21 at 21:00 Tramadol HCl (Ultram) 50 mg PRN TID PRN PO MODERATE PAIN; Start 01/31/21 at 10:00 Acyclovir (Zovirax) 800 mg BID PO Last administered on 01/31/21at 10:39; Start 01/31/21 at 11:00 Brimonidine Tartrate (Alphagan) 1 drop BID OU Last administered on 01/31/21at 11:45; Start 01/31/21 at 11:00 Carbidopa/Levodopa (Sinemet Cr) 2 tab.sa TID PO Last administered on 01/31/21at 14:24; Start 01/31/21 at 14:00 Timolol Maleate (Timoptic 0.5% [facility]) 1 drop BID OU Last administered on 01/31/21at 11:44; Start 01/31/21 at 11:00 Tramadol HCl (Ultram) 100 mg PRN TID PRN PO SEVERE PAIN; Start 01/31/21 at 10:00 Amlodipine Besylate (Norvasc) 5 mg DAILY PO Last administered on 01/31/21at 10:38; Start 01/31/21 at 10:30 Carvedilol (Coreg) 6.25 mg BIDWMEALS PO Last administered on 01/31/21at 17:13; Start 01/31/21 at 10:30 Active Scripts Active Reported Pantoprazole Sodium (Pantoprazole Sodium) 40 Mg Tablet.dr 40 Mg PO DAILYAC Potassium Chloride (Potassium Chloride) 20 Meq Tablet.er 40 Meq PO DAILY Fludrocortisone Acetate 0.1 Mg Tablet 1 Tab PO DAILY Carbidopa-Levo Er 50-200 Tab (Carbidopa/Levodopa) 1 Each Tablet.er 1 Each PO TID Acyclovir 800 Mg Tablet 800 Mg PO BID Tramadol Hcl 50 Mg Tablet 50 Mg PO TID PRN Feosol (Ferrous Sulfate) 325 Mg Tablet 1 Tab PO DAILY 30 Days Fish Oil 1,000 Mg Capsule ([place]-3 Fatty Acids/Fish Oil) 1 Each Capsule 1 Each PO DAILY Latanoprost 2.5 Ml Drops 1 Drop EACHEYE QHS Docusate Sodium 100 Mg Capsule 1 Cap PO DAILY PRN Timoptic 0.5% Ocudose Drop (Timolol Maleate/Pf) 1 Each Droperette 1 Each OP BID Flomax (Tamsulosin Hcl) 0.4 Mg Cap.er.24h 0.4 Mg PO HS Calcium 600 + Vit D 200 Tablet (Calcium Carbonate/Vitamin D3) 1 Each Tablet 2 Each PO DAILY Daily Multiple Vitamin (Multivitamin) 1 Each Tablet 1 Each PO DAILY Alphagan P (Brimonidine Tartrate) 5 Ml Drops 1 Drop EACHEYE BID Simvastatin 20 Mg Tablet 20 Mg PO DAILY Allergies Allergies: Coded Allergies: No Known Drug Allergies (Unverified , 10/10/20) ROS General: YES: Fatigue Cardiovascular: yes Other (Resolving chest pressure) Physical Exam General: mild distress HEENT: Atraumatic Lungs: Clear to auscultation Heart: Regular rate Abdomen: Normal bowel sounds Vitals VITALS Vital Signs Date Time Temp Pulse Resp B/P (MAP) Pulse Ox O2 Delivery O2 Flow Rate FiO2 01/31/21 17:13 92 139/88 01/31/21 15:49 97.9 20 99 Room Air 97.9 Labs Labs Laboratory Tests Test 01/30/21 19:32 01/30/21 19:53 01/30/21 19:58 01/31/21 00:08 White Blood Count 4.5 x10^3/uL (4.0-11.0) Red Blood Count 3.59 x10^6/uL (4.30-5.70) Hemoglobin 12.7 g/dL (13.0-17.5) Hematocrit 37.1 % (39.0-53.0) Mean Corpuscular Volume 104 fL (79-100) Mean Corpuscular Hemoglobin 35 pg (25-35) Mean Corpuscular Hemoglobin Concent 34 g/dL (31-37) Red Cell Distribution Width 13.5 % (11.5-14.5) Platelet Count 156 x10^3/uL (140-400) Neutrophils (%) (Auto) 60 % (31-73) Lymphocytes (%) (Auto) 26 % (24-48) Monocytes (%) (Auto) 12 % (0-9) Eosinophils (%) (Auto) 2 % (0-3) Basophils (%) (Auto) 1 % (0-3) Neutrophils # (Auto) 2.7 x10^3/uL (1.8-7.7) Lymphocytes # (Auto) 1.1 x10^3/uL (1.0-4.8) Monocytes # (Auto) 0.5 x10^3/uL (0.0-1.1) Eosinophils # (Auto) 0.1 x10^3/uL (0.0-0.7) Basophils # (Auto) 0.0 x10^3/uL (0.0-0.2) Prothrombin Time 12.5 SEC (11.7-14.0) Prothromb Time International Ratio 0.9 (0.8-1.1) Activated Partial Thromboplast Time 28 SEC (24-38) D-Dimer (Tonja) 0.63 ug/mlFEU (0.00-0.50) Sodium Level 140 mmol/L (136-145) Potassium Level 3.8 mmol/L (3.5-5.1) Chloride Level 103 mmol/L (98-107) Carbon Dioxide Level 30 mmol/L (21-32) Anion Gap 7 (6-14) Blood Urea Nitrogen 20 mg/dL (8-26) Creatinine 0.8 mg/dL (0.7-1.3) Estimated GFR (Cockcroft-Gault) 92.3 BUN/Creatinine Ratio 25 (6-20) Glucose Level 114 mg/dL (70-99) Calcium Level 9.0 mg/dL (8.5-10.1) Magnesium Level 1.9 mg/dL (1.8-2.4) Total Bilirubin 0.4 mg/dL (0.2-1.0) Aspartate Amino Transf (AST/SGOT) 17 U/L (15-37) Alanine Aminotransferase (ALT/SGPT) 8 U/L (16-63) Alkaline Phosphatase 63 U/L (46-116) Troponin I High Sensitivity 12 ng/L (4-75) 20 ng/L (4-75) KY-Dtm-Z-Type Natriuretic Peptide 1043 pg/mL (0-449) Total Protein 6.3 g/dL (6.4-8.2) Albumin 3.1 g/dL (3.4-5.0) Albumin/Globulin Ratio 1.0 (1.0-1.7) Lipase 33 U/L (73-393) Urine Collection Type Unknown Urine Color Yellow Urine Clarity Cloudy Urine pH 7.5 (<5.0-8.0) Urine Specific [place] 1.015 (1.000-1.030) Urine Protein Negative mg/dL (NEG-TRACE) Urine Glucose (UA) Negative mg/dL (NEG) Urine Ketones (Stick) Negative mg/dL (NEG) Urine Blood Negative (NEG) Urine Nitrite Negative (NEG) Urine Bilirubin Negative (NEG) Urine Urobilinogen Dipstick 1.0 mg/dL (0.2 mg/dL) Urine Leukocyte Esterase Negative (NEG) Urine RBC Rare /HPF (0-2) Urine WBC 0 /HPF (0-4) Urine Squamous Epithelial Cells Few /LPF Urine Amorphous Sediment Present /HPF Urine Bacteria 0 /HPF (0-FEW) Urine Mucus Slight /LPF SARS-CoV-2 RNA (MANAV) Negative (Negative) SARS-CoV-2 Antigen (Rapid) Negative (NEGATIVE) Test 01/31/21 09:35 Troponin I High Sensitivity 18 ng/L (4-75) Laboratory Tests Test 01/30/21 19:32 01/30/21 19:53 01/30/21 19:58 01/31/21 00:08 White Blood Count 4.5 x10^3/uL (4.0-11.0) Red Blood Count 3.59 x10^6/uL (4.30-5.70) Hemoglobin 12.7 g/dL (13.0-17.5) Hematocrit 37.1 % (39.0-53.0) Mean Corpuscular Volume 104 fL (79-100) Mean Corpuscular Hemoglobin 35 pg (25-35) Mean Corpuscular Hemoglobin Concent 34 g/dL (31-37) Red Cell Distribution Width 13.5 % (11.5-14.5) Platelet Count 156 x10^3/uL (140-400) Neutrophils (%) (Auto) 60 % (31-73) Lymphocytes (%) (Auto) 26 % (24-48) Monocytes (%) (Auto) 12 % (0-9) Eosinophils (%) (Auto) 2 % (0-3) Basophils (%) (Auto) 1 % (0-3) Neutrophils # (Auto) 2.7 x10^3/uL (1.8-7.7) Lymphocytes # (Auto) 1.1 x10^3/uL (1.0-4.8) Monocytes # (Auto) 0.5 x10^3/uL (0.0-1.1) Eosinophils # (Auto) 0.1 x10^3/uL (0.0-0.7) Basophils # (Auto) 0.0 x10^3/uL (0.0-0.2) Prothrombin Time 12.5 SEC (11.7-14.0) Prothromb Time International Ratio 0.9 (0.8-1.1) Activated Partial Thromboplast Time 28 SEC (24-38) D-Dimer (Tonja) 0.63 ug/mlFEU (0.00-0.50) Sodium Level 140 mmol/L (136-145) Potassium Level 3.8 mmol/L (3.5-5.1) Chloride Level 103 mmol/L (98-107) Carbon Dioxide Level 30 mmol/L (21-32) Anion Gap 7 (6-14) Blood Urea Nitrogen 20 mg/dL (8-26) Creatinine 0.8 mg/dL (0.7-1.3) Estimated GFR (Cockcroft-Gault) 92.3 BUN/Creatinine Ratio 25 (6-20) Glucose Level 114 mg/dL (70-99) Calcium Level 9.0 mg/dL (8.5-10.1) Magnesium Level 1.9 mg/dL (1.8-2.4) Total Bilirubin 0.4 mg/dL (0.2-1.0) Aspartate Amino Transf (AST/SGOT) 17 U/L (15-37) Alanine Aminotransferase (ALT/SGPT) 8 U/L (16-63) Alkaline Phosphatase 63 U/L (46-116) Troponin I High Sensitivity 12 ng/L (4-75) 20 ng/L (4-75) MD-Zxe-D-Type Natriuretic Peptide 1043 pg/mL (0-449) Total Protein 6.3 g/dL (6.4-8.2) Albumin 3.1 g/dL (3.4-5.0) Albumin/Globulin Ratio 1.0 (1.0-1.7) Lipase 33 U/L (73-393) Urine Collection Type Unknown Urine Color Yellow Urine Clarity Cloudy Urine pH 7.5 (<5.0-8.0) Urine Specific [place] 1.015 (1.000-1.030) Urine Protein Negative mg/dL (NEG-TRACE) Urine Glucose (UA) Negative mg/dL (NEG) Urine Ketones (Stick) Negative mg/dL (NEG) Urine Blood Negative (NEG) Urine Nitrite Negative (NEG) Urine Bilirubin Negative (NEG) Urine Urobilinogen Dipstick 1.0 mg/dL (0.2 mg/dL) Urine Leukocyte Esterase Negative (NEG) Urine RBC Rare /HPF (0-2) Urine WBC 0 /HPF (0-4) Urine Squamous Epithelial Cells Few /LPF Urine Amorphous Sediment Present /HPF Urine Bacteria 0 /HPF (0-FEW) Urine Mucus Slight /LPF SARS-CoV-2 RNA (MANAV) Negative (Negative) SARS-CoV-2 Antigen (Rapid) Negative (NEGATIVE) Test 01/31/21 09:35 Troponin I High Sensitivity 18 ng/L (4-75) Images Images Chest CT scan and checks x-ray as above. Assessment/Plan Assessment/Plan 1. Chest discomfort. Patient has a history of coronary disease as noted above. His EKG has shown no acute ischemic changes. Troponins have been normal x3 although his BNP is mildly elevated at 1043. Patient is feeling significantly better this morning. We will continue present medications and monitor. 2. Hypertension. Patient's Florinef has been discontinued. He is being started on Norvasc and carvedilol as tolerated. 3. Parkinson's disease. Continue present treatment. 4. History of multiple myeloma. Continue treatment. MARKY LEIGH MD Jan 31, 2021 17:37
--- NOTE | 2021-01-31 20:22 | CONS ---
DATE OF CONSULTATION: 01/31/2021 REFERRING PHYSICIAN: Jorge Alberto Sullivan MD REASON FOR CONSULTATION: Parkinson's disease. HISTORY OF PRESENT ILLNESS: The patient is a very pleasant 85-year-old man who has been followed by Dr. Asencio for Parkinson's disease. His is at bedside and also provided history. They believe he has had Parkinson's disease for about 3 years. They started working with Dr. 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 He has been maintained on carbidopa/levodopa 50/200 mg sustained release 3 times per day. The medication has generally controlled his symptoms fairly well. More recently, he has noted increased amounts of tremor. He had been experiencing severe hypotension and was placed on Florinef. He presented on this occasion with hypertension. His blood pressure medications have been added back and his Florinef has been discontinued. He has been experiencing some headache. PAST MEDICAL HISTORY: 1. Coronary artery disease. 2. History of congestive heart failure. 3. Hypertension. 4. History of myocardial infarction. 5. Hyperlipidemia. 6. History of Guillain-Mcville syndrome. 7. Parkinson's disease. 8. Diverticulosis. 9. History of hemorrhoids. 10. Multiple myeloma. 11. Prostate cancer, status post radiation and chemo. 12. Osteoarthritis. 13. Anxiety. 14. Glaucoma. 15. Diabetes. 16. Vasectomy. 17. Tonsillectomy. ALLERGIES: No known allergies to drugs. MEDICATIONS PRIOR TO ADMISSION: Acyclovir 800 mg twice per day, Alphagan 1 drop each eye twice a day, calcium with vitamin D, carbidopa/levodopa ER 50/200 mg 3 times a day, docusate sodium 100 mg as needed, iron sulfate 325 mg, Florinef 0.1 mg, latanoprost 1 drop each eye at night, multivitamin, omega-3 fatty acids, pantoprazole 40 mg, potassium chloride 40 mEq, simvastatin 20 mg, tamsulosin 0.4 mg extended release, timolol 0.5 mg twice per day in each eye and tramadol 50 mg 3 times per day as needed. FAMILY HISTORY: Noncontributory. SOCIAL HISTORY: He lives at home with his . He does not smoke tobacco or drink alcohol. REVIEW OF SYSTEMS: He has had some headache. There has been no change of vision or hearing. He has been able to chew and swallow. His nose is often stuffy. He has had some shortness of breath. He has not had a cough or cold. He is not complaining of chest or abdominal pain. He has some arthritic pain. He has not had fever or rash. No current gastrointestinal or genitourinary complaint. Does not currently complain of anxiety. He normally walks with a walker around the house. PHYSICAL EXAMINATION: VITAL SIGNS: Blood pressure was 188/107, pulse 88, respirations 18, temperature 98 degrees Fahrenheit orally. Oximetry was 98% on room air. His weight was 85.1 kilograms and height 70 inches. The calculated body mass index was 26.9. GENERAL: He was alert, awake and cooperative. NEUROLOGIC: Speech was fluent and clear. He had a good fund of recent and remote knowledge. Attention and concentration was intact. He appeared well-groomed and well-nourished. He was oriented. Examination of the cranial nerves revealed visual young were full to confrontation. Extraocular movements were intact, but his left eye was a lazy eye and drifted laterally. Pupils were 3 mm. He was not able to cooperate for funduscopic examination. Facial sensation was intact. The muscles of mastication and facial expression were powerful symmetrically. Hearing was intact to finger rub. The palate arched symmetrically and the tongue was midline with full range of motion. Sternocleidomastoid and trapezius were powerful. Muscle bulk was normal. Tone was slightly more rigid in the right arm than the left. He had great difficulty relaxing his legs. Power was full and symmetric in the upper and lower extremities. Reflexes 2/4 in the upper extremities and at the knees, but absent at the ankles. Toes were not upgoing. Coordination testing with [id number]-kq-[id number], gner-vh-rfyi, fine motor and rapid alternating movements fairly well performed with some bradykinesia with rapid tapping. The amplitude of the movement was less on the left hand than on the right. Sensory exam was intact to pain, light touch, proprioception, graphesthesia, cold thermal and vibration except for distal sensory shading in the feet. Vibration was better perceived at the mid calf. Proprioception was still intact. Sharp was still intact, but cold thermal was also shaded to above the ankle. There was no extinction to double simultaneous stimulation. Gait was not testable at this time. NECK: Auscultation of the carotid arteries did not reveal a bruit. HEART: Rhythm was regular, without a murmur. EXTREMITIES: Peripheral pulses were symmetric. There was no cyanosis. There was edema, especially of the left calf, ankle and foot more than the right. LABORATORY RESULTS: CBC was performed on 01/30/2021 revealing a normal white blood cell count and platelet count. Hemoglobin was diminished to 12.7 and hematocrit 37.1. Chemistries were performed on 01/30/2021 revealing normal electrolytes, BUN and creatinine. The GFR calculated at 92.3. Glucose was elevated at 114. Calcium was normal, but total protein was low at 6.3 and albumin at 3.1. Liver enzymes were not elevated. BNP was elevated at 1043. Lipase was not elevated. Troponin was not elevated. PT/INR was performed on 01/30/2021 and was 0.9 and APTT was 28. D-dimer was elevated at 0.63. Urinalysis was performed on 01/30/2021 and was negative. Serology with SARS-CoV-2 RNA as well as rapid antigen were both negative on 01/30/2021. DIAGNOSTIC RESULTS: Chest x-ray was performed on 01/30/2021 revealing mild basilar infiltrates, likely discoid atelectasis. Chest CTA was performed on 01/30/2021 revealing no evidence of pulmonary embolism. No significant findings. IMPRESSION: The patient is a very pleasant 85-year-old man with a several-year history of Parkinson's disease. He follows with Dr. Asencio as an outpatient. He noticed in the last 2 weeks, increased tremor. He does have mixed tremor. He clearly has a resting tremor, but there also appeared to be an essential tremor as well. It is possible the essential tremor may be more prominent due to his underlying health conditions. He has recently changed his chemotherapy for the multiple myeloma. He has fairly fluid movements, but I do not see much bradykinesia. I am concerned rapid changes have been made with respect to the blood pressure control. We will need to keep a very close eye on orthostatic blood pressures. RECOMMENDATIONS: I will not alter the Parkinson's medicines at this time. Dr. Asencio will return on 02/01 and will be able to follow up with the patient. I appreciate being involved in his care. SARY DR: MIGUEL/kizzy TID: [id number] CC: DONI ASENCIO MD
[2021-01-31] MEDS: TAMSULOSIN 0.4 MG CAP.ER.24H. PO SCH (21:17)
[2021-01-31] MEDS: LATANOPROST 0.005% OPHTH SOLUTION 2.5ML BOTTLE. OU SCH (21:18)
[2021-02-01 02:37] VITALS: BP 134/76
[2021-02-01 06:28] VITALS: BP 149/89
--- NOTE | 2021-02-01 08:18 | PDOC ---
Provider Note Date of Service: DATE: 02/01/21 TIME: 08:17 Provider Note bp better back on amlo and coreg, and SCHWAB and chest pain gone- still off florinef re same reason- will follow today, modify meds as needed, likely dc in am Justifications for Admission Other Justification TAWNY GUDINO MD Feb 01, 2021 08:18
[2021-02-01] MEDS: CARBIDOPA/LEVODOPA CR 25/100MG TABLET.SA. PO SCH ×3 (08:28→22:45)
[2021-02-01] MEDS: POTASSIUM CHLORIDE 20 MEQ TABLET.ER. PO SCH (08:28)
[2021-02-01] MEDS: CARVEDILOL 6.25 MG TABLET. PO SCH ×2 (08:32→17:51)
[2021-02-01] MEDS: ACYCLOVIR 200 MG CAPSULE. PO SCH ×2 (08:32→22:44)
[2021-02-01] MEDS: PANTOPRAZOLE 40 MG TABLET.DR. PO SCH (08:33)
[2021-02-01] MEDS: BRIMONIDINE 0.2% OPHTH SOLUTION 5ML BOTTLE. OU SCH ×2 (08:35→21:00)
[2021-02-01] MEDS: TIMOLOL 0.5% OPHTH SOLUTION 5ML BOTTLE. OU SCH ×2 (08:35→21:00)
[2021-02-01 11:16] VITALS: BP 138/81
--- NOTE | 2021-02-01 11:42 | PDOC ---
PROGRESS NOTES Date of Service DATE: 02/01/21 TIME: 11:37 Assessment Acute issue is headache, chest pain and generalized discomfort due to uncontrolled hypertension. He Parkinson's, increased tremor, may have mixed tremor with a component of essential tremor. I have followed him in the office for nearly 10 years History of Guillain-Robbins Chemotherapy-related neuropathy, multiple mild He was having syncope and orthostatic hypotension Plan Continue current Parkinson's regimen Control of blood pressure Cardiology is also following Discussed with Subjective Feels much better today Objective Vital Signs Date Time Temp Pulse Resp B/P (MAP) Pulse Ox O2 Delivery O2 Flow Rate FiO2 02/01/21 11:16 98.2 90 19 138/81 (100) 97 Room Air 98.2 Intake and Output 02/01/21 07:00 Intake Total 1000 ml Output Total 350 ml Balance 650 ml Intake Oral 1000 ml Output Urine Total 350 ml PHYSICAL EXAM Alert. Oriented to time, place and person. PERRL. EOMI. CN: no focal findings. Muscle tone: normal. Muscle strength: 4/5 DTR: 0+ Plantar reflex: Flexor Gait: not examined in bed. Sensory exam: Stocking loss. No cerebellar signs elicited. Mild resting tremor, no postural tremor. Has masked facies, bradykinesia, cogwheel rigidity Review of Relevant I have reviewed the following items justine (where applicable) has been applied. Labs Laboratory Tests Test 01/30/21 19:32 01/30/21 19:53 01/30/21 19:58 01/31/21 00:08 White Blood Count 4.5 x10^3/uL (4.0-11.0) Red Blood Count 3.59 x10^6/uL (4.30-5.70) Hemoglobin 12.7 g/dL (13.0-17.5) Hematocrit 37.1 % (39.0-53.0) Mean Corpuscular Volume 104 fL (79-100) Mean Corpuscular Hemoglobin 35 pg (25-35) Mean Corpuscular Hemoglobin Concent 34 g/dL (31-37) Red Cell Distribution Width 13.5 % (11.5-14.5) Platelet Count 156 x10^3/uL (140-400) Neutrophils (%) (Auto) 60 % (31-73) Lymphocytes (%) (Auto) 26 % (24-48) Monocytes (%) (Auto) 12 % (0-9) Eosinophils (%) (Auto) 2 % (0-3) Basophils (%) (Auto) 1 % (0-3) Neutrophils # (Auto) 2.7 x10^3/uL (1.8-7.7) Lymphocytes # (Auto) 1.1 x10^3/uL (1.0-4.8) Monocytes # (Auto) 0.5 x10^3/uL (0.0-1.1) Eosinophils # (Auto) 0.1 x10^3/uL (0.0-0.7) Basophils # (Auto) 0.0 x10^3/uL (0.0-0.2) Prothrombin Time 12.5 SEC (11.7-14.0) Prothromb Time International Ratio 0.9 (0.8-1.1) Activated Partial Thromboplast Time 28 SEC (24-38) D-Dimer (Tonja) 0.63 ug/mlFEU (0.00-0.50) Sodium Level 140 mmol/L (136-145) Potassium Level 3.8 mmol/L (3.5-5.1) Chloride Level 103 mmol/L (98-107) Carbon Dioxide Level 30 mmol/L (21-32) Anion Gap 7 (6-14) Blood Urea Nitrogen 20 mg/dL (8-26) Creatinine 0.8 mg/dL (0.7-1.3) Estimated GFR (Cockcroft-Gault) 92.3 BUN/Creatinine Ratio 25 (6-20) Glucose Level 114 mg/dL (70-99) Calcium Level 9.0 mg/dL (8.5-10.1) Magnesium Level 1.9 mg/dL (1.8-2.4) Total Bilirubin 0.4 mg/dL (0.2-1.0) Aspartate Amino Transf (AST/SGOT) 17 U/L (15-37) Alanine Aminotransferase (ALT/SGPT) 8 U/L (16-63) Alkaline Phosphatase 63 U/L (46-116) Troponin I High Sensitivity 12 ng/L (4-75) 20 ng/L (4-75) NP-Mos-X-Type Natriuretic Peptide 1043 pg/mL (0-449) Total Protein 6.3 g/dL (6.4-8.2) Albumin 3.1 g/dL (3.4-5.0) Albumin/Globulin Ratio 1.0 (1.0-1.7) Lipase 33 U/L (73-393) Urine Collection Type Unknown Urine Color Yellow Urine Clarity Cloudy Urine pH 7.5 (<5.0-8.0) Urine Specific [place] 1.015 (1.000-1.030) Urine Protein Negative mg/dL (NEG-TRACE) Urine Glucose (UA) Negative mg/dL (NEG) Urine Ketones (Stick) Negative mg/dL (NEG) Urine Blood Negative (NEG) Urine Nitrite Negative (NEG) Urine Bilirubin Negative (NEG) Urine Urobilinogen Dipstick 1.0 mg/dL (0.2 mg/dL) Urine Leukocyte Esterase Negative (NEG) Urine RBC Rare /HPF (0-2) Urine WBC 0 /HPF (0-4) Urine Squamous Epithelial Cells Few /LPF Urine Amorphous Sediment Present /HPF Urine Bacteria 0 /HPF (0-FEW) Urine Mucus Slight /LPF SARS-CoV-2 RNA (MANAV) Negative (Negative) SARS-CoV-2 Antigen (Rapid) Negative (NEGATIVE) Test 01/31/21 09:35 Troponin I High Sensitivity 18 ng/L (4-75) Medications Current Medications Fentanyl Citrate (Fentanyl 2ml Vial) 50 mcg 1X ONCE IV Last administered on 01/30/21at 20:45; Start 01/30/21 at 20:30; Stop 01/30/21 at 20:31; Status DC Sodium Chloride 1,000 ml @ 1,000 mls/hr 1X ONCE IV Last administered on 01/30/21at 20:45; Start 01/30/21 at 21:00; Stop 01/30/21 at 21:59; Status DC Iohexol (Omnipaque 350 Mg/ml) 100 ml 1X ONCE IV Last administered on 01/30/21at 20:41; Start 01/30/21 at 21:00; Stop 01/30/21 at 21:01; Status DC Info (CONTRAST GIVEN -- Rx MONITORING) 1 each PRN DAILY PRN MC SEE COMMENTS; Start 01/30/21 at 20:15; Stop 02/01/21 at 20:14 Ondansetron HCl (Zofran) 4 mg PRN Q8HRS PRN IVP NAUSEA/VOMITING; Start 01/30/21 at 21:30; Stop 01/31/21 at 21:29; Status DC Fentanyl Citrate (Fentanyl 2ml Vial) 50 mcg PRN Q2HR PRN IVP PAIN Last administered on 01/31/21at 21:17; Start 01/30/21 at 21:30 Docusate Sodium (Colace) 100 mg PRN DAILY PRN PO HARD STOOLS; Start 01/31/21 at 10:00 Fludrocortisone Acetate (Florinef) 0.1 mg DAILY PO ; Start 01/31/21 at 11:00; Stop 01/31/21 at 10:17; Status DC Latanoprost (Xalatan) 1 drop QHS OU Last administered on 01/31/21at 21:18; Start 01/31/21 at 21:00 Pantoprazole Sodium (Protonix) 40 mg DAILYAC PO Last administered on 02/01/21at 08:33; Start 01/31/21 at 11:00 Potassium Chloride (Klor-Con) 40 meq DAILY PO Last administered on 02/01/21at 08:28; Start 01/31/21 at 11:00 Simvastatin (Zocor) 20 mg DAILY PO Last administered on 01/31/21at 10:39; Start 01/31/21 at 11:00; Stop 02/01/21 at 10:29; Status DC Tamsulosin HCl (Flomax) 0.4 mg HS PO Last administered on 01/31/21at 21:17; Start 01/31/21 at 21:00 Tramadol HCl (Ultram) 50 mg PRN TID PRN PO MODERATE PAIN; Start 01/31/21 at 10:00 Acyclovir (Zovirax) 800 mg BID PO Last administered on 02/01/21at 08:32; Start 01/31/21 at 11:00 Brimonidine Tartrate (Alphagan) 1 drop BID OU Last administered on 02/01/21at 08:35; Start 01/31/21 at 11:00 Carbidopa/Levodopa (Sinemet Cr) 2 tab.sa TID PO Last administered on 02/01/21at 08:28; Start 01/31/21 at 14:00 Timolol Maleate (Timoptic 0.5% [facility]) 1 drop BID OU Last administered on 02/01/21at 08:35; Start 01/31/21 at 11:00 Tramadol HCl (Ultram) 100 mg PRN TID PRN PO SEVERE PAIN; Start 01/31/21 at 10:00 Amlodipine Besylate (Norvasc) 5 mg DAILY PO Last administered on 02/01/21at 08:32; Start 01/31/21 at 10:30 Carvedilol (Coreg) 6.25 mg BIDWMEALS PO Last administered on 02/01/21at 08:32; Start 01/31/21 at 10:30 Simvastatin (Zocor) 20 mg HS PO ; Start 02/01/21 at 21:00 Active Scripts Active Reported Pantoprazole Sodium (Pantoprazole Sodium) 40 Mg Tablet.dr 40 Mg PO DAILYAC Potassium Chloride (Potassium Chloride) 20 Meq Tablet.er 40 Meq PO DAILY Fludrocortisone Acetate 0.1 Mg Tablet 1 Tab PO DAILY Carbidopa-Levo Er 50-200 Tab (Carbidopa/Levodopa) 1 Each Tablet.er 1 Each PO TID Acyclovir 800 Mg Tablet 800 Mg PO BID Tramadol Hcl 50 Mg Tablet 50 Mg PO TID PRN Feosol (Ferrous Sulfate) 325 Mg Tablet 1 Tab PO DAILY 30 Days Fish Oil 1,000 Mg Capsule (Preston-3 Fatty Acids/Fish Oil) 1 Each Capsule 1 Each PO DAILY Latanoprost 2.5 Ml Drops 1 Drop EACHEYE QHS Docusate Sodium 100 Mg Capsule 1 Cap PO DAILY PRN Timoptic 0.5% Ocudose Drop (Timolol Maleate/Pf) 1 Each Droperette 1 Each OP BID Flomax (Tamsulosin Hcl) 0.4 Mg Cap.er.24h 0.4 Mg PO HS Calcium 600 + Vit D 200 Tablet (Calcium Carbonate/Vitamin D3) 1 Each Tablet 2 Each PO DAILY Daily Multiple Vitamin (Multivitamin) 1 Each Tablet 1 Each PO DAILY Alphagan P (Brimonidine Tartrate) 5 Ml Drops 1 Drop EACHEYE BID Simvastatin 20 Mg Tablet 20 Mg PO DAILY Vitals/I & O Vital Sign - Last 24 Hours 01/31/21 01/31/21 01/31/21 01/31/21 11:42 15:49 17:13 19:23 Temp 98.0 97.9 97.8 98.0 97.9 97.8 Pulse 88 86 92 100 Resp 18 20 16 B/P (MAP) 188/107 (134) 149/94 (112) 139/88 130/75 (93) Pulse Ox 98 99 98 O2 Delivery Room Air Room Air Room Air 01/31/21 01/31/21 01/31/21 01/31/21 20:20 21:17 21:47 22:39 Temp 98.6 98.6 Pulse 74 Resp 16 B/P (MAP) 140/81 (100) Pulse Ox 98 100 100 O2 Delivery Room Air Room Air Room Air Room Air 02/01/21 02/01/21 02/01/21 02/01/21 02:37 06:28 08:00 08:32 Temp 98.5 98.2 98.5 98.2 Pulse 87 78 94 Resp 18 16 B/P (MAP) 134/76 (95) 149/89 (109) 149/89 Pulse Ox 95 100 O2 Delivery Room Air Room Air Room Air 02/01/21 02/01/21 08:32 11:16 Temp 98.2 98.2 Pulse 109 90 Resp 19 B/P (MAP) 149/89 138/81 (100) Pulse Ox 97 O2 Delivery Room Air Intake and Output 01/31/21 01/31/21 02/01/21 15:00 23:00 07:00 Intake Total 300 ml 700 ml 0 ml Output Total 150 ml 200 ml Balance 150 ml 500 ml 0 ml Justicifation of Admission Dx: Justifications for Admission: Justification of Admission Dx: N/A DONI ASENCIO MD Feb 01, 2021 11:42
[2021-02-01 14:50] VITALS: BP 116/74
--- NOTE | 2021-02-01 15:28 | NUR ---
SS following for discharge planning. SS reviewed pt chart and discussed with pt RN. Pt is from home with spouse and is currently on room air. COVID19 negative. Neurology and Cardiology following. PT/OT ordered. SS will continue to follow for discharge planning.
--- NOTE | 2021-02-01 16:38 | CARD ---
MR#: [id number] Date of Study: 02/01/2021 Ordering Physician: ALESSIO RAMIREZ, Referring Physician: ALESSIO RAMIREZ, Zo: Jesus Martino [facility] APPROVED REPORT EXAM: Two-dimensional and M-mode echocardiogram with Doppler and color Doppler. Other Information Quality : FairHR: 83bpm Rhythm : NSR INDICATION Chest Pain RISK FACTORS Hypertension Previous UT, Coronary artery disease, Multiple Myeloma 2D DIMENSIONS Left Atrium(2D)5.3 (1.6-4.0cm)IVSd1.2 (0.7-1.1cm) Aortic Root(2D)3.7 (2.0-3.7cm)LVDd5.1 (3.9-5.9cm) LVOT Diameter2.1 (1.8-2.4cm)PWd1.2 (0.7-1.1cm) LVDs3.7 (2.5-4.0cm)FS (%) 27.2 % SV64.3 mlLVEF(%)52.8 (>50%) Aortic Valve AoV Peak Carloz.132.0cm/sAoV VTI19.5cm AO Peak GR.7.0mmHgLVOT Peak Carloz.104.6cm/s LVOT VTI 17.94cmAO Mean GR.4mmHg PAULY (VMAX)2.88rj9VJG (VTI)3.26cm2 Mitral Valve MV E Cejmaejn06.9cm/sMV DECEL AVIG158pu MV A Rujicizk459.2cm/sMV ZGT95ks E/A Ratio0.5MVA (PHT)3.48cm2 TDI E/Lateral E'11.5E/Medial E'14.6 Pulmonary Valve PV Peak Xhfspjew191.6cm/sPV Peak Grad.5mmHg Tricuspid Valve TR P. Etslwhgt368cr/sTR Peak Gr.19mmHg Pulmonary Vein S1 Kvrldknp55.8cm/sD2 Axbjgmqh62.7cm/s LEFT VENTRICLE The left ventricle is normal size. There is normal left ventricular wall thickness. The left ventricu lar systolic function is mildly impaired. The Ejection Fraction is 40-45% Transmitral Doppler flow pa ttern is Grade I-abnormal relaxation pattern. No left ventricle thrombus noted on this study. There i s no ventricular septal defect visualized. There is no left ventricular aneurysm. There is no mass no aliyah in the left ventricle. RIGHT VENTRICLE The right ventricle is normal size. There is normal right ventricular wall thickness. The right ventr icular systolic function is normal. ATRIA The left atrium is mildly dilated. The right atrium size is normal. The interatrial septum is intact with no evidence for an atrial septal defect or patent foramen ovale as noted on 2-D or Doppler imagi ng. AORTIC VALVE The aortic valve is calcified but opens well. Doppler and Color Flow revealed mild aortic regurgitati on. There is no significant aortic valvular stenosis. There is no aortic valvular vegetation. MITRAL VALVE The mitral valve is normal in structure and function. There is no mitral valve stenosis. Doppler and Color-flow revealed trace mitral regurgitation. TRICUSPID VALVE The tricuspid valve is normal in structure and function. Doppler and Color Flow revealed no tricuspid valve regurgitation noted. There is no tricuspid valve stenosis. PULMONIC VALVE The pulmonary valve is normal in structure and function. Doppler and Color Flow revealed no pulmonic valvular regurgitation. There is no pulmonic valvular stenosis. GREAT VESSELS The aortic root is borderline dilated at (3.8 cm) The ascending aorta is normal in size. The IVC is n ot well seen due to limited subcostal views. PERICARDIAL EFFUSION There is no evidence of significant pericardial effusion. Critical Notification Critical Value: No <Conclusion> The left ventricular systolic function is mildly impaired. The Ejection Fraction is 40-45% Transmitral Doppler flow pattern is Grade I-abnormal relaxation pattern. Trace mitral regurgitation. There is no evidence of significant pericardial effusion. Signed by : Bony Lakhani, Electronically Approved : 02/01/2021 16:38:32
--- NOTE | 2021-02-01 16:41 | PDOC ---
CARDIO Progress Notes Date and Time Date of Service 02/01/21 Time of Evaluation 1210 Subjective Subjective: No Chest Pain, No shortness of breath, No Palpitations Vitals Vitals Vital Signs Date Time Temp Pulse Resp B/P (MAP) Pulse Ox O2 Delivery O2 Flow Rate FiO2 02/01/21 14:50 97.8 87 18 116/74 (88) 97 Room Air 97.8 Weight Weight [ ] Input and Output Intake and Output Intake and Output 02/01/21 06:59 Intake Total 1000 ml Output Total 350 ml Balance 650 ml Intake Oral 1000 ml Output Urine Total 350 ml Physical Exam HEENT: Neck Supple W Full Motion Chest: Symmetric LUNGS: Clear to Auscultation Heart: RRR Abdomen: Soft N/T Neurology: alert, oriented, follow commands Assessment Assessment 1. Chest pain, atypical. AMI ruled out 2. Hypertensive urgency; Florinef discontinued. Coreg and amlodipine resumed. controlled overall 3. Possible autonomic dysfunction with associated Parkinsons 4. Hx of MM and Prostate CA 5. CAD: reported past stent, clinically stable 6. Chronic diastolic/systolic CHF: clinically compensated. Echo with LVEF 45% 7. Hyperlipidemia; statin 9. Diabetes, II Recommendations Limited echo Secondary prevention measures. Lasix PRN Monitor BP trends Consider outpatient ischemic evaluation Justicifation of Admission Dx: Justifications for Admission: Justification of Admission Dx: N/A ALESSIO RAMIREZ APRN Feb 01, 2021 16:41
--- NOTE | 2021-02-01 16:43 | PDOC ---
PROGRESS NOTES Date of Service: DATE: 02/01/21 TIME: 16:39 Subjective Subjective Denied any chest pain today. Feeling better. Objective Objective Vital Signs Date Time Temp Pulse Resp B/P (MAP) Pulse Ox O2 Delivery O2 Flow Rate FiO2 02/01/21 14:50 97.8 87 18 116/74 (88) 97 Room Air 97.8 Intake and Output 02/01/21 07:00 Intake Total 1000 ml Output Total 350 ml Balance 650 ml Intake Oral 1000 ml Output Urine Total 350 ml Physical Exam Abdomen: Normal bowel sounds Heart: Regular rate General: No acute distress HEENT: Atraumatic Lungs: Clear to auscultation Neck: Supple Neuro: Normal speech Psych/Mental Status: Mood NL Assessment Assessment 1. Chest pain with atypical features, currently resolved. Myocardial infarction has been ruled out. Cardiac catheterization in January 2020 did not show any significant coronary artery stenosis. 2D echo showed mild left ventricular systolic dysfunction with EF 40 to 45%, similar to prior 2D echocardiogram. He is clinically well compensated. 2. Hypertension: Controlled 3. Hyperlipidemia: Continue statin therapy 4. Parkinson disease: Neurology following 5. Multiple myeloma: Per oncology team Comment Review of Relevant I have reviewed the following items justine (where applicable) has been applied. Medications Current Medications Latanoprost (Xalatan) 1 drop QHS OU Last administered on 01/31/21at 21:18; Start 01/31/21 at 21:00 Simvastatin (Zocor) 20 mg HS PO ; Start 02/01/21 at 21:00 Tamsulosin HCl (Flomax) 0.4 mg HS PO Last administered on 01/31/21at 21:17; Start 01/31/21 at 21:00 Vitals/I & O Vital Sign - Last 24 Hours 01/31/21 01/31/21 01/31/21 01/31/21 17:13 19:23 20:20 21:17 Temp 97.8 97.8 Pulse 92 100 Resp 16 B/P (MAP) 139/88 130/75 (93) Pulse Ox 98 98 O2 Delivery Room Air Room Air Room Air 01/31/21 01/31/21 02/01/21 02/01/21 21:47 22:39 02:37 06:28 Temp 98.6 98.5 98.2 98.6 98.5 98.2 Pulse 74 87 78 Resp 16 18 16 B/P (MAP) 140/81 (100) 134/76 (95) 149/89 (109) Pulse Ox 100 100 95 100 O2 Delivery Room Air Room Air Room Air Room Air 02/01/21 02/01/21 02/01/21 02/01/21 08:00 08:32 08:32 11:16 Temp 98.2 98.2 Pulse 94 109 90 Resp 19 B/P (MAP) 149/89 149/89 138/81 (100) Pulse Ox 97 O2 Delivery Room Air Room Air 02/01/21 14:50 Temp 97.8 97.8 Pulse 87 Resp 18 B/P (MAP) 116/74 (88) Pulse Ox 97 O2 Delivery Room Air Intake and Output 01/31/21 01/31/21 02/01/21 15:00 23:00 07:00 Intake Total 300 ml 700 ml 0 ml Output Total 150 ml 200 ml Balance 150 ml 500 ml 0 ml RYAN BUCNH MD Feb 01, 2021 16:43
[2021-02-01 19:24] VITALS: BP 122/70
[2021-02-01] MEDS ORDERED: SIMVASTATIN 20 MG TABLET PO SCH (21:00)
[2021-02-01] MEDS: TAMSULOSIN 0.4 MG CAP.ER.24H. PO SCH (22:44)
[2021-02-01] MEDS: LATANOPROST 0.005% OPHTH SOLUTION 2.5ML BOTTLE. OU SCH (22:46)
[2021-02-01 22:56] VITALS: BP 137/98
[2021-02-02 03:19] VITALS: BP 135/77
[2021-02-02 07:00] VITALS: BP 161/94
--- NOTE | 2021-02-02 08:05 | SNU/HH DC ---
DISCHARGE WITH HOME HEALTH DISCHARGE INFORMATION: Condition on Discharge: Stable CODE STATUS: Code Status: Full HOME HEALTH: Face to Face: I certify this patient is under my care and that I, or a nurse practitioner or physician's assistant financial accountant working with me, had a face to face encounter that meets the physician face to face encounter requirements with this patient on []. Medical Complications: Falls RN For Eval/Treatment: Yes Physical Therapy For: Evalulation/Treatment Occupational Therapy For: Evaluation/Treatment Home Health Aide For: Self-care Pt Meets Homebound Status: Unsteady balance w/ amb, POST DISCHARGE ORDERS: Activity Instructions for Disc: Bedrest today Weight Bearing Status after Di: As tolerated DIET AFTER DISCHARGE: Cardiac Wound/Incision Care: Keep wound/cast CDI CHECKS AFTER DISCHARGE: Checks after discharge: Check blood press - daily TREATMENT/EQUIPMENT ORDERS: Adaptive Equipment Issued: None CERTIFICATION STATEMENT: Certification Statement: Certification Statement: Based on the above finding, I certify that this patient is confined to the home and needs intermittent senior care care, physical therapy and/or speech therapy, or continues to need occupational therapy.~ This patient is under my care, and I have initiated the establishment of the plan of care.~ This patient will be followed by myself or a community physician who will periodically review the plan of care. Home Meds Reported Medications Pantoprazole Sodium (PANTOPRAZOLE SODIUM ) 40 Mg Tablet.dr, 40 MG PO DAILYAC for GERD, TAB 01/31/21 Potassium Chloride (POTASSIUM CHLORIDE ) 20 Meq Tablet.er, 40 MEQ PO DAILY for SUPPLEMENT, TAB.SR 01/31/21 Fludrocortisone Acetate (FLUDROCORTISONE ACETATE) 0.1 Mg Tablet, 1 TAB PO DAILY for ORTHOSTATIC, #90 TAB 1 Refill 01/31/21 Carbidopa/Levodopa (CARBIDOPA-LEVO ER 50-200 TAB) 1 Each Tablet.er, 1 EACH PO TID for PARKINSONS, TAB.SR 01/31/21 Acyclovir (ACYCLOVIR) 800 Mg Tablet, 800 MG PO BID for PREVENT SHINGLES, TAB 01/31/21 Tramadol Hcl (TRAMADOL HCL) 50 Mg Tablet, 50 MG PO TID PRN for PAIN, TAB 0 Refills 01/31/21 Ferrous Sulfate (FEOSOL) 325 Mg Tablet, 1 TAB PO DAILY for anemia for 30 Days, #30 TAB 0 Refills 07/23/20 Ona-3 Fatty Acids/Fish Oil (FISH OIL 1,000 MG CAPSULE) 1 Each Capsule, 1 EACH PO DAILY for vitamin, CAP 06/15/18 Latanoprost (LATANOPROST) 2.5 Ml Drops, 1 DROP EACHEYE QHS for Eye, #2.5 ML 3 Refills 05/17/18 Docusate Sodium (DOCUSATE SODIUM) 100 Mg Capsule, 1 CAP PO DAILY PRN for CONSTIPATION, #30 CAP 12/07/17 Timolol Maleate/Pf (TIMOPTIC 0.5% OCUDOSE DROP) 1 Each Droperette, 1 EACH OP BID 11/28/15 Tamsulosin Hcl (FLOMAX) 0.4 Mg Cap.er.24h, 0.4 MG PO HS, TAB 11/28/15 Calcium Carbonate/Vitamin D3 (CALCIUM 600 + VIT D 200 TABLET) 1 Each Tablet, 2 EACH PO DAILY for SUPPLEMENT 11/28/15 Multivitamin (DAILY MULTIPLE VITAMIN) 1 Each Tablet, 1 EACH PO DAILY 11/28/15 Brimonidine Tartrate (ALPHAGAN P) 5 Ml Drops, 1 DROP EACHEYE BID 10/16/15 Simvastatin (SIMVASTATIN) 20 Mg Tablet, 20 MG PO DAILY 08/19/13 Discontinued Reported Medications Metoprolol Succinate (METOPROLOL SUCCINATE ( XL )) 25 Mg Tab.er.24h, 0.5 TAB PO DAILY for cardiac, #30 TAB 5 Refills 07/24/20 Acyclovir (ACYCLOVIR) 200 Mg Capsule, 1 CAP PO BID for prevent shingles, #25 CAP 07/23/20 Carbidopa/Levodopa (SINEMET 25-100 MG TABLET) 1 Each Tablet, 2 TAB PO TID for Parkinsons, TAB 05/17/18 Citalopram Hydrobromide (CITALOPRAM HBR) 20 Mg Tablet, 20 MG PO DAILY 08/19/13 TAWNY GUDINO MD Feb 02, 2021 08:05
--- NOTE | 2021-02-02 08:08 | PDOC ---
Provider Note Date of Service: DATE: 02/02/21 TIME: 08:06 Provider Note [id number] Justifications for Admission Other Justification TAWNY GUDINO MD Feb 02, 2021 08:08
--- NOTE | 2021-02-02 09:30 | DS ---
DATE OF DISCHARGE: 02/02/2021 HOSPITAL SUMMARY: An 85-year-old white male with multiple medical problems, came in with increasing headaches, chest pressure and pain. Blood pressure was very high. All the labs including troponin were unremarkable. Chest x-ray was clear as well. He was taken off the Florinef for his orthostatic hypotension and amlodipine and carvedilol were resumed that had been stopped in the past. Blood pressure came down nicely, his headache has stayed as is his chest pain and he is comfortable to be followed as an outpatient at this point. He was seen by Neurology for his tremor and by Cardiology as well while in the hospital. FINAL DIAGNOSIS: Accelerated hypertension secondary to Florinef usage. OPERATIONS, PROCEDURES, COMPLICATIONS: None. CONSULTATION: Dr. Christensen and Dr. Lakhani. DISPOSITION: Stay off Florinef, stay on amlodipine 5 mg and carvedilol 6.25 mg twice a day for now. Meds may be to be adjusted as he did develop hypotension in the past, has Parkinson's disease with his autonomic neuropathy. Prognosis is guarded. He remains a full code. CAM/BRIAN/CALIN DR: CAM/kizzy TID: [id number]
[2021-02-02] MEDS: PANTOPRAZOLE 40 MG TABLET.DR. PO SCH (09:44)
[2021-02-02] MEDS: ACYCLOVIR 200 MG CAPSULE. PO SCH (09:44)
[2021-02-02] MEDS: CARBIDOPA/LEVODOPA CR 25/100MG TABLET.SA. PO SCH (09:45)
[2021-02-02] MEDS: POTASSIUM CHLORIDE 20 MEQ TABLET.ER. PO SCH (09:45)
[2021-02-02] MEDS: CARVEDILOL 6.25 MG TABLET. PO SCH (09:45)
[2021-02-02] MEDS: TIMOLOL 0.5% OPHTH SOLUTION 5ML BOTTLE. OU SCH (09:45)
[2021-02-02] MEDS: BRIMONIDINE 0.2% OPHTH SOLUTION 5ML BOTTLE. OU SCH (09:46)
--- NOTE | 2021-02-02 10:29 | PDOC ---
PROGRESS NOTES Date of Service DATE: 02/02/21 TIME: 10:28 Assessment Acute issue is headache, chest pain and generalized discomfort due to uncontrolled hypertension. These have resolved Parkinson's, increased tremor, may have mixed tremor with a component of essential tremor. I have followed him in the office for nearly 10 years History of Guillain-Robbins Chemotherapy-related neuropathy, multiple mild He was having syncope and orthostatic hypotension requiring midodrine and Florinef, but now needs tighter blood pressure control. I warn patient that blood pressure could fluctuate downward again Plan Continue current Parkinson's regimen Control of blood pressure Cardiology is also following Okay for discharge Follow-up with me as scheduled in December of next year Subjective Feels much better, wants to go home Objective Vital Signs Date Time Temp Pulse Resp B/P (MAP) Pulse Ox O2 Delivery O2 Flow Rate FiO2 02/02/21 09:45 94 161/94 02/02/21 08:00 Room Air 02/02/21 07:00 97.6 24 92 97.6 Intake and Output 02/02/21 07:00 Intake Total 860 ml Output Total 1100 ml Balance -240 ml Intake Oral 860 ml Output Urine Total 1100 ml # Bowel Movements 2 PHYSICAL EXAM Alert. Oriented to time, place and person. PERRL. EOMI. CN: no focal findings. Muscle tone: normal. Muscle strength: 4/5 DTR: 0+ Plantar reflex: Flexor Gait: not examined in bed. Sensory exam: Stocking loss. No cerebellar signs elicited. Mild resting tremor, no postural tremor. Has masked facies, bradykinesia, cogwheel rigidity Review of Relevant I have reviewed the following items justine (where applicable) has been applied. Medications Current Medications Fentanyl Citrate (Fentanyl 2ml Vial) 50 mcg 1X ONCE IV Last administered on 01/30/21at 20:45; Start 01/30/21 at 20:30; Stop 01/30/21 at 20:31; Status DC Sodium Chloride 1,000 ml @ 1,000 mls/hr 1X ONCE IV Last administered on 01/30/21at 20:45; Start 01/30/21 at 21:00; Stop 01/30/21 at 21:59; Status DC Iohexol (Omnipaque 350 Mg/ml) 100 ml 1X ONCE IV Last administered on 01/30/21at 20:41; Start 01/30/21 at 21:00; Stop 01/30/21 at 21:01; Status DC Info (CONTRAST GIVEN -- Rx MONITORING) 1 each PRN DAILY PRN MC SEE COMMENTS; Start 01/30/21 at 20:15; Stop 02/01/21 at 20:14; Status DC Ondansetron HCl (Zofran) 4 mg PRN Q8HRS PRN IVP NAUSEA/VOMITING; Start 01/30/21 at 21:30; Stop 01/31/21 at 21:29; Status DC Fentanyl Citrate (Fentanyl 2ml Vial) 50 mcg PRN Q2HR PRN IVP PAIN Last administered on 01/31/21at 21:17; Start 01/30/21 at 21:30 Docusate Sodium (Colace) 100 mg PRN DAILY PRN PO HARD STOOLS; Start 01/31/21 at 10:00 Fludrocortisone Acetate (Florinef) 0.1 mg DAILY PO ; Start 01/31/21 at 11:00; Stop 01/31/21 at 10:17; Status DC Latanoprost (Xalatan) 1 drop QHS OU Last administered on 02/01/21at 22:46; Start 01/31/21 at 21:00 Pantoprazole Sodium (Protonix) 40 mg DAILYAC PO Last administered on 02/02/21at 09:44; Start 01/31/21 at 11:00 Potassium Chloride (Klor-Con) 40 meq DAILY PO Last administered on 02/02/21at 09:45; Start 01/31/21 at 11:00 Simvastatin (Zocor) 20 mg DAILY PO Last administered on 01/31/21at 10:39; Start 01/31/21 at 11:00; Stop 02/01/21 at 10:29; Status DC Tamsulosin HCl (Flomax) 0.4 mg HS PO Last administered on 02/01/21at 22:44; Start 01/31/21 at 21:00 Tramadol HCl (Ultram) 50 mg PRN TID PRN PO MODERATE PAIN; Start 01/31/21 at 10:00 Acyclovir (Zovirax) 800 mg BID PO Last administered on 02/02/21at 09:44; Start 01/31/21 at 11:00 Brimonidine Tartrate (Alphagan) 1 drop BID OU Last administered on 02/02/21at 09:46; Start 01/31/21 at 11:00 Carbidopa/Levodopa (Sinemet Cr) 2 tab.sa TID PO Last administered on 02/02/21at 09:45; Start 01/31/21 at 14:00 Timolol Maleate (Timoptic 0.5% Ophth) 1 drop BID OU Last administered on 02/02/21at 09:45; Start 01/31/21 at 11:00 Tramadol HCl (Ultram) 100 mg PRN TID PRN PO SEVERE PAIN; Start 01/31/21 at 10:00 Amlodipine Besylate (Norvasc) 5 mg DAILY PO Last administered on 02/02/21at 09:44; Start 01/31/21 at 10:30 Carvedilol (Coreg) 6.25 mg BIDWMEALS PO Last administered on 02/02/21at 09:45; Start 01/31/21 at 10:30 Simvastatin (Zocor) 20 mg HS PO Last administered on 02/01/21at 22:45; Start 02/01/21 at 21:00 Active Scripts Active Reported Pantoprazole Sodium (Pantoprazole Sodium) 40 Mg Tablet.dr 40 Mg PO DAILYAC Potassium Chloride (Potassium Chloride) 20 Meq Tablet.er 40 Meq PO DAILY Fludrocortisone Acetate 0.1 Mg Tablet 1 Tab PO DAILY Carbidopa-Levo Er 50-200 Tab (Carbidopa/Levodopa) 1 Each Tablet.er 1 Each PO TID Acyclovir 800 Mg Tablet 800 Mg PO BID Tramadol Hcl 50 Mg Tablet 50 Mg PO TID PRN Feosol (Ferrous Sulfate) 325 Mg Tablet 1 Tab PO DAILY 30 Days Fish Oil 1,000 Mg Capsule ([place]-3 Fatty Acids/Fish Oil) 1 Each Capsule 1 Each PO DAILY Latanoprost 2.5 Ml Drops 1 Drop EACHEYE QHS Docusate Sodium 100 Mg Capsule 1 Cap PO DAILY PRN Timoptic 0.5% Ocudose Drop (Timolol Maleate/Pf) 1 Each Droperette 1 Each OP BID Flomax (Tamsulosin Hcl) 0.4 Mg Cap.er.24h 0.4 Mg PO HS Calcium 600 + Vit D 200 Tablet (Calcium Carbonate/Vitamin D3) 1 Each Tablet 2 Each PO DAILY Daily Multiple Vitamin (Multivitamin) 1 Each Tablet 1 Each PO DAILY Alphagan P (Brimonidine Tartrate) 5 Ml Drops 1 Drop EACHEYE BID Simvastatin 20 Mg Tablet 20 Mg PO DAILY Vitals/I & O Vital Sign - Last 24 Hours 02/01/21 02/01/21 02/01/21 02/01/21 11:16 14:50 17:51 19:24 Temp 98.2 97.8 97.8 98.2 97.8 97.8 Pulse 90 87 100 90 Resp 19 18 18 B/P (MAP) 138/81 (100) 116/74 (88) 103/81 122/70 (87) Pulse Ox 97 97 90 O2 Delivery Room Air Room Air Room Air 02/01/21 02/01/21 02/02/21 02/02/21 20:15 22:56 03:19 07:00 Temp 97.6 98.0 97.6 97.6 98.0 97.6 Pulse 88 72 94 Resp 24 18 24 B/P (MAP) 137/98 (111) 135/77 (96) 161/94 (116) Pulse Ox 100 100 92 O2 Delivery Room Air Room Air Room Air Room Air 02/02/21 02/02/21 02/02/21 08:00 09:44 09:45 Pulse 94 94 B/P (MAP) 161/94 161/94 O2 Delivery Room Air Intake and Output 02/01/21 02/01/21 02/02/21 15:00 23:00 07:00 Intake Total 500 ml 360 ml 0 ml Output Total 1100 ml Balance 500 ml -740 ml 0 ml Justicifation of Admission Dx: Justifications for Admission: Justification of Admission Dx: N/A DONI ASENCIO MD Feb 02, 2021 10:29
[2021-02-02] MEDS: fentaNYL PF VIAL 100 MCG/2 ML VIAL IVP PRN (10:39)
[2021-02-02 10:41] VITALS: BP 87/64
--- NOTE | 2021-02-02 11:11 | NUR ---
SS following up with discharge planning. SS reviewed pt chart and discussed with pt RN. Pt is currently on room air. COVID19 negative. Discharge orders received for home with home healthcare. SS met with pt and spouse in room and discussed discharge planning and home healthcare. Pt and spouse requested [facility], ; fax [phone]. SS phoned and faxed discharge orders and referral to [facility]. Pt's RN notified.
--- NOTE | 2021-02-02 12:32 | PDOC ---
ALESSIO RAMIREZ APRN 02/02/21 1232: CARDIO Progress Notes Date and Time Date of Service 02/02/21 Time of Evaluation 12:30 Subjective Subjective: No Chest Pain, No shortness of breath, No Palpitations Vitals Vitals Vital Signs Date Time Temp Pulse Resp B/P (MAP) Pulse Ox O2 Delivery O2 Flow Rate FiO2 02/02/21 10:41 97.6 97 20 87/64 (72) 99 Room Air 97.6 Weight Weight [ ] Input and Output Intake and Output Intake and Output 02/02/21 06:59 Intake Total 860 ml Output Total 1100 ml Balance -240 ml Intake Oral 860 ml Output Urine Total 1100 ml # Bowel Movements 2 Physical Exam HEENT: Neck Supple W Full Motion Chest: Symmetric LUNGS: Clear to Auscultation Heart: RRR Abdomen: Soft N/T Neurology: alert, oriented, follow commands Assessment Assessment 1. Chest pain, atypical. AMI ruled out 2. Hypertensive urgency; Florinef discontinued. Coreg and amlodipine resumed. somewhat labile 3. Possible autonomic dysfunction with associated Parkinsons 4. Hx of MM and Prostate CA 5. CAD: reported past stent, clinically stable 6. Chronic diastolic/systolic CHF: clinically compensated. Echo with LVEF 40- 45% 7. Hyperlipidemia; statin 9. Diabetes, II Recommendations Secondary prevention measures. Lasix PRN Home BP monitoring Consider outpatient ischemic evaluation Follow up in our office with Dr. Lakhani as scheduled. Justicifation of Admission Dx: Justifications for Admission: Justification of Admission Dx: N/A RYAN LAKHANI MD 02/02/21 1333: CARDIO Progress Notes Assessment Assessment Patient seen and examined. Agree with TILE CLASSIFIER's assessment and plan. Chest pain with atypical features. Myocardial infarction has been ruled out. 2D echo showed LVEF 40 to 45%. He is clinically well compensated. Blood pressure labile but better controlled. Continue current medical regimen. Possible DC home today. ALESSIO RAMIREZ APRN Feb 02, 2021 12:32 RYAN LAKHANI MD Feb 02, 2021 13:33
== END 2021-02-02 13:50 | disposition home or self-care (01) | DRG 305 ==
LOC: ER 19:05 → 6 SOUTH 21:22
PROVIDERS: ADMIT Family Medicine; ATTEND Family Medicine
DX: I10 Essential (primary) hypertension (principal); C90.00 Multiple myeloma not having achieved remission; I50.42 Chronic combined systolic (congestive) and diastolic (congestive) heart failure; E11.9 Type 2 diabetes mellitus without complications; E78.5 Hyperlipidemia, unspecified; G20 Parkinson's disease; G62.0 Drug-induced polyneuropathy; I15.8 Other secondary hypertension; I16.0 Hypertensive urgency; I25.10 Atherosclerotic heart disease of native coronary artery without angina pectoris; F32.A Depression, unspecified; F41.9 Anxiety disorder, unspecified; H40.9 Unspecified glaucoma; M19.90 Unspecified osteoarthritis, unspecified site; K57.90 Diverticulosis of intestine, part unspecified, without perforation or abscess without bleeding; Z20.822 Contact with and (suspected) exposure to COVID-19; I95.1 Orthostatic hypotension; I25.2 Old myocardial infarction; Z82.49 Family history of ischemic heart disease and other diseases of the circulatory system; Z85.46 Personal history of malignant neoplasm of prostate; Z87.891 Personal history of nicotine dependence; Z92.3 Personal history of irradiation; Z95.5 Presence of coronary angioplasty implant and graft; T38.0X5A Adverse effect of glucocorticoids and synthetic analogues, initial encounter
CPT/HCPCS: 36415; 71045; 71275; 80053; 81001; 83690; 83735; 83880; 84484; 85025; 85379; 85610; 85730; 87426; 93005; 93308; 96361; 96374; 96376; J3010; J7030; Q9967; U0003; U0005; 99285-25; G0378

== ENCOUNTER → 2021-02-05 | Outpatient (CLI) | payer MEDICARE, OTHER ==
[2021-02-02 10:41] VITALS: BP 87/64
[~2021-02-05] MED LIST changes: +CARB1TAB44 PO; +FLUD0.1T PO; +PANT40TA77 PO; +POTA20TA4 PO
[2021-02-05 11:40] LABS: BASO % 1 % (0-3); EOS # 0.1 x10^3/uL (0.0-0.7); EOS % 2 % (0-3); HEMATOCRIT 37.1 % (39.0-53.0); HEMOGLOBIN 12.2 g/dL (13.0-17.5); LYMPH # 0.7 x10^3/uL (1.0-4.8); LYMPH % 17 % (24-48); MEAN CORPUSCULAR HEMOGLOBIN 35 pg (25-35); MEAN CORPUSCULAR HGB CONC 33 g/dL (31-37); MEAN CORPUSCULAR VOLUME 106 fL (79-100); MONO # 0.3 x10^3/uL (0.0-1.1); MONO % 7 % (0-9); NEUT % 73 % (31-73); PLATELET COUNT 146 x10^3/uL (140-400); RED BLOOD COUNT 3.51 x10^6/uL (4.30-5.70); RED CELL DISTRIBUTION WIDTH 13.6 % (11.5-14.5); WHITE BLOOD COUNT 4.1 x10^3/uL (4.0-11.0)
[2021-02-05 11:49] LABS: CALCIUM 8.9 mg/dL (8.5-10.1); CREATININE 0.8 mg/dL (0.7-1.3); GFR 92.3; POTASSIUM 4.2 mmol/L (3.5-5.1)
[2021-02-05 11:54] LABS: ALBUMIN 3.2 g/dL (3.4-5.0); ALBUMIN/GLOBULIN RATIO 1.1 (1.0-1.7); TOTAL BILIRUBIN 0.6 mg/dL (0.2-1.0); TOTAL PROTEIN 6.1 g/dL (6.4-8.2)
== END ==
LOC: ONCLAB 10:46
PROVIDERS: ATTEND Internal Medicine Hematology & Oncology
DX: C90.00 Multiple myeloma not having achieved remission (principal)
CPT/HCPCS: 36415; 80053; 85025

== ENCOUNTER → 2021-02-19 | Outpatient (CLI) | payer MEDICARE, OTHER ==
[2021-02-02 10:41] VITALS: BP 87/64
[2021-02-19 11:27] LABS: BASO % 0 % (0-3); EOS # 0.1 x10^3/uL (0.0-0.7); EOS % 1 % (0-3); HEMATOCRIT 36.8 % (39.0-53.0); HEMOGLOBIN 12.3 g/dL (13.0-17.5); LYMPH # 0.8 x10^3/uL (1.0-4.8); LYMPH % 14 % (24-48); MEAN CORPUSCULAR HEMOGLOBIN 35 pg (25-35); MEAN CORPUSCULAR HGB CONC 33 g/dL (31-37); MEAN CORPUSCULAR VOLUME 106 fL (79-100); MONO # 0.3 x10^3/uL (0.0-1.1); MONO % 6 % (0-9); NEUT # 4.2 x10^3/uL (1.8-7.7); NEUT % 78 % (31-73); PLATELET COUNT 122 x10^3/uL (140-400); RED BLOOD COUNT 3.48 x10^6/uL (4.30-5.70); RED CELL DISTRIBUTION WIDTH 14.4 % (11.5-14.5); WHITE BLOOD COUNT 5.4 x10^3/uL (4.0-11.0)
[2021-02-19 11:46] LABS: CALCIUM 8.7 mg/dL (8.5-10.1); CREATININE 0.7 mg/dL (0.7-1.3); GFR 107.7; POTASSIUM 4.3 mmol/L (3.5-5.1)
[2021-02-19 11:51] LABS: TOTAL BILIRUBIN 0.5 mg/dL (0.2-1.0); TOTAL PROTEIN 5.9 g/dL (6.4-8.2)
== END ==
LOC: ONCLAB 11:11
PROVIDERS: ATTEND Internal Medicine Hematology & Oncology
DX: C90.00 Multiple myeloma not having achieved remission (principal)
CPT/HCPCS: 36415; 80053; 85025

== ENCOUNTER → 2021-03-05 | Outpatient (CLI) | payer MEDICARE, OTHER ==
[2021-03-05 12:32] LABS: BASO % 0 % (0-3); EOS % 1 % (0-3); HEMATOCRIT 37.6 % (39.0-53.0); HEMOGLOBIN 12.6 g/dL (13.0-17.5); LYMPH # 0.8 x10^3/uL (1.0-4.8); LYMPH % 12 % (24-48); MEAN CORPUSCULAR HEMOGLOBIN 36 pg (25-35); MEAN CORPUSCULAR HGB CONC 34 g/dL (31-37); MEAN CORPUSCULAR VOLUME 106 fL (79-100); MONO # 0.4 x10^3/uL (0.0-1.1); MONO % 7 % (0-9); NEUT # 5.1 x10^3/uL (1.8-7.7); NEUT % 80 % (31-73); PLATELET COUNT 124 x10^3/uL (140-400); RED BLOOD COUNT 3.55 x10^6/uL (4.30-5.70); RED CELL DISTRIBUTION WIDTH 14.5 % (11.5-14.5); WHITE BLOOD COUNT 6.4 x10^3/uL (4.0-11.0)
[2021-03-05 13:26] LABS: CALCIUM 8.3 mg/dL (8.5-10.1); CREATININE 0.7 mg/dL (0.7-1.3); GFR 107.7; POTASSIUM 5.2 mmol/L (3.5-5.1)
[2021-03-05 13:34] LABS: TOTAL BILIRUBIN 0.5 mg/dL (0.2-1.0); TOTAL PROTEIN 5.9 g/dL (6.4-8.2)
== END ==
LOC: ONCLAB 11:41
PROVIDERS: ATTEND Internal Medicine Hematology & Oncology
DX: C90.00 Multiple myeloma not having achieved remission (principal)
CPT/HCPCS: 36415; 80053; 85025

== ENCOUNTER → 2021-03-19 | Outpatient (CLI) | payer MEDICARE, OTHER ==
[2021-03-19 12:14] LABS: BASO % 0 % (0-3); EOS # 0.1 x10^3/uL (0.0-0.7); EOS % 2 % (0-3); HEMATOCRIT 36.8 % (39.0-53.0); HEMOGLOBIN 12.1 g/dL (13.0-17.5); LYMPH # 0.8 x10^3/uL (1.0-4.8); LYMPH % 20 % (24-48); MEAN CORPUSCULAR HEMOGLOBIN 35 pg (25-35); MEAN CORPUSCULAR HGB CONC 33 g/dL (31-37); MEAN CORPUSCULAR VOLUME 107 fL (79-100); MONO # 0.3 x10^3/uL (0.0-1.1); MONO % 6 % (0-9); NEUT # 2.9 x10^3/uL (1.8-7.7); NEUT % 71 % (31-73); PLATELET COUNT 116 x10^3/uL (140-400); RED BLOOD COUNT 3.45 x10^6/uL (4.30-5.70); RED CELL DISTRIBUTION WIDTH 14.6 % (11.5-14.5); WHITE BLOOD COUNT 4.1 x10^3/uL (4.0-11.0)
[2021-03-19 12:33] LABS: CALCIUM 8.5 mg/dL (8.5-10.1); CREATININE 0.7 mg/dL (0.7-1.3); GFR 107.7; POTASSIUM 4.1 mmol/L (3.5-5.1)
[2021-03-19 12:37] LABS: ALBUMIN 2.9 g/dL (3.4-5.0); TOTAL BILIRUBIN 0.4 mg/dL (0.2-1.0); TOTAL PROTEIN 5.7 g/dL (6.4-8.2)
== END ==
LOC: ONCLAB 11:07
PROVIDERS: ATTEND Internal Medicine Hematology & Oncology
DX: C90.00 Multiple myeloma not having achieved remission (principal)
CPT/HCPCS: 36415; 80053; 85025

== ENCOUNTER → 2021-04-07 | Outpatient (CLI) | payer MEDICARE, OTHER ==
[2021-04-07 11:46] LABS: BASO % 1 % (0-3); EOS # 0.1 x10^3/uL (0.0-0.7); EOS % 2 % (0-3); HEMATOCRIT 36.5 % (39.0-53.0); HEMOGLOBIN 12.4 g/dL (13.0-17.5); LYMPH % 20 % (24-48); MEAN CORPUSCULAR HEMOGLOBIN 35 pg (25-35); MEAN CORPUSCULAR HGB CONC 34 g/dL (31-37); MEAN CORPUSCULAR VOLUME 104 fL (79-100); MONO # 0.3 x10^3/uL (0.0-1.1); MONO % 7 % (0-9); NEUT # 3.6 x10^3/uL (1.8-7.7); NEUT % 71 % (31-73); PLATELET COUNT 140 x10^3/uL (140-400); RED BLOOD COUNT 3.51 x10^6/uL (4.30-5.70); RED CELL DISTRIBUTION WIDTH 13.7 % (11.5-14.5)
[2021-04-07 12:05] LABS: CALCIUM 8.5 mg/dL (8.5-10.1); CREATININE 0.8 mg/dL (0.7-1.3); GFR 92.3; POTASSIUM 4.2 mmol/L (3.5-5.1)
[2021-04-07 12:09] LABS: ALBUMIN 2.8 g/dL (3.4-5.0); ALBUMIN/GLOBULIN RATIO 0.7 (1.0-1.7); TOTAL BILIRUBIN 0.4 mg/dL (0.2-1.0); TOTAL PROTEIN 6.6 g/dL (6.4-8.2)
[2021-04-07 14:15] LABS: INFLUENZA A PATIENT NEGATIVE (NEGATIVE); INFLUENZA B PATIENT NEGATIVE (NEGATIVE)
== END ==
LOC: ONCLAB 10:51
PROVIDERS: ATTEND Internal Medicine Hematology & Oncology
DX: C90.00 Multiple myeloma not having achieved remission (principal); Z20.822 Contact with and (suspected) exposure to COVID-19
CPT/HCPCS: 36415; 80053; 85025; 87426; 87804; U0003; U0005

== ENCOUNTER → 2021-04-21 | Outpatient (CLI) | payer MEDICARE, OTHER ==
[2021-04-21 11:00] LABS: BASO % 0 % (0-3); EOS # 0.1 x10^3/uL (0.0-0.7); EOS % 1 % (0-3); HEMATOCRIT 34.2 % (39.0-53.0); HEMOGLOBIN 11.4 g/dL (13.0-17.5); LYMPH # 0.9 x10^3/uL (1.0-4.8); LYMPH % 16 % (24-48); MEAN CORPUSCULAR HEMOGLOBIN 35 pg (25-35); MEAN CORPUSCULAR HGB CONC 33 g/dL (31-37); MEAN CORPUSCULAR VOLUME 105 fL (79-100); MONO # 0.4 x10^3/uL (0.0-1.1); MONO % 8 % (0-9); NEUT # 3.9 x10^3/uL (1.8-7.7); NEUT % 74 % (31-73); PLATELET COUNT 136 x10^3/uL (140-400); RED BLOOD COUNT 3.24 x10^6/uL (4.30-5.70); RED CELL DISTRIBUTION WIDTH 14.2 % (11.5-14.5); WHITE BLOOD COUNT 5.3 x10^3/uL (4.0-11.0)
[2021-04-21 11:17] LABS: CREATININE 0.8 mg/dL (0.7-1.3); GFR 92.3; POTASSIUM 3.8 mmol/L (3.5-5.1)
[2021-04-21 11:23] LABS: ALBUMIN 2.8 g/dL (3.4-5.0); TOTAL BILIRUBIN 0.4 mg/dL (0.2-1.0); TOTAL PROTEIN 5.6 g/dL (6.4-8.2)
== END ==
LOC: ONCLAB 09:51
PROVIDERS: ATTEND Internal Medicine Hematology & Oncology
DX: C90.00 Multiple myeloma not having achieved remission (principal)
CPT/HCPCS: 36415; 80053; 85025

== ENCOUNTER → 2021-05-10 | Outpatient (CLI) | payer MEDICARE, OTHER ==
[2021-05-10 10:23] LABS: BASO % 1 % (0-3); EOS # 0.1 x10^3/uL (0.0-0.7); EOS % 1 % (0-3); HEMATOCRIT 35.7 % (39.0-53.0); HEMOGLOBIN 11.9 g/dL (13.0-17.5); LYMPH # 0.7 x10^3/uL (1.0-4.8); LYMPH % 14 % (24-48); MEAN CORPUSCULAR HEMOGLOBIN 35 pg (25-35); MEAN CORPUSCULAR HGB CONC 33 g/dL (31-37); MEAN CORPUSCULAR VOLUME 105 fL (79-100); MONO # 0.4 x10^3/uL (0.0-1.1); MONO % 8 % (0-9); NEUT # 4.1 x10^3/uL (1.8-7.7); NEUT % 77 % (31-73); PLATELET COUNT 128 x10^3/uL (140-400); RED CELL DISTRIBUTION WIDTH 14.3 % (11.5-14.5); WHITE BLOOD COUNT 5.3 x10^3/uL (4.0-11.0)
[2021-05-10 10:27] LABS: CREATININE 0.6 mg/dL (0.7-1.3); GFR 128.7; POTASSIUM 3.5 mmol/L (3.5-5.1)
[2021-05-10 10:34] LABS: ALBUMIN 2.6 g/dL (3.4-5.0); TOTAL BILIRUBIN 0.4 mg/dL (0.2-1.0); TOTAL PROTEIN 5.1 g/dL (6.4-8.2)
== END ==
LOC: ONCLAB 09:27
PROVIDERS: ATTEND Internal Medicine Hematology & Oncology
DX: C90.00 Multiple myeloma not having achieved remission (principal)
CPT/HCPCS: 36415; 80053; 85025

== ENCOUNTER → 2021-05-26 | Outpatient (CLI) | payer MEDICARE, OTHER ==
[2021-05-26 11:49] LABS: BASO % 1 % (0-3); EOS # 0.1 x10^3/uL (0.0-0.7); EOS % 2 % (0-3); HEMATOCRIT 36.4 % (39.0-53.0); HEMOGLOBIN 12.1 g/dL (13.0-17.5); LYMPH # 0.9 x10^3/uL (1.0-4.8); LYMPH % 19 % (24-48); MEAN CORPUSCULAR HEMOGLOBIN 35 pg (25-35); MEAN CORPUSCULAR HGB CONC 33 g/dL (31-37); MEAN CORPUSCULAR VOLUME 106 fL (79-100); MONO # 0.4 x10^3/uL (0.0-1.1); MONO % 9 % (0-9); NEUT # 3.3 x10^3/uL (1.8-7.7); NEUT % 71 % (31-73); PLATELET COUNT 128 x10^3/uL (140-400); RED BLOOD COUNT 3.44 x10^6/uL (4.30-5.70); RED CELL DISTRIBUTION WIDTH 13.9 % (11.5-14.5); WHITE BLOOD COUNT 4.6 x10^3/uL (4.0-11.0)
[2021-05-26 11:51] LABS: CALCIUM 8.4 mg/dL (8.5-10.1); CREATININE 0.7 mg/dL (0.7-1.3); GFR 107.7
[2021-05-26 11:57] LABS: ALBUMIN 2.7 g/dL (3.4-5.0); ALBUMIN/GLOBULIN RATIO 0.8 (1.0-1.7); TOTAL BILIRUBIN 0.4 mg/dL (0.2-1.0)
== END ==
LOC: ONCLAB 10:06
PROVIDERS: ATTEND Internal Medicine Hematology & Oncology
DX: C90.00 Multiple myeloma not having achieved remission (principal)
CPT/HCPCS: 36415; 80053; 85025

== ENCOUNTER → 2021-06-23 | Outpatient (CLI) | payer MEDICARE, OTHER ==
[2021-06-23 10:55] LABS: BASO % 0 % (0-3); EOS # 0.1 x10^3/uL (0.0-0.7); EOS % 2 % (0-3); HEMATOCRIT 36.5 % (39.0-53.0); HEMOGLOBIN 11.8 g/dL (13.0-17.5); LYMPH # 0.8 x10^3/uL (1.0-4.8); LYMPH % 17 % (24-48); MEAN CORPUSCULAR HEMOGLOBIN 34 pg (25-35); MEAN CORPUSCULAR HGB CONC 32 g/dL (31-37); MEAN CORPUSCULAR VOLUME 104 fL (79-100); MONO # 0.4 x10^3/uL (0.0-1.1); MONO % 7 % (0-9); NEUT # 3.6 x10^3/uL (1.8-7.7); NEUT % 73 % (31-73); PLATELET COUNT 122 x10^3/uL (140-400); RED CELL DISTRIBUTION WIDTH 13.9 % (11.5-14.5); WHITE BLOOD COUNT 4.9 x10^3/uL (4.0-11.0)
[2021-06-23 11:05] LABS: CALCIUM 8.5 mg/dL (8.5-10.1); CREATININE 0.7 mg/dL (0.7-1.3); GFR 107.7; POTASSIUM 4.2 mmol/L (3.5-5.1)
[2021-06-23 11:11] LABS: ALBUMIN 3.1 g/dL (3.4-5.0); TOTAL BILIRUBIN 0.5 mg/dL (0.2-1.0); TOTAL PROTEIN 6.3 g/dL (6.4-8.2)
== END ==
LOC: ONCLAB 10:03
PROVIDERS: ATTEND Physician Assistant
DX: C90.00 Multiple myeloma not having achieved remission (principal); Z85.46 Personal history of malignant neoplasm of prostate
CPT/HCPCS: 80053; 83921; 85025

== ENCOUNTER 2021-07-03 08:32 | Inpatient (IN) | payer MEDICARE, OTHER ==
[~2021-07-03] VITALS: Ht 177.8 cm; Wt 84.0 kg
--- NOTE | 2021-07-03 08:53 | PHYS DOC ---
Past Medical History Past Medical History: CAD, Cancer, Diverticulitis, Heart Disease, Hypertension, SC, Other Additional Past Medical Histor: PROSTATE CA,PARKINSONS,MULTIPLE MYELOMA,GUILLAIN BARRE SYNDROME Past Surgical History: Angioplasty, Other Additional Past Surgical Histo: BONE MARROW ASPIRATION, CARDIAC STENT Smoking Status: Former Smoker Alcohol Use: None Drug Use: None General Adult EDM: Chief Complaint: MECHANICAL FALL HPI: HPI: Patient is a 85 year old male presents with fall brought in by EMS from home. Patient states that he does live with his and son. States that today while backing up onto his bed from the bathroom using a walker patient took a misstep and fell landing on his buttocks. Patient reports that he instantly felt pain in his right shoulder. Denies any numbness or tingling denies any focal weakness. Patient also reports having chronic bilateral hip pain for the last few months. Patient also presents with a fever but denies any symptoms denies any rhinorrhea cough shortness of breath. Patient denies any nausea or vomiting. 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 Patient denies any weakness or chest pain. Review of Systems: Review of Systems: Constitutional: Denies fever or chills. Eyes: Denies change in visual acuity. HENT: Denies nasal congestion or sore throat. Respiratory: Denies cough or shortness of breath. Cardiovascular: Denies chest pain or edema. GI: Denies abdominal pain, nausea, vomiting, bloody stools or diarrhea. : Denies dysuria. Musculoskeletal: Patient reports chronic bilateral hip pain. Patient reports acute right shoulder pain. Integument: Denies rash. Neurologic: Denies headache, focal weakness or sensory changes. Denies dizziness Endocrine: Denies polyuria or polydipsia. Lymphatic: Denies swollen glands. Psychiatric: Denies depression or anxiety. Heart Score: C/O Chest Pain: Yes HEART Score for Chest Pain: HEART Score for Chest Pain Response (Comments) Value History Moderately Suspicious 1 ECG Nonspecific Repolarizatio 1 Age > 65 2 Total 4 Risk Factors: Risk Factors: HTN, HLP, family history of CAD, Risk Scores: Score 4 - 6: 20.3% MACE over next 6 weeks - Admit for Clinical Observation Allergies: Allergies: Allergies Coded Allergies Type Severity Reaction Last Updated Verified No Known Drug Allergies 10/10/20 No Physical Exam: PE: Constitutional: Well developed, well nourished, no acute distress, non-toxic appearance. Febrile HENT: Normocephalic, atraumatic, bilateral external ears normal, oropharynx moist, no oral exudates, nose normal. Eyes: PERRLA, EOMI, conjunctiva normal, no discharge. Neck: Normal range of motion, no tenderness, supple, no stridor. Cardiovascular:Heart rate regular rhythm, no murmur Lungs & Thorax: Bilateral breath sounds clear to auscultation Abdomen: Bowel sounds normal, soft, no tenderness, no masses, no pulsatile masses. Skin: Warm, dry, no erythema, no rash. No lesions lacerations Back: No tenderness, no CVA tenderness. Extremities: No tenderness, no cyanosis, no clubbing, limited range of motion secondary to pain of the right shoulder. Patient has no crepitance. No obvious deformity. Neurologic: Alert and oriented X 3, normal motor function, normal sensory function, no focal deficits noted. Psychologic: Affect normal, judgement normal, mood normal. Current Patient Data: Labs: Laboratory Tests Test 07/03/21 08:50 07/03/21 09:00 07/03/21 10:00 07/03/21 11:55 White Blood Count 8.7 x10^3/uL Red Blood Count 3.77 x10^6/uL Hemoglobin 12.6 g/dL Hematocrit 38.9 % Mean Corpuscular Volume 103 fL Mean Corpuscular Hemoglobin 33 pg Mean Corpuscular Hemoglobin Concent 32 g/dL Red Cell Distribution Width 13.5 % Platelet Count 108 x10^3/uL Neutrophils (%) (Auto) 86 % Lymphocytes (%) (Auto) 5 % Monocytes (%) (Auto) 8 % Eosinophils (%) (Auto) 0 % Basophils (%) (Auto) 0 % Neutrophils # (Auto) 7.5 x10^3/uL Lymphocytes # (Auto) 0.4 x10^3/uL Monocytes # (Auto) 0.7 x10^3/uL Eosinophils # (Auto) 0.0 x10^3/uL Basophils # (Auto) 0.0 x10^3/uL Prothrombin Time 12.8 SEC Prothromb Time International Ratio 1.0 Sodium Level 144 mmol/L Potassium Level 3.4 mmol/L Chloride Level 104 mmol/L Carbon Dioxide Level 30 mmol/L Anion Gap 10 Blood Urea Nitrogen 24 mg/dL Creatinine 0.8 mg/dL Estimated GFR (Cockcroft-Gault) 92.3 BUN/Creatinine Ratio 30 Glucose Level 110 mg/dL Calcium Level 9.1 mg/dL Total Bilirubin 0.8 mg/dL Aspartate Amino Transf (AST/SGOT) 18 U/L Alanine Aminotransferase (ALT/SGPT) 11 U/L Alkaline Phosphatase 46 U/L Troponin I High Sensitivity 35 ng/L 47 ng/L EG-[id number]-Type Natriuretic Peptide 699 pg/mL Total Protein 6.0 g/dL Albumin 3.4 g/dL Albumin/Globulin Ratio 1.3 Lipase 24 U/L SARS-CoV-2 Antigen (Rapid) Negative Urine Collection Type Void Urine Color (Auto) Light yellow Urine Turbidity Clear Urine pH (Auto) 7.5 Urine Specific Ralph 1.016 Urine Protein (Auto) Negative mg/dL Urine Glucose (Auto)(UA) Negative mg/dL Urine Ketones (Auto) Negative mg/dL Urine Blood (Auto) Negative Urine Nitrite Negative Urine Bilirubin (Auto) Negative Urine Urobilinogen (Auto) Normal mg/dL Urine Leukocyte Esterase (Auto) Negative Urine RBC 1-2 /HPF Urine WBC Occ /HPF Urine Squamous Epithelial Cells Few /LPF Urine Bacteria 0 /HPF Current Medications Medications (Trade) Dose Ordered Sig/Isaac Route PRN Reason Start Time Stop Time Status Last Admin Dose Admin Acetaminophen (Tylenol) 650 mg 1X ONCE PO 07/03/21 09:00 07/03/21 09:01 DC 07/03/21 08:55 Aspirin (Aspirin Chewable) 324 mg 1X ONCE PO 07/03/21 09:00 07/03/21 09:07 DC 07/03/21 09:13 Vital Signs: Vital Signs Date Time Temp Pulse Resp B/P (MAP) Pulse Ox O2 Delivery O2 Flow Rate FiO2 07/03/21 12:00 76 28 109/56 (73) 96 Room Air 07/03/21 11:36 99.4 99.4 07/03/21 11:30 74 20 103/58 (73) 94 Room Air 07/03/21 11:00 73 18 105/53 (70) 94 Room Air 07/03/21 10:30 84 18 91/55 (67) 07/03/21 10:25 99.8 99.8 07/03/21 10:00 77 18 99/54 (69) 95 Room Air 07/03/21 09:30 83 141/58 (85) 07/03/21 09:00 89 18 136/63 (87) 96 Room Air 07/03/21 08:32 101.0 94 24 138/78 (98) 99 Room Air 101.0 EKG: EKG: Patient has a heart rate of 90 with a normal sinus rhythm. Patient has PACs and Q waves in the anterior leads. Suggest age-indeterminate ischemic disease. Radiology/Procedures: Radiology/Procedures: 3 views right shoulder History: pain Internally and externally rotated AP of shoulder obtained, as well as "Y" view. The glenohumeral relationship is normal. Disc multiple old rib fractures on the right. Impression: No acute findings. end impression Pelvis and bilateral Two View hip: Clinical History: Pain. Technique: AP view the pelvis AP and frog leg views of the hips bilaterally were obtained. Comparison: None. Findings: There is obscuration of bony detail of sacrum due to overlying bowel gas. The visualized osseous structures appear normal. The femoral acetabular relationship is normal. There is gross osteopenia which decreases sensitivity for a possible nondisplaced fracture. Impression: No acute findings. Electronically signed by: Jesus Ty III, MD (07/03/2021 10:26 AM) [facility] Chest AP portable 07/03/2021. Reason for exam: Fever. Comparison is made with an exam of 01/30/2021. No infiltrate or effusion is seen. Chronic right rib deformities are again demonstrated. The heart remains enlarged. There may be a hiatal hernia. IMPRESSION: No acute findings. Lumbar spine AP and lateral views: Alignment appears normal. There is suggestion of some superior endplate compression of L2, although this is not appreciably changed from previous abdominal CT of 09/22/2020. No other fracture is seen. There is some disc narrowing especially at L4-5. IMPRESSION: Degenerative disc disease. No acute abnormality. Electronically signed by: Eric Vera Jr., MD (07/03/2021 10:19 AM) [id number] Course & Med Decision Making: Course & Med Decision Making Patient initially denied any sort of chest pain, but then after evaluation and treatment patient started clutching his chest complained of chest pain. Patient has an elevated heart score with a delta on the troponin greater than 20%. I discussed the case with patient's primary care physician will keep the patient for observation. Dragon Disclaimer: Dragon Disclaimer: This electronic medical record was generated, in whole or in part, using a voice recognition dictation system. Departure Departure Referrals: TAWNY GUDINO MD (PCP) MARITA RAMOS DO Jul 03, 2021 08:53
[2021-07-03] MEDS ORDERED: ASPIRIN CHEWABLE 81 MG TABLET. PO ONE (09:00)
[2021-07-03] MEDS ORDERED: ACETAMINOPHEN 325 MG TABLET. PO ONE (09:00)
[2021-07-03 09:13] LABS: BASO % 0 % (0-3); EOS % 0 % (0-3); HEMATOCRIT 38.9 % (39.0-53.0); HEMOGLOBIN 12.6 g/dL (13.0-17.5); LYMPH # 0.4 x10^3/uL (1.0-4.8); LYMPH % 5 % (24-48); MEAN CORPUSCULAR HEMOGLOBIN 33 pg (25-35); MEAN CORPUSCULAR HGB CONC 32 g/dL (31-37); MEAN CORPUSCULAR VOLUME 103 fL (79-100); MONO # 0.7 x10^3/uL (0.0-1.1); MONO % 8 % (0-9); NEUT # 7.5 x10^3/uL (1.8-7.7); NEUT % 86 % (31-73); PLATELET COUNT 108 x10^3/uL (140-400); RED BLOOD COUNT 3.77 x10^6/uL (4.30-5.70); RED CELL DISTRIBUTION WIDTH 13.5 % (11.5-14.5); WHITE BLOOD COUNT 8.7 x10^3/uL (4.0-11.0)
[2021-07-03 09:30] LABS: PROTHROMBIN TIME PATIENT 12.8 SEC (11.7-14.0)
[2021-07-03 09:32] LABS: CALCIUM 9.1 mg/dL (8.5-10.1); CREATININE 0.8 mg/dL (0.7-1.3); GFR 92.3; POTASSIUM 3.4 mmol/L (3.5-5.1)
[2021-07-03 09:37] LABS: ALBUMIN 3.4 g/dL (3.4-5.0); ALBUMIN/GLOBULIN RATIO 1.3 (1.0-1.7); TOTAL BILIRUBIN 0.8 mg/dL (0.2-1.0)
--- NOTE | 2021-07-03 10:21 | RAD ---
Chest AP portable 07/03/2021. Reason for exam: Fever. Comparison is made with an exam of 01/30/2021. No infiltrate or effusion is seen. Chronic right rib deformities are again demonstrated. The heart re gus enlarged. There may be a hiatal hernia. IMPRESSION: No acute findings. Lumbar spine AP and lateral views: Alignment appears normal. There is suggestion of some superior end plate compression of L2, although this is not appreciably changed from previous abdominal CT of 2020. No other fracture is seen. There is some disc narrowing especially at L4-5. IMPRESSION: Degenerative disc disease. No acute abnormality. Electronically signed by: Eric Vera Jr., MD (07/03/2021 10:19 AM) [id number]
--- NOTE | 2021-07-03 10:29 | RAD ---
3 views right shoulder History: pain Internally and externally rotated AP of shoulder obtained, as well as "Y" view. The glenohumeral relationship is normal. Disc multiple old rib fractures on the right. Impression: No acute findings. end impression Pelvis and bilateral Two View hip: Clinical History: Pain. Technique: AP view the pelvis AP and frog leg views of the hips bilaterally were obtained. Comparison: None. Findings: There is obscuration of bony detail of sacrum due to overlying bowel gas. The visualized osseous stru ctures appear normal. The femoral acetabular relationship is normal. There is gross osteopenia which decreases sensitivity for a possible nondisplaced fracture. Impression: No acute findings. Electronically signed by: Jesus Ty III, MD (07/03/2021 10:26 AM) CHERYL
[2021-07-03 11:17] LABS: BACTERIA,URINE 0 /HPF (0-FEW); WBC,URINE OCC /HPF (0-4)
[2021-07-03] MEDS ORDERED: NITROGLYCERIN SUBLINGUAL 0.4 MG BOTTLE OF 25. SL PRN (14:00)
[2021-07-03 17:00] VITALS: BP 134/65
[2021-07-03] MEDS ORDERED: BRIM5DRO2 OP (17:13)
[2021-07-03] MEDS ORDERED: CARV25TA2 PO (17:13)
[2021-07-03] MEDS ORDERED: MIRT15TA90 PO (17:13)
[2021-07-03 19:00] VITALS: BP 132/67
--- NOTE | 2021-07-03 19:05 | EKG ---
[facility] [address] [place] [address] Test Date: 2021-07-03 Test Time: 09:06:46 Pat Name: AIDA COWART Department: Room: [facility] Gender: M Building Attendant: : 1935 Requested By: MARITA RAMOS Order Number: [id number] Reading MD: Bony Lakhani Measurements Intervals [place] Rate: 90 P: -17 FL: 208 QRS: -42 QRSD: 92 T: 39 QT: 400 QTc: 494 Interpretive Statements SINUS RHYTHM ATRIAL PREMATURE COMPLEX(ES) ABNORMAL LEFT AXIS DEVIATION QRS(T) CONTOUR ABNORMALITY CONSISTENT WITH ANTEROSEPTAL INFARCT AGE UNDETERMINED CONSIDER INFERIOR MYOCARDIAL DAMAGE ABNORMAL ECG Electronically Signed On 07-03-2021 21:16:30 CDT by Bony Lakhani
[2021-07-03] MEDS: MIRTAZAPINE 15 MG TABLET PO SCH (20:43)
[2021-07-03] MEDS: TAMSULOSIN 0.4 MG CAP.ER.24H. PO SCH (20:44)
[2021-07-03] MEDS: BRIMONIDINE 0.2% OPHTH SOLUTION 5ML BOTTLE. OU SCH (20:44)
[2021-07-03] MEDS: LATANOPROST 0.005% OPHTH SOLUTION 2.5ML BOTTLE. OU SCH (20:44)
[2021-07-03] MEDS: TIMOLOL 0.5% OPHTH SOLUTION 5ML BOTTLE. OU SCH (20:44)
[2021-07-03] MEDS: CARBIDOPA/LEVODOPA CR 25/100MG TABLET.SA. PO SCH (20:44)
[2021-07-03] MEDS: ACYCLOVIR 200 MG CAPSULE. PO SCH (20:44)
[2021-07-03] MEDS: traMADol 50 MG TABLET PO PRN (20:44)
[2021-07-03] MEDS ORDERED: ACETAMINOPHEN 325 MG TABLET. PO PRN (21:00)
[2021-07-03 23:00] VITALS: BP 116/63
[2021-07-04 03:00] VITALS: BP_SYST 113; BP_SYST 116; BP_DIAS 59; BP_DIAS 63
[2021-07-04 04:47] LABS: BASO % 0 % (0-3); EOS # 0.1 x10^3/uL (0.0-0.7); EOS % 1 % (0-3); HEMATOCRIT 33.5 % (39.0-53.0); HEMOGLOBIN 11.3 g/dL (13.0-17.5); LYMPH # 0.7 x10^3/uL (1.0-4.8); LYMPH % 10 % (24-48); MEAN CORPUSCULAR HEMOGLOBIN 35 pg (25-35); MEAN CORPUSCULAR HGB CONC 34 g/dL (31-37); MEAN CORPUSCULAR VOLUME 103 fL (79-100); MONO # 0.4 x10^3/uL (0.0-1.1); MONO % 5 % (0-9); NEUT # 6.3 x10^3/uL (1.8-7.7); NEUT % 84 % (31-73); PLATELET COUNT 102 x10^3/uL (140-400); RED BLOOD COUNT 3.27 x10^6/uL (4.30-5.70); RED CELL DISTRIBUTION WIDTH 13.8 % (11.5-14.5); WHITE BLOOD COUNT 7.5 x10^3/uL (4.0-11.0)
[2021-07-04 05:10] LABS: ALBUMIN 2.8 g/dL (3.4-5.0); CALCIUM 8.3 mg/dL (8.5-10.1); CREATININE 0.9 mg/dL (0.7-1.3); GFR 80.6; POTASSIUM 3.5 mmol/L (3.5-5.1); TOTAL BILIRUBIN 0.8 mg/dL (0.2-1.0); TOTAL PROTEIN 5.6 g/dL (6.4-8.2)
[2021-07-04 07:00] VITALS: BP 155/81
--- NOTE | 2021-07-04 08:21 | PDOC2 ---
CONSULT Date of Consult Date of Consult DATE: 07/04/21 TIME: 08:21 Reason for Consult Reason for Consult: Chest pain Referring Physician Referring Physician: Dr. Sullivan Identification/Chief Complaint Chief Complaint Chest pain Source Source: Chart review, Patient History of Present Illness Reason for Visit: 85-year-old male with history of coronary artery disease presented after he had a mechanical fall while backing up onto his bed at home and landing on his buttocks. He apparently noticed retrosternal chest pain after that that has currently resolved. He stated that this was sharp and not related to exertion. He denied any dizziness or loss of consciousness. He also denied any orthopnea/PND, palpitations or claudication. Past Medical History Cardiovascular: CAD, HTN, NH, Syncope, Other Pulmonary: No pertinent hx CENTRAL NERVOUS SYSTEM: Other GI: Diverticulosis, Hemorrhoids Heme/Onc: Other Hepatobiliary: No pertinent hx Psych: Depression Musculoskeletal: Osteoarthritis Rheumatologic: No pertinent hx Infectious disease: No pertinent hx Renal/: Benign prostatic enlarg., Prostate Ca. Endocrine: Diabetes Past Surgical History Past Surgical History: Tonsillectomy, Other Family History Family History: Hypertension Social History ALCOHOL: none Drugs: None Lives: with Family Current Problem List Problem List Problems Medical Problems: (1) Contusion of right shoulder Status: Acute (2) Fall Status: Acute (3) Fever Status: Acute Current Medications Current Medications Current Medications Acetaminophen (Tylenol) 650 mg 1X ONCE PO Last administered on 07/03/21at 08:55; Start 07/03/21 at 09:00; Stop 07/03/21 at 09:01; Status DC Aspirin (Aspirin Chewable) 324 mg 1X ONCE PO Last administered on 07/03/21at 09:13; Start 07/03/21 at 09:00; Stop 07/03/21 at 09:07; Status DC Nitroglycerin (Nitrostat) 0.4 mg PRN Q5MIN PRN SL CHEST PAIN; Start 07/03/21 at 14:00; Stop 07/04/21 at 13:59 Ferrous Sulfate (Feosol) 325 mg DAILY PO ; Start 07/04/21 at 09:00 Latanoprost (Xalatan) 1 drop QHS OU Last administered on 07/03/21at 20:44; Start 07/03/21 at 21:00 Fish Oil (Fish Oil) 1,000 mg DAILY PO ; Start 07/04/21 at 09:00 Pantoprazole Sodium (Protonix) 40 mg DAILYAC PO ; Start 07/04/21 at 07:30 Potassium Chloride (Klor-Con) 40 meq DAILY PO ; Start 07/04/21 at 09:00 Simvastatin (Zocor) 20 mg DAILY PO ; Start 07/04/21 at 09:00 Tamsulosin HCl (Flomax) 0.4 mg HS PO Last administered on 07/03/21 20:44; Start 07/03/21 at 21:00 Tramadol HCl (Ultram) 50 mg PRN TID PRN PO PAIN Last administered on 07/03/21 20:44; Start 07/03/21 at 19:00 Acyclovir (Zovirax) 800 mg BID PO Last administered on 07/03/21 20:44; Start 07/03/21 at 21:00 Brimonidine Tartrate (Alphagan) 1 drop BID OU Last administered on 07/03/21 20:44; Start 07/03/21 at 21:00 Calcium/Vitamin D (Oscal D 500mg/ 200uts) 2 tab DAILY PO ; Start 07/04/21 at 09:00 Carbidopa/Levodopa (Sinemet Cr) 2 tab.sa TID PO Last administered on 07/03/21 20:44; Start 07/03/21 at 21:00 Carvedilol (Coreg) 6.25 mg BIDWMEALS PO ; Start 07/04/21 at 08:00 Mirtazapine (Remeron) 15 mg QHS PO Last administered on 07/03/21 20:43; Start 07/03/21 at 21:00 Multivitamins (Thera M Plus) 1 tab DAILY PO ; Start 07/04/21 at 09:00 Timolol Maleate (Timoptic 0.5% Oph) 1 drop BID OU Last administered on 07/03/21 20:44; Start 07/03/21 at 21:00 Acetaminophen (Tylenol) 650 mg PRN Q6HRS PRN PO MILD PAIN / TEMP > 100.3'F Last administered on 07/03/21at 21:04; Start 07/03/21 at 21:00 Active Scripts Active Reported Mirtazapine 15 Mg Tab.rapdis 1 Tab PO QHS 30 Days Combigan Eye Drops (Brimonidine Tartrate/Timolol) 5 Ml Drops 5 Ml OP BID Carvedilol 25 Mg Tablet 6.25 Mg PO BIDWMEALS Pantoprazole Sodium (Pantoprazole Sodium) 40 Mg Tablet.dr 40 Mg PO DAILYAC Potassium Chloride (Potassium Chloride) 20 Meq Tablet.er 40 Meq PO DAILY Carbidopa-Levo Er 50-200 Tab (Carbidopa/Levodopa) 1 Each Tablet.er 1 Each PO TID Acyclovir 800 Mg Tablet 800 Mg PO BID Tramadol Hcl 50 Mg Tablet 50 Mg PO TID PRN Feosol (Ferrous Sulfate) 325 Mg Tablet 1 Tab PO DAILY 30 Days Fish Oil 1,000 Mg Capsule ([place]-3 Fatty Acids/Fish Oil) 1 Each Capsule 1 Each PO DAILY Latanoprost 2.5 Ml Drops 1 Drop EACHEYE QHS Flomax (Tamsulosin Hcl) 0.4 Mg Cap.er.24h 0.4 Mg PO HS Calcium 600 + Vit D 200 Tablet (Calcium Carbonate/Vitamin D3) 1 Each Tablet 2 Each PO DAILY Daily Multiple Vitamin (Multivitamin) 1 Each Tablet 1 Each PO DAILY Simvastatin 20 Mg Tablet 20 Mg PO DAILY Allergies Allergies: Coded Allergies: No Known Drug Allergies (Unverified , 07/03/21) ROS PSYCHOLOGICAL ROS: No: Hallucinations Eyes: No Loss of vision HEENT: No: Epistaxis Cardiovascular: yes Chest Pain Gastrointestinal: No Vomiting, No Diarrhea Genitourinary: No Hematuria Neurological: No Seizures Skin: No Rash Physical Exam General: Alert, Oriented X3 HEENT: Atraumatic Lungs: Clear to auscultation Heart: Regular rate Abdomen: Soft Extremities: No edema Neuro: Normal speech Psych/Mental Status: Mood NL Vitals VITALS Vital Signs Date Time Temp Pulse Resp B/P (MAP) Pulse Ox O2 Delivery O2 Flow Rate FiO2 07/04/21 03:00 97.6 66 20 113/59 (77) 97 Room Air 97.6 Labs Labs Laboratory Tests Test 07/03/21 08:50 07/03/21 09:00 07/03/21 10:00 07/03/21 11:55 White Blood Count 8.7 x10^3/uL (4.0-11.0) Red Blood Count 3.77 x10^6/uL (4.30-5.70) Hemoglobin 12.6 g/dL (13.0-17.5) Hematocrit 38.9 % (39.0-53.0) Mean Corpuscular Volume 103 fL (79-100) Mean Corpuscular Hemoglobin 33 pg (25-35) Mean Corpuscular Hemoglobin Concent 32 g/dL (31-37) Red Cell Distribution Width 13.5 % (11.5-14.5) Platelet Count 108 x10^3/uL (140-400) Neutrophils (%) (Auto) 86 % (31-73) Lymphocytes (%) (Auto) 5 % (24-48) Monocytes (%) (Auto) 8 % (0-9) Eosinophils (%) (Auto) 0 % (0-3) Basophils (%) (Auto) 0 % (0-3) Neutrophils # (Auto) 7.5 x10^3/uL (1.8-7.7) Lymphocytes # (Auto) 0.4 x10^3/uL (1.0-4.8) Monocytes # (Auto) 0.7 x10^3/uL (0.0-1.1) Eosinophils # (Auto) 0.0 x10^3/uL (0.0-0.7) Basophils # (Auto) 0.0 x10^3/uL (0.0-0.2) Prothrombin Time 12.8 SEC (11.7-14.0) Prothromb Time International Ratio 1.0 (0.8-1.1) Sodium Level 144 mmol/L (136-145) Potassium Level 3.4 mmol/L (3.5-5.1) Chloride Level 104 mmol/L (98-107) Carbon Dioxide Level 30 mmol/L (21-32) Anion Gap 10 (6-14) Blood Urea Nitrogen 24 mg/dL (8-26) Creatinine 0.8 mg/dL (0.7-1.3) Estimated GFR (Cockcroft-Gault) 92.3 BUN/Creatinine Ratio 30 (6-20) Glucose Level 110 mg/dL (70-99) Calcium Level 9.1 mg/dL (8.5-10.1) Total Bilirubin 0.8 mg/dL (0.2-1.0) Aspartate Amino Transf (AST/SGOT) 18 U/L (15-37) Alanine Aminotransferase (ALT/SGPT) 11 U/L (16-63) Alkaline Phosphatase 46 U/L (46-116) Troponin I High Sensitivity 35 ng/L (4-75) 47 ng/L (4-75) LY-Bob-T-Type Natriuretic Peptide 699 pg/mL (0-449) Total Protein 6.0 g/dL (6.4-8.2) Albumin 3.4 g/dL (3.4-5.0) Albumin/Globulin Ratio 1.3 (1.0-1.7) Lipase 24 U/L (73-393) SARS-CoV-2 Antigen (Rapid) Negative (NEGATIVE) Urine Collection Type Void Urine Color (Auto) Light yellow Urine Turbidity Clear Urine pH (Auto) 7.5 (<5.0-8.0) Urine Specific [place] 1.016 (1.000-1.030) Urine Protein (Auto) Negative mg/dL (Negative) Urine Glucose (Auto)(UA) Negative mg/dL (Negative) Urine Ketones (Auto) Negative mg/dL (Negative) Urine Blood (Auto) Negative (Negative) Urine Nitrite Negative (Negative) Urine Bilirubin (Auto) Negative (Negative) Urine Urobilinogen (Auto) Normal mg/dL (Normal) Urine Leukocyte Esterase (Auto) Negative (Negative) Urine RBC 1-2 /HPF (0-2) Urine WBC Occ /HPF (0-4) Urine Squamous Epithelial Cells Few /LPF Urine Bacteria 0 /HPF (0-FEW) Test 07/03/21 15:30 07/04/21 04:30 Troponin I High Sensitivity 59 ng/L (4-75) White Blood Count 7.5 x10^3/uL (4.0-11.0) Red Blood Count 3.27 x10^6/uL (4.30-5.70) Hemoglobin 11.3 g/dL (13.0-17.5) Hematocrit 33.5 % (39.0-53.0) Mean Corpuscular Volume 103 fL (79-100) Mean Corpuscular Hemoglobin 35 pg (25-35) Mean Corpuscular Hemoglobin Concent 34 g/dL (31-37) Red Cell Distribution Width 13.8 % (11.5-14.5) Platelet Count 102 x10^3/uL (140-400) Neutrophils (%) (Auto) 84 % (31-73) Lymphocytes (%) (Auto) 10 % (24-48) Monocytes (%) (Auto) 5 % (0-9) Eosinophils (%) (Auto) 1 % (0-3) Basophils (%) (Auto) 0 % (0-3) Neutrophils # (Auto) 6.3 x10^3/uL (1.8-7.7) Lymphocytes # (Auto) 0.7 x10^3/uL (1.0-4.8) Monocytes # (Auto) 0.4 x10^3/uL (0.0-1.1) Eosinophils # (Auto) 0.1 x10^3/uL (0.0-0.7) Basophils # (Auto) 0.0 x10^3/uL (0.0-0.2) Sodium Level 143 mmol/L (136-145) Potassium Level 3.5 mmol/L (3.5-5.1) Chloride Level 107 mmol/L (98-107) Carbon Dioxide Level 30 mmol/L (21-32) Anion Gap 6 (6-14) Blood Urea Nitrogen 26 mg/dL (8-26) Creatinine 0.9 mg/dL (0.7-1.3) Estimated GFR (Cockcroft-Gault) 80.6 BUN/Creatinine Ratio 29 (6-20) Glucose Level 112 mg/dL (70-99) Calcium Level 8.3 mg/dL (8.5-10.1) Total Bilirubin 0.8 mg/dL (0.2-1.0) Aspartate Amino Transf (AST/SGOT) 18 U/L (15-37) Alanine Aminotransferase (ALT/SGPT) 9 U/L (16-63) Alkaline Phosphatase 37 U/L (46-116) Total Protein 5.6 g/dL (6.4-8.2) Albumin 2.8 g/dL (3.4-5.0) Albumin/Globulin Ratio 1.0 (1.0-1.7) Laboratory Tests Test 07/03/21 08:50 07/03/21 09:00 07/03/21 10:00 07/03/21 11:55 White Blood Count 8.7 x10^3/uL (4.0-11.0) Red Blood Count 3.77 x10^6/uL (4.30-5.70) Hemoglobin 12.6 g/dL (13.0-17.5) Hematocrit 38.9 % (39.0-53.0) Mean Corpuscular Volume 103 fL (79-100) Mean Corpuscular Hemoglobin 33 pg (25-35) Mean Corpuscular Hemoglobin Concent 32 g/dL (31-37) Red Cell Distribution Width 13.5 % (11.5-14.5) Platelet Count 108 x10^3/uL (140-400) Neutrophils (%) (Auto) 86 % (31-73) Lymphocytes (%) (Auto) 5 % (24-48) Monocytes (%) (Auto) 8 % (0-9) Eosinophils (%) (Auto) 0 % (0-3) Basophils (%) (Auto) 0 % (0-3) Neutrophils # (Auto) 7.5 x10^3/uL (1.8-7.7) Lymphocytes # (Auto) 0.4 x10^3/uL (1.0-4.8) Monocytes # (Auto) 0.7 x10^3/uL (0.0-1.1) Eosinophils # (Auto) 0.0 x10^3/uL (0.0-0.7) Basophils # (Auto) 0.0 x10^3/uL (0.0-0.2) Prothrombin Time 12.8 SEC (11.7-14.0) Prothromb Time International Ratio 1.0 (0.8-1.1) Sodium Level 144 mmol/L (136-145) Potassium Level 3.4 mmol/L (3.5-5.1) Chloride Level 104 mmol/L (98-107) Carbon Dioxide Level 30 mmol/L (21-32) Anion Gap 10 (6-14) Blood Urea Nitrogen 24 mg/dL (8-26) Creatinine 0.8 mg/dL (0.7-1.3) Estimated GFR (Cockcroft-Gault) 92.3 BUN/Creatinine Ratio 30 (6-20) Glucose Level 110 mg/dL (70-99) Calcium Level 9.1 mg/dL (8.5-10.1) Total Bilirubin 0.8 mg/dL (0.2-1.0) Aspartate Amino Transf (AST/SGOT) 18 U/L (15-37) Alanine Aminotransferase (ALT/SGPT) 11 U/L (16-63) Alkaline Phosphatase 46 U/L (46-116) Troponin I High Sensitivity 35 ng/L (4-75) 47 ng/L (4-75) UJ-Bul-W-Type Natriuretic Peptide 699 pg/mL (0-449) Total Protein 6.0 g/dL (6.4-8.2) Albumin 3.4 g/dL (3.4-5.0) Albumin/Globulin Ratio 1.3 (1.0-1.7) Lipase 24 U/L (73-393) SARS-CoV-2 Antigen (Rapid) Negative (NEGATIVE) Urine Collection Type Void Urine Color (Auto) Light yellow Urine Turbidity Clear Urine pH (Auto) 7.5 (<5.0-8.0) Urine Specific [place] 1.016 (1.000-1.030) Urine Protein (Auto) Negative mg/dL (Negative) Urine Glucose (Auto)(UA) Negative mg/dL (Negative) Urine Ketones (Auto) Negative mg/dL (Negative) Urine Blood (Auto) Negative (Negative) Urine Nitrite Negative (Negative) Urine Bilirubin (Auto) Negative (Negative) Urine Urobilinogen (Auto) Normal mg/dL (Normal) Urine Leukocyte Esterase (Auto) Negative (Negative) Urine RBC 1-2 /HPF (0-2) Urine WBC Occ /HPF (0-4) Urine Squamous Epithelial Cells Few /LPF Urine Bacteria 0 /HPF (0-FEW) Test 07/03/21 15:30 07/04/21 04:30 Troponin I High Sensitivity 59 ng/L (4-75) White Blood Count 7.5 x10^3/uL (4.0-11.0) Red Blood Count 3.27 x10^6/uL (4.30-5.70) Hemoglobin 11.3 g/dL (13.0-17.5) Hematocrit 33.5 % (39.0-53.0) Mean Corpuscular Volume 103 fL (79-100) Mean Corpuscular Hemoglobin 35 pg (25-35) Mean Corpuscular Hemoglobin Concent 34 g/dL (31-37) Red Cell Distribution Width 13.8 % (11.5-14.5) Platelet Count 102 x10^3/uL (140-400) Neutrophils (%) (Auto) 84 % (31-73) Lymphocytes (%) (Auto) 10 % (24-48) Monocytes (%) (Auto) 5 % (0-9) Eosinophils (%) (Auto) 1 % (0-3) Basophils (%) (Auto) 0 % (0-3) Neutrophils # (Auto) 6.3 x10^3/uL (1.8-7.7) Lymphocytes # (Auto) 0.7 x10^3/uL (1.0-4.8) Monocytes # (Auto) 0.4 x10^3/uL (0.0-1.1) Eosinophils # (Auto) 0.1 x10^3/uL (0.0-0.7) Basophils # (Auto) 0.0 x10^3/uL (0.0-0.2) Sodium Level 143 mmol/L (136-145) Potassium Level 3.5 mmol/L (3.5-5.1) Chloride Level 107 mmol/L (98-107) Carbon Dioxide Level 30 mmol/L (21-32) Anion Gap 6 (6-14) Blood Urea Nitrogen 26 mg/dL (8-26) Creatinine 0.9 mg/dL (0.7-1.3) Estimated GFR (Cockcroft-Gault) 80.6 BUN/Creatinine Ratio 29 (6-20) Glucose Level 112 mg/dL (70-99) Calcium Level 8.3 mg/dL (8.5-10.1) Total Bilirubin 0.8 mg/dL (0.2-1.0) Aspartate Amino Transf (AST/SGOT) 18 U/L (15-37) Alanine Aminotransferase (ALT/SGPT) 9 U/L (16-63) Alkaline Phosphatase 37 U/L (46-116) Total Protein 5.6 g/dL (6.4-8.2) Albumin 2.8 g/dL (3.4-5.0) Albumin/Globulin Ratio 1.0 (1.0-1.7) Assessment/Plan Assessment/Plan 1. Chest pain with atypical features, musculoskeletal resulting from his mechanical fall. Myocardial infarction has been ruled out. His symptoms are currently resolved. 2. Coronary artery disease, reported PCI in the past. Cardiac catheterization in January 2020 showed diffuse disease without any lesions needing intervention. Continue current secondary prevention measures. 3. Hypertension: Controlled 4. Chronic combined systolic and diastolic heart failure: Recent 2D echo showed LVEF 40 to 45%. He is clinically well compensated. Continue current medical regimen. 5. Hyperlipidemia: Continue statins 6. Orthostatic hypotension: Being treated with Florinef 7. Parkinson's disease: Continue current medical regimen 8. Multiple myeloma: Being followed by oncology team 9. DM2: Treat per IM Thank you for your consultation RYAN BUNCH MD Jul 04, 2021 08:21
[2021-07-04] MEDS: OMEGA-3 FATTY ACIDS/FISH OIL 1,000 MG CAPSULE. PO SCH (09:00)
[2021-07-04] MEDS: BRIMONIDINE 0.2% OPHTH SOLUTION 5ML BOTTLE. OU SCH ×2 (09:00→21:00)
[2021-07-04] MEDS: MULTIVITAMIN with MINERAL TABLET. PO SCH (09:00)
[2021-07-04] MEDS: POTASSIUM CHLORIDE 20 MEQ TABLET.ER. PO SCH (09:01)
[2021-07-04] MEDS: PANTOPRAZOLE 40 MG TABLET.DR. PO SCH (09:01)
[2021-07-04] MEDS: CARBIDOPA/LEVODOPA CR 25/100MG TABLET.SA. PO SCH ×3 (09:01→22:17)
[2021-07-04] MEDS: ACYCLOVIR 200 MG CAPSULE. PO SCH ×2 (09:01→22:17)
[2021-07-04] MEDS: FERROUS SULFATE 325 MG TABLET. PO SCH (09:02)
[2021-07-04] MEDS: TIMOLOL 0.5% OPHTH SOLUTION 5ML BOTTLE. OU SCH ×2 (09:02→21:00)
[2021-07-04] MEDS: SIMVASTATIN 20 MG TABLET PO SCH (09:02)
[2021-07-04] MEDS: CARVEDILOL 6.25 MG TABLET. PO SCH ×2 (09:02→18:42)
[2021-07-04] MEDS: CALCIUM CARB/VIT D3 500/200 TABLET. PO SCH (09:05)
[2021-07-04 11:00] VITALS: BP 122/61
[2021-07-04 15:00] VITALS: BP 145/70
[2021-07-04 19:35] VITALS: BP 134/83
[2021-07-04] MEDS: MIRTAZAPINE 15 MG TABLET PO SCH (22:17)
[2021-07-04] MEDS: TAMSULOSIN 0.4 MG CAP.ER.24H. PO SCH (22:17)
[2021-07-04] MEDS: LATANOPROST 0.005% OPHTH SOLUTION 2.5ML BOTTLE. OU SCH (22:17)
[2021-07-04] MEDS: traMADol 50 MG TABLET PO PRN (22:25)
[2021-07-04 22:30] VITALS: BP 152/80
[2021-07-05 03:00] VITALS: BP 111/55
[2021-07-05 07:00] VITALS: BP 119/57
--- NOTE | 2021-07-05 07:54 | SNU/HH DC ---
DISCHARGE WITH HOME HEALTH DISCHARGE INFORMATION: Final Diagnosis: Problems Medical Problems: (1) Contusion of right shoulder Status: Acute (2) Fall Status: Acute (3) Fever Status: Acute Condition on Discharge: Stable CODE STATUS: Code Status: Full HOME HEALTH: Face to Face: I certify this patient is under my care and that I, or a nurse practitioner or physician's assistant professor of education working with me, had a face to face encounter that meets the physician face to face encounter requirements with this patient on []. Medical Complications: Falls RN For Eval/Treatment: Yes Pt Meets Homebound Status: Unsteady balance w/ amb, POST DISCHARGE ORDERS: Activity Instructions for Disc: No restrictions Weight Bearing Status after Di: As tolerated DIET AFTER DISCHARGE: Cardiac Wound/Incision Care: Keep wound/cast CDI CHECKS AFTER DISCHARGE: Checks after discharge: Check blood press - daily TREATMENT/EQUIPMENT ORDERS: Adaptive Equipment Issued: None CERTIFICATION STATEMENT: Certification Statement: Certification Statement: Based on the above finding, I certify that this patient is confined to the home and needs intermittent group home care, physical therapy and/or speech therapy, or continues to need occupational therapy.~ This patient is under my care, and I have initiated the establishment of the plan of care.~ This patient will be followed by myself or a community physician who will periodically review the plan of care. Home Meds Reported Medications Mirtazapine (MIRTAZAPINE) 15 Mg Tab.rapdis, 1 TAB PO QHS for depression for 30 Days, #30 TAB 0 Refills 07/03/21 Brimonidine Tartrate/Timolol (COMBIGAN EYE DROPS) 5 Ml Drops, 5 ML OP BID for glaucoma, DROP 07/03/21 Carvedilol (CARVEDILOL) 25 Mg Tablet, 6.25 MG PO BIDWMEALS for CARDIAC, TAB 07/03/21 Pantoprazole Sodium (PANTOPRAZOLE SODIUM ) 40 Mg Tablet.dr, 40 MG PO DAILYAC for GERD, TAB 01/31/21 Potassium Chloride (POTASSIUM CHLORIDE ) 20 Meq Tablet.er, 40 MEQ PO DAILY for SUPPLEMENT, TAB.SR 01/31/21 Carbidopa/Levodopa (CARBIDOPA-LEVO ER 50-200 TAB) 1 Each Tablet.er, 1 EACH PO TID for PARKINSONS, TAB.SR 01/31/21 Acyclovir (ACYCLOVIR) 800 Mg Tablet, 800 MG PO BID for PREVENT SHINGLES, TAB 01/31/21 Tramadol Hcl (TRAMADOL HCL) 50 Mg Tablet, 50 MG PO TID PRN for PAIN, TAB 0 Refills 01/31/21 Ferrous Sulfate (FEOSOL) 325 Mg Tablet, 1 TAB PO DAILY for anemia for 30 Days, #30 TAB 0 Refills 07/23/20 [place]-3 Fatty Acids/Fish Oil (FISH OIL 1,000 MG CAPSULE) 1 Each Capsule, 1 EACH PO DAILY for vitamin, CAP 06/15/18 Latanoprost (LATANOPROST) 2.5 Ml Drops, 1 DROP EACHEYE QHS for Eye, #2.5 ML 3 Refills 05/17/18 Tamsulosin Hcl (FLOMAX) 0.4 Mg Cap.er.24h, 0.4 MG PO HS, TAB 11/28/15 Calcium Carbonate/Vitamin D3 (CALCIUM 600 + VIT D 200 TABLET) 1 Each Tablet, 2 EACH PO DAILY for SUPPLEMENT 11/28/15 Multivitamin (DAILY MULTIPLE VITAMIN) 1 Each Tablet, 1 EACH PO DAILY 11/28/15 Simvastatin (SIMVASTATIN) 20 Mg Tablet, 20 MG PO DAILY 08/19/13 TAWNY GUDINO MD Jul 05, 2021 07:54
--- NOTE | 2021-07-05 07:56 | PDOC ---
Provider Note Date of Service: DATE: 07/05/21 TIME: 07:55 Provider Note [id number] Justifications for Admission Other Justification TAWNY GUDINO MD Jul 05, 2021 07:56
[2021-07-05] MEDS: FERROUS SULFATE 325 MG TABLET. PO SCH (08:28)
[2021-07-05] MEDS: MULTIVITAMIN with MINERAL TABLET. PO SCH (08:29)
[2021-07-05] MEDS: OMEGA-3 FATTY ACIDS/FISH OIL 1,000 MG CAPSULE. PO SCH (08:29)
[2021-07-05 08:30] VITALS: BP 111/55
[2021-07-05] MEDS: CARVEDILOL 6.25 MG TABLET. PO SCH (08:30)
[2021-07-05] MEDS: PANTOPRAZOLE 40 MG TABLET.DR. PO SCH (08:30)
[2021-07-05] MEDS: POTASSIUM CHLORIDE 20 MEQ TABLET.ER. PO SCH (08:30)
[2021-07-05] MEDS: ACYCLOVIR 200 MG CAPSULE. PO SCH (08:30)
[2021-07-05] MEDS: CALCIUM CARB/VIT D3 500/200 TABLET. PO SCH (08:30)
[2021-07-05] MEDS: SIMVASTATIN 20 MG TABLET PO SCH (08:30)
[2021-07-05] MEDS: CARBIDOPA/LEVODOPA CR 25/100MG TABLET.SA. PO SCH (08:34)
[2021-07-05] MEDS: TIMOLOL 0.5% OPHTH SOLUTION 5ML BOTTLE. OU SCH (08:36)
[2021-07-05] MEDS: BRIMONIDINE 0.2% OPHTH SOLUTION 5ML BOTTLE. OU SCH (08:36)
--- NOTE | 2021-07-05 09:21 | HP ---
DATE OF SERVICE: 07/04/2021 ADMIT DATE: 07/03/2021 CHIEF COMPLAINT: Fall, chest pain. 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 Now, he is complaining of right shoulder pain and back pain. He also developed some chest pain while in the hospital ER. X-rays were unremarkable as was EKG on admission. The chest pain has subsided and he feels generally better now, but still uncomfortable in general. PAST MEDICAL HISTORY: Takes aspirin and Plavix for previous coronary artery disease and stent placement. SOCIAL HISTORY: , not physically active. Lives at home. Nonsmoker, nondrinker. FAMILY HISTORY: Unremarkable. REVIEW OF SYSTEMS: No other complaints. OBJECTIVE: ENT: All within normal limits. NECK: No masses, nodes or bruits. LUNGS: Clear without tachypnea. CARDIOVASCULAR: Regular rate. No irregular beat or murmur. ABDOMEN: Benign. EXTREMITIES: No active joint or skin lesions or signs of injury. NEUROLOGIC: Physiologic . Gait not tested. Cranial nerves appear to be intact. No focal findings noted. ASSESSMENT: pain after a fall, no sign of . Chest pain, likely noncardiac in nature. PLAN: Continue as medications as ordered. Likely discharge today or tomorrow unless further problems develop. YULIA DANGELO: Dorinda TID: [id number]
--- NOTE | 2021-07-05 16:24 | DS ---
DATE OF DISCHARGE: 07/05/2021 HOSPITAL SUMMARY: An 85-year-old white male who had a fall at home and came in with generalized pain and some left-sided chest pain. There were no fractures on x-rays. All laboratory studies including troponin were unremarkable. It was felt that this was chest wall pain and not cardiac pain, who is seen in consultation by Dr. Lakhani as well. He is feeling generally better and stable and able to be followed as an outpatient at this point. FINAL DIAGNOSIS: Fall with secondary musculoskeletal chest pain. OPERATIONS, PROCEDURES, AND COMPLICATIONS: None. CONSULTATION: Dr. Lakhani. DISPOSITION: All meds remain the same at home. Tylenol as needed for additional pain relief. Activity as tolerated. CAM/DUSTY/LOTTIE DR: CAM/kizzy TID: [id number]
--- NOTE | 2021-07-05 16:48 | PDOC ---
PROGRESS NOTES Date of Service: DATE: 07/05/21 TIME: 16:48 Subjective Subjective No new complaints Objective Objective Vital Signs Date Time Temp Pulse Resp B/P (MAP) Pulse Ox O2 Delivery O2 Flow Rate FiO2 07/05/21 08:30 57 111/55 07/05/21 08:00 Room Air 07/05/21 07:00 98.8 22 96 98.8 Intake and Output 07/05/21 07:00 Intake Total 810 ml Output Total 400 ml Balance 410 ml Intake Oral 810 ml Output Urine Total 400 ml # Bowel Movements 1 Physical Exam Abdomen: Soft Heart: Regular rate Extremities: No edema General: Alert, Oriented X3 HEENT: Atraumatic Lungs: Clear to auscultation Neuro: Normal speech Psych/Mental Status: Mood NL Assessment Assessment 1. Chest pain with atypical features, musculoskeletal resulting from his mechanical fall. Myocardial infarction has been ruled out. His symptoms are currently resolved. 2. Coronary artery disease, reported PCI in the past. Cardiac catheterization in January 2020 showed diffuse disease without any lesions needing intervention. Continue current secondary prevention measures. 3. Hypertension: Controlled 4. Chronic combined systolic and diastolic heart failure: Recent 2D echo showed LVEF 40 to 45%. He is clinically well compensated. Continue current medical regimen. 5. Hyperlipidemia: Continue statins 6. Orthostatic hypotension: Being treated with Florinef 7. Parkinson's disease: Continue current medical regimen 8. Multiple myeloma: Being followed by oncology team 9. DM2: Treat per IM Okay for DC from cardiac standpoint Plan Plan of Care Problems Medical Problems: (1) Contusion of right shoulder Status: Acute (2) Fall Status: Acute (3) Fever Status: Acute Comment Review of Relevant I have reviewed the following items justine (where applicable) has been applied. Vitals/I & O Vital Sign - Last 24 Hours 07/04/21 07/04/21 07/04/21 07/04/21 18:42 19:35 20:00 22:30 Temp 98.8 98.4 98.8 98.4 Pulse 64 78 70 Resp 18 18 B/P (MAP) 145/70 134/83 (100) 152/80 (104) Pulse Ox 96 95 O2 Delivery Room Air Room Air Room Air 07/05/21 07/05/21 07/05/21 07/05/21 03:00 07:00 08:00 08:30 Temp 98.1 98.8 98.1 98.8 Pulse 57 57 Resp 18 22 B/P (MAP) 111/55 (73) 119/57 (77) 111/55 Pulse Ox 96 96 O2 Delivery Room Air Room Air Intake and Output 07/04/21 07/04/21 07/05/21 15:00 23:00 07:00 Intake Total 360 ml 250 ml 200 ml Output Total 400 ml Balance 360 ml -150 ml 200 ml RYAN BUNCH MD Jul 05, 2021 16:48
== END 2021-07-05 09:57 | disposition home or self-care (01) | DRG 313 ==
LOC: ER 08:32 → 6 SOUTH 15:03 → OBSVTOIN 07-04 23:32
PROVIDERS: ADMIT Family Medicine; ATTEND Family Medicine
DX: R07.89 Other chest pain (principal); C90.00 Multiple myeloma not having achieved remission; I50.42 Chronic combined systolic (congestive) and diastolic (congestive) heart failure; G61.0 Guillain-Barre syndrome; E11.9 Type 2 diabetes mellitus without complications; E78.5 Hyperlipidemia, unspecified; G20 Parkinson's disease; I11.0 Hypertensive heart disease with heart failure; I25.10 Atherosclerotic heart disease of native coronary artery without angina pectoris; I95.1 Orthostatic hypotension; S40.011A Contusion of right shoulder, initial encounter; F32.A Depression, unspecified; G89.29 Other chronic pain; M19.90 Unspecified osteoarthritis, unspecified site; I25.2 Old myocardial infarction; W01.0XXA Fall on same level from slipping, tripping and stumbling without subsequent striking against object, initial encounter; Z79.82 Long term (current) use of aspirin; Z82.49 Family history of ischemic heart disease and other diseases of the circulatory system; Z85.46 Personal history of malignant neoplasm of prostate; Z87.891 Personal history of nicotine dependence; Z95.5 Presence of coronary angioplasty implant and graft; Y93.89 Activity, other specified; Y92.89 Other specified places as the place of occurrence of the external cause; Y99.8 Other external cause status; Z20.822 Contact with and (suspected) exposure to COVID-19
CPT/HCPCS: 36415; 71045; 72100; 73030; 73521; 80053; 81001; 83690; 83880; 84484; 85025; 85610; 87426; 93005; G0378; G0379; 99285-25

== ENCOUNTER → 2021-07-21 | Outpatient (CLI) | payer MEDICARE ==
[2021-07-05 08:30] VITALS: BP 111/55
[~2021-07-21] MED LIST changes: +CARV25TA2 PO; +MIRT15TA90 PO
[2021-07-21 11:30] LABS: CALCIUM 8.5 mg/dL (8.5-10.1); CREATININE 0.8 mg/dL (0.7-1.3); GFR 92.3; POTASSIUM 3.9 mmol/L (3.5-5.1)
[2021-07-21 11:31] LABS: BASO % 0 % (0-3); EOS # 0.1 x10^3/uL (0.0-0.7); EOS % 2 % (0-3); HEMATOCRIT 34.2 % (39.0-53.0); HEMOGLOBIN 11.6 g/dL (13.0-17.5); LYMPH # 0.7 x10^3/uL (1.0-4.8); LYMPH % 15 % (24-48); MEAN CORPUSCULAR HEMOGLOBIN 35 pg (25-35); MEAN CORPUSCULAR HGB CONC 34 g/dL (31-37); MEAN CORPUSCULAR VOLUME 104 fL (79-100); MONO # 0.3 x10^3/uL (0.0-1.1); MONO % 8 % (0-9); NEUT # 3.2 x10^3/uL (1.8-7.7); NEUT % 75 % (31-73); PLATELET COUNT 106 x10^3/uL (140-400); RED CELL DISTRIBUTION WIDTH 14.4 % (11.5-14.5); WHITE BLOOD COUNT 4.2 x10^3/uL (4.0-11.0)
[2021-07-21 11:36] LABS: ALBUMIN 2.8 g/dL (3.4-5.0); ALBUMIN/GLOBULIN RATIO 0.9 (1.0-1.7); TOTAL BILIRUBIN 0.5 mg/dL (0.2-1.0); TOTAL PROTEIN 5.8 g/dL (6.4-8.2)
== END ==
LOC: ONCLAB 10:49
PROVIDERS: ATTEND Physician Assistant
DX: C90.00 Multiple myeloma not having achieved remission (principal)
CPT/HCPCS: 36415; 80053; 85025

== ENCOUNTER → 2021-07-27 | Outpatient (CLI) | payer MEDICARE, OTHER ==
[2021-07-05 08:30] VITALS: BP 111/55
--- NOTE | 2021-07-27 16:41 | KCIC ---
MR LUMBAR SPINE [id number] Date: 07/27/2021 10:15 AM Indication: LUMBAGO WITH SCIAITCA RIGHT SIDE. Pt has active multiple myeloma. LBP into right hip. Pa in up into right flank also. Comparison: Lumbar spine radiograph 07/03/2021. CT abdomen and pelvis 09/22/2020 Technique: Multi-planar multi-weighted magnetic resonance imaging of the lumbar spine was performed w ithout intravenous contrast using the standard lumbar spine protocol. FINDINGS: Straightening of the lumbar lordosis. No acute fracture. Mild chronic height loss at L2 and L5. Mild to moderate multilevel degenerative disc desiccation and disc height loss. Fatty marrow replacement a t L4, L5, and the sacrum. Heterogeneous lower thoracic and upper lumbar marrow signal. The conus terminates at a normal level. No abnormal signal is seen within the visualized distal spina l cord. No clumping of intrathecal nerve roots. Bilateral renal simple cysts. T11-T12: Disc bulge. Mild facet arthropathy. No significant spinal stenosis. Mild left neural foramin al narrowing. T12-L1: No disc bulge. Mild facet arthropathy. No significant spinal canal stenosis or neural foramin al narrowing. L1-L2: Disc bulge. Mild facet arthropathy. No significant spinal stenosis or neural foraminal narrowi ng. L2-L3: Disc bulge. Mild facet arthropathy. No significant spinal stenosis or neural foraminal narrowi ng. L3-L4: Disc bulge with annular tear. Mild facet arthropathy. Ligamentum flavum thickening. Mild spina l stenosis and lateral recess narrowing. Moderate bilateral neural foraminal narrowing. L4-L5: Disc bulge. Mild facet arthropathy. Ligamentum flavum thickening. Moderate spinal stenosis. Mi ld lateral recess narrowing. Moderate to severe bilateral neural foraminal narrowing. L5-S1: Disc bulge with right greater than left far lateral protrusions. Mild facet arthropathy. No si gnificant spinal stenosis. Mild right and moderate to severe left neural foraminal narrowing. IMPRESSION: 1. Moderate to severe lumbar spondylosis, detailed level by level above. 2. Heterogeneous lower thoracic and upper lumbar marrow signal, consistent with history of myeloproli ferative disorder. Fatty marrow replacement of the lower lumbar spine and sacrum could relate to post treatment changes. Electronically signed by: Bean Traore MD (07/27/2021 4:38 PM) [id number]
== END ==
LOC: KCIC MRI 10:01
PROVIDERS: ATTEND Family Medicine
DX: M47.817 Spondylosis without myelopathy or radiculopathy, lumbosacral region (principal); M47.815 Spondylosis without myelopathy or radiculopathy, thoracolumbar region; M48.07 Spinal stenosis, lumbosacral region; M48.05 Spinal stenosis, thoracolumbar region; M54.41 Lumbago with sciatica, right side
CPT/HCPCS: 72148

== ENCOUNTER → 2021-08-25 | Outpatient (CLI) | payer MEDICARE, OTHER ==
[2021-08-25 12:41] LABS: BASO % 1 % (0-3); EOS # 0.1 x10^3/uL (0.0-0.7); EOS % 2 % (0-3); HEMATOCRIT 37.3 % (39.0-53.0); HEMOGLOBIN 12.6 g/dL (13.0-17.5); LYMPH # 1.1 x10^3/uL (1.0-4.8); LYMPH % 31 % (24-48); MEAN CORPUSCULAR HEMOGLOBIN 34 pg (25-35); MEAN CORPUSCULAR HGB CONC 34 g/dL (31-37); MEAN CORPUSCULAR VOLUME 102 fL (79-100); MONO # 0.3 x10^3/uL (0.0-1.1); MONO % 8 % (0-9); NEUT # 2.1 x10^3/uL (1.8-7.7); NEUT % 59 % (31-73); PLATELET COUNT 102 x10^3/uL (140-400); RED BLOOD COUNT 3.65 x10^6/uL (4.30-5.70); RED CELL DISTRIBUTION WIDTH 13.9 % (11.5-14.5); WHITE BLOOD COUNT 3.6 x10^3/uL (4.0-11.0)
[2021-08-25 12:56] LABS: CALCIUM 8.5 mg/dL (8.5-10.1); CREATININE 0.7 mg/dL (0.7-1.3); GFR 107.4; POTASSIUM 4.4 mmol/L (3.5-5.1)
[2021-08-25 13:01] LABS: ALBUMIN 3.1 g/dL (3.4-5.0); ALBUMIN/GLOBULIN RATIO 1.1 (1.0-1.7); TOTAL BILIRUBIN 0.5 mg/dL (0.2-1.0); TOTAL PROTEIN 5.8 g/dL (6.4-8.2)
== END ==
LOC: ONCLAB 11:27
PROVIDERS: ATTEND Physician Assistant
DX: C90.00 Multiple myeloma not having achieved remission (principal); Z85.46 Personal history of malignant neoplasm of prostate
CPT/HCPCS: 36415; 80053; 83615; 85025

== ENCOUNTER 2021-08-31 17:03 | Inpatient (IN) | payer MEDICARE, OTHER ==
[~2021-08-31] VITALS: Ht 177.8 cm; Wt 84.4 kg
[2021-08-31] MEDS: ASPIRIN 325 MG TABLET PO ONE (17:15)
[2021-08-31 17:25] LABS: BASO % 0 % (0-3); EOS # 0.1 x10^3/uL (0.0-0.7); EOS % 2 % (0-3); HEMATOCRIT 38.4 % (39.0-53.0); HEMOGLOBIN 12.9 g/dL (13.0-17.5); LYMPH # 1.2 x10^3/uL (1.0-4.8); LYMPH % 25 % (24-48); MEAN CORPUSCULAR HEMOGLOBIN 35 pg (25-35); MEAN CORPUSCULAR HGB CONC 34 g/dL (31-37); MEAN CORPUSCULAR VOLUME 103 fL (79-100); MONO # 0.3 x10^3/uL (0.0-1.1); MONO % 7 % (0-9); NEUT # 3.3 x10^3/uL (1.8-7.7); NEUT % 67 % (31-73); PLATELET COUNT 109 x10^3/uL (140-400); RED BLOOD COUNT 3.73 x10^6/uL (4.30-5.70); RED CELL DISTRIBUTION WIDTH 14.2 % (11.5-14.5)
--- NOTE | 2021-08-31 17:59 | PHYS DOC ---
Past Medical History Past Medical History: CAD, Cancer, Diverticulitis, Heart Disease, Hypertension, MO, Other Additional Past Medical Histor: PROSTATE CA,PARKINSONS,MULTIPLE MYELOMA,GUILLAIN BARRE SYNDROME Past Surgical History: No Surgical History Additional Past Surgical Histo: BONE MARROW ASPIRATION, CARDIAC STENT Smoking Status: Former Smoker Alcohol Use: None Drug Use: None General Adult EDM: Chief Complaint: CHEST PAIN HPI: HPI: Patient is a 86 year old male with history of hypertension, CAD, MO, plasmacytoma, prostate cancer, Guillain Vista disease, Parkinson's, who presents the ED today complaining of 4 out of 10 left-sided sharp intermittent chest pain, symptoms have been going on since this afternoon. Patient states the pain has actually decreased since it began this afternoon. Denies shortness of breath, denies fever, coughing or congestion. Review of Systems: Review of Systems: Constitutional: Denies fever or chills. [] Eyes: Denies change in visual acuity. [] HENT: Denies nasal congestion or sore throat. [] Respiratory: Denies cough or shortness of breath. [] Cardiovascular: Reports chest pain GI: Denies abdominal pain, nausea, vomiting, bloody stools or diarrhea. [] : Denies dysuria. [] Musculoskeletal: Denies back pain or joint pain. [] Integument: Denies rash. [] Neurologic: Denies headache, focal weakness or sensory changes. [] Endocrine: Denies polyuria or polydipsia. [] [] Psychiatric: Denies depression or anxiety. [] Heart Score: C/O Chest Pain: Yes HEART Score for Chest Pain: HEART Score for Chest Pain Response (Comments) Value History Slighlty/Non-Suspicious 0 ECG Normal 0 Age > 65 2 Risk Factors >3 Risk Factors or Hx CAD 2 Troponin < Normal Limit 0 Total 4 Risk Factors: Risk Factors: DM, Current or recent (<one month) smoker, HTN, HLP, family history of CAD, obesity. Risk Scores: Score 0 - 3: 2.5% MACE over next 6 weeks - Discharge Home Score 4 - 6: 20.3% MACE over next 6 weeks - Admit for Clinical Observation Score 7 - 10: 72.7% MACE over next 6 weeks - Early Invasive Strategies Current Medications: Current Medications Medications (Trade) Dose Ordered Sig/Isaac Start Time Stop Time Status Last Admin Dose Admin Aspirin (Cat Aspirin) 325 mg 1X ONCE 08/31/21 17:15 08/31/21 17:19 DC Morphine Sulfate (Morphine Sulfate) 2 mg PRN Q15MIN PRN 08/31/21 17:15 09/01/21 17:14 Nitroglycerin (Nitrostat) 0.4 mg PRN Q5MIN PRN 08/31/21 17:15 09/01/21 17:14 Allergies: Allergies: Allergies Coded Allergies Type Severity Reaction Last Updated Verified No Known Drug Allergies 07/03/21 No Physical Exam: PE: Constitutional: Well developed, well nourished, no acute distress, non-toxic appearance. [] HENT: Normocephalic, atraumatic, bilateral external ears normal, oropharynx moist, no oral exudates, nose normal. [] Eyes: PERRLA, EOMI, conjunctiva normal, no discharge. [] Neck: Normal range of motion, no tenderness, supple, no stridor. [] Cardiovascular:Heart rate regular rhythm, no murmur [] Lungs & Thorax: Bilateral breath sounds clear to auscultation [] Abdomen: Bowel sounds normal, soft, no tenderness, no masses, no pulsatile masses. [] Skin: Warm, dry, no erythema, no rash. [] Back: No tenderness, no CVA tenderness. [] Extremities: No tenderness, no cyanosis, no clubbing, ROM intact, no edema. [] Neurologic: Alert and oriented X 3, normal motor function, normal sensory function, no focal deficits noted. [] Psychologic: Affect normal, judgement normal, mood normal. [] Current Patient Data: Labs: Laboratory Tests Test 08/31/21 17:17 White Blood Count 5.0 x10^3/uL (4.0-11.0) Red Blood Count 3.73 x10^6/uL (4.30-5.70) L Hemoglobin 12.9 g/dL (13.0-17.5) L Hematocrit 38.4 % (39.0-53.0) L Mean Corpuscular Volume 103 fL (79-100) H Mean Corpuscular Hemoglobin 35 pg (25-35) Mean Corpuscular Hemoglobin Concent 34 g/dL (31-37) Red Cell Distribution Width 14.2 % (11.5-14.5) Platelet Count 109 x10^3/uL (140-400) L Neutrophils (%) (Auto) 67 % (31-73) Lymphocytes (%) (Auto) 25 % (24-48) Monocytes (%) (Auto) 7 % (0-9) Eosinophils (%) (Auto) 2 % (0-3) Basophils (%) (Auto) 0 % (0-3) Neutrophils # (Auto) 3.3 x10^3/uL (1.8-7.7) Lymphocytes # (Auto) 1.2 x10^3/uL (1.0-4.8) Monocytes # (Auto) 0.3 x10^3/uL (0.0-1.1) Eosinophils # (Auto) 0.1 x10^3/uL (0.0-0.7) Basophils # (Auto) 0.0 x10^3/uL (0.0-0.2) Laboratory Tests 08/31/21 17:17 Vital Signs: Vital Signs Date Time Temp Pulse Resp B/P (MAP) Pulse Ox O2 Delivery O2 Flow Rate FiO2 08/31/21 17:23 98.6 64 18 176/83 (114) 100 98.6 EKG: EK interpreted by Dr. Zapata sinus rhythm heart rate 72 no STEMI [] Radiology/Procedures: Radiology/Procedures: []PROCEDURE: PORTABLE CHEST 1V Study: XR CHEST 1V Indication: Chest pain. Comparison: 07/03/2021 Findings: Unchanged prominence of the cardiomediastinal silhouette. Aortic calcific atherosclerosis. Similar hilar configuration. Haziness at the medial infrahilar right lung favored summation artifact. No layering effusion or pneumothorax. Osteopenia. Chronic right rib deformities. Impression: No acute radiographic abnormality of the chest. No relevant change from the 07/03/2021 comparison. Electronically signed by: CARMELINA MOSES MD (08/31/2021 6:11 PM) [facility] DICTATED and SIGNED BY: CARMELINA MOSES MD DATE: 08/31/211809 Course & Med Decision Making: Course & Med Decision Making Pertinent Labs and Imaging studies reviewed. (See chart for details) This is a 86-year-old male patient presenting to the ED today with chest pain that began this afternoon. EKG is negative, initial high-sensitivity troponin is negative, CBC CMP with no acute findings. Spoke with Dr. Gudino who accepted patient for admission, routine consult placed for cardiology Dragon Disclaimer: Dragkaushik Disclaimer: This electronic medical record was generated, in whole or in part, using a voice recognition dictation system. Departure Departure Impression: Primary Impression: Chest pain Qualified Codes: R07.9 - Chest pain, unspecified Disposition: 09 ADMITTED INPATIENT Condition: STABLE Referrals: TAWNY GUDINO MD (PCP) JANENE TAVERAS [employer] August 31, 2021 17:59
--- NOTE | 2021-08-31 18:14 | RAD ---
Study: XR CHEST 1V Indication: Chest pain. Comparison: 07/03/2021 Findings: Unchanged prominence of the cardiomediastinal silhouette. Aortic calcific atherosclerosis. Similar hi lar configuration. Haziness at the medial infrahilar right lung favored summation artifact. No layeri ng effusion or pneumothorax. Osteopenia. Chronic right rib deformities. Impression: No acute radiographic abnormality of the chest. No relevant change from the 07/03/2021 comparison. Electronically signed by: CARMELINA MOSES MD (08/31/2021 6:11 PM) [facility]
[2021-08-31 18:20] LABS: CALCIUM 8.7 mg/dL (8.5-10.1); CREATININE 0.7 mg/dL (0.7-1.3); GFR 107.4; POTASSIUM 3.9 mmol/L (3.5-5.1)
[2021-08-31 18:25] LABS: ALBUMIN 3.4 g/dL (3.4-5.0); ALBUMIN/GLOBULIN RATIO 1.2 (1.0-1.7); TOTAL BILIRUBIN 0.4 mg/dL (0.2-1.0); TOTAL PROTEIN 6.2 g/dL (6.4-8.2)
[2021-08-31] MEDS: NITROGLYCERIN SUBLINGUAL 0.4 MG BOTTLE OF 25. SL PRN (19:13)
[2021-08-31] MEDS: MORPHINE SULFATE 2 MG/ML INJ. IV/SQ PRN (19:13)
[2021-08-31] MEDS ORDERED: MORPHINE SULFATE 4 MG/ML INJ. IVP PRN (19:15)
[2021-08-31] MEDS ORDERED: ONDANSETRON PF 4 MG/2 ML VIAL. IVP PRN (19:15)
[2021-08-31] MEDS ORDERED: NITROGLYCERIN SUBLINGUAL 0.4 MG BOTTLE OF 25. SL PRN (19:15)
[2021-08-31 19:36] LABS: BACTERIA,URINE 0 /HPF (0-FEW); WBC,URINE 0 /HPF (0-4)
[2021-08-31 20:38] VITALS: BP 153/92
[2021-08-31] MEDS ORDERED: traMADol 50 MG TABLET PO PRN (21:45)
[2021-08-31] MEDS: MIRTAZAPINE 15 MG TABLET PO SCH (21:53)
[2021-08-31] MEDS: CARBIDOPA/LEVODOPA CR 25/100MG TABLET.SA. PO SCH (21:53)
[2021-08-31] MEDS: BRIMONIDINE 0.2% OPHTH SOLUTION 5ML BOTTLE. OD SCH (21:53)
[2021-08-31] MEDS: ACYCLOVIR 200 MG CAPSULE. PO SCH (21:53)
[2021-08-31] MEDS: TAMSULOSIN 0.4 MG CAP.ER.24H. PO SCH (21:53)
[2021-08-31] MEDS: TIMOLOL 0.5% OPHTH SOLUTION 5ML BOTTLE. OU SCH (21:54)
--- NOTE | 2021-08-31 21:54 | EKG ---
[facility] [address] [place] [address] Test Date: 2021-08-31 Test Time: 17:05:38 Pat Name: AIDA COWART Department: Room: Gender: M [employer]: : 1935 Requested By: JANENE TAVERAS Order Number: [id number] Reading MD: Measurements Intervals Fowler Rate: 72 P: 0 OK: 200 QRS: -23 QRSD: 84 T: 65 QT: 398 QTc: 437 Interpretive Statements SINUS ARRHYTHMIA VENTRICULAR PREMATURE COMPLEX(ES) LEFTWARD AXIS QRS(T) CONTOUR ABNORMALITY CONSISTENT WITH ANTEROSEPTAL INFARCT AGE UNDETERMINED ABNORMAL ECG RI6.01 No previous ECG available for comparison
[2021-09-01] MEDS ORDERED: PANTOPRAZOLE 40 MG TABLET.DR. PO SCH (07:30)
[2021-09-01] MEDS ORDERED: CARVEDILOL 6.25 MG TABLET. PO SCH (08:00)
[2021-09-01] MEDS ORDERED: MULTIVITAMIN with MINERAL TABLET. PO SCH (09:00)
[2021-09-01] MEDS ORDERED: CALCIUM CARB/VIT D3 500/200 TABLET. PO SCH (09:00)
[2021-09-01] MEDS ORDERED: OMEGA-3 FATTY ACIDS/FISH OIL 1,000 MG CAPSULE. PO SCH (09:00)
[2021-09-01] MEDS ORDERED: FERROUS SULFATE 325 MG TABLET. PO SCH (09:00)
[2021-09-01] MEDS ORDERED: POTASSIUM CHLORIDE 20 MEQ TABLET.ER. PO SCH (09:00)
[2021-09-01] MEDS ORDERED: SIMVASTATIN 20 MG TABLET PO SCH (09:00)
[2021-09-01] MEDS ORDERED: LATANOPROST 0.005% OPHTH SOLUTION 2.5ML BOTTLE. OU SCH (21:00)
== END 2021-09-01 | disposition home or self-care (01) | DRG 313 ==
LOC: ER 17:03 → 6 SOUTH 19:30
PROVIDERS: ADMIT Family Medicine; ATTEND Family Medicine
DX: R07.89 Other chest pain (principal); C90.00 Multiple myeloma not having achieved remission; I50.42 Chronic combined systolic (congestive) and diastolic (congestive) heart failure; Z20.822 Contact with and (suspected) exposure to COVID-19; Z90.49 Acquired absence of other specified parts of digestive tract; G20 Parkinson's disease; I25.10 Atherosclerotic heart disease of native coronary artery without angina pectoris; Z85.46 Personal history of malignant neoplasm of prostate; Z87.891 Personal history of nicotine dependence; Z95.5 Presence of coronary angioplasty implant and graft; I16.0 Hypertensive urgency; I95.1 Orthostatic hypotension; E78.5 Hyperlipidemia, unspecified; E11.9 Type 2 diabetes mellitus without complications; I11.0 Hypertensive heart disease with heart failure
CPT/HCPCS: 36415; 71045; 80053; 81001; 83735; 83880; 84443; 84484; 85025; 93005; J2270; 99285-25; G0378